=== PATIENT | female | born 1960 | race Caucasian/White ===

== ENCOUNTER → 2018-03-22 | Outpatient (CLI) | payer OTHER ==
[~2018-03-22] MED LIST: CLC100 PO; LVNIS30 SQ
[2018-03-22 12:43] LABS: BASO % 0.9 %; BASO ABS # 0.04 K/uL (0-0.2); EOS ABS # 0.14 K/uL (0-0.5); HEMATOCRIT 39.7 % (37-47); HEMOGLOBIN 13.3 g/dL (12.0-16.0); LYMPH % 31.2 %; LYMPH ABS # 1.46 K/uL (1.2-3.4); MEAN CELL VOLUME 94.3 fL (80-100); MEAN CORPUSCULAR HEMOGLOBIN 31.6 pg (25-34); MEAN CORPUSCULAR HGB CONC 33.5 g/dl (32-36); MEAN PLATELET VOLUME 9.7 fL (7.4-10.4); MONO % 7.3 %; MONO ABS # 0.34 K/uL (0.11-0.59); NEUT % 57.6 %; PLATELET COUNT 268 K/uL (130-400); RED CELL DISTRIBUTION WIDTH CV 13.5 % (11.5-14.5); RED CELL DISTRIBUTION WIDTH SD 46.7 fL (36.4-46.3); WHITE BLOOD COUNT 4.68 K/uL (4.8-10.8)
[2018-03-22 12:54] LABS: ALBUMIN 3.4 gm/dl (3.4-5.0); BLOOD UREA NITROGEN 13 mg/dl (7-18); CALCIUM 8.7 mg/dl (8.5-10.1); CARBON DIOXIDE 31 mmol/L (21-32); CREATININE 0.67 mg/dl (0.60-1.20); GLUCOSE 63 mg/dl (70-99); SODIUM 143 mmol/L (136-145)
[2018-03-22 12:57] LABS: ALKALINE PHOSPHATASE 53 U/L (45-117); ALT/SGPT 17 U/L (12-78); AST/SGOT 17 U/L (15-37); TOTAL PROTEIN 7.3 gm/dl (6.4-8.2)
== END | disposition home or self-care (01) ==
LOC: C.LAB1850 10:15
PROVIDERS: ATTEND Internal Medicine Infectious Disease
DX: T84.59XA Infection and inflammatory reaction due to other internal joint prosthesis, initial encounter (principal); Z96.659 Presence of unspecified artificial knee joint; Y79.1 Therapeutic (nonsurgical) and rehabilitative orthopedic devices associated with adverse incidents; Y83.1 Surgical operation with implant of artificial internal device as the cause of abnormal reaction of the patient, or of later complication, without mention of misadventure at the time of the procedure

== ENCOUNTER → 2018-03-29 | Outpatient (CLI) | payer OTHER ==
[~2018-03-29] MED LIST changes: +GADAVIST IV PRN
--- NOTE | 2018-03-29 19:04 | DIAGNOSTIC IMAGING REPORT ---
CERVICAL SPINE COMBO HISTORY: Pain. Neuropathy. 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 COMPARISON STUDY: None. FINDINGS: Normal signal characteristics of the vertebral bodies. Moderate degenerative disc change from C5 through C7. Signal characteristics of the cervical cord are unremarkable. Sagittal images suggest posterior extradural defects from C4 through C7. No abnormal postcontrast sagittal enhancement. Cerebellar tonsils are somewhat low-lying. C2-C3: No significant central canal or neural foraminal narrowing. C3-C4: No significant central canal or neural foraminal narrowing. C4-C5: Minimal broad-based disc bulge. There is contact with but no deformity of the cervical cord. Minimal narrowing of the neuroforamina bilaterally. C5-C6: Mild broad-based disc herniation. Mild impact anterior cervical cord. Significant narrowing of the left and to a lesser extent right neural foramina. C6-C7: Left central bulging disc showing no significant impact with the cervical cord. Moderate narrowing left neuroforamina. C7-T1: No significant central canal or neural foraminal narrowing. IMPRESSION: 1. Broad-based disc herniation C5-C6. Mild impact with anterior cervical cord with significant narrowing of the left and to a lesser extent right neural foramina. 2. Left central bulging disc C6-C7 with minimal if any impact upon the cervical cord and moderate narrowing left neuroforamina. 3. Minimal broad-based disc bulge C4-C5 4. No abnormal postcontrast enhancement The above report was generated using voice recognition software. It may contain grammatical, syntax or spelling errors. Electronically signed by: Chalino Valdivia M.D. 03/29/2018 7:02 PM Dictated Date/Time: 03/29/2018 6:56 PM
== END | disposition home or self-care (01) ==
LOC: C.MRI 17:09
PROVIDERS: ATTEND Psychiatry & Neurology Neurology
DX: M50.00 Cervical disc disorder with myelopathy, unspecified cervical region (principal); M50.222 Other cervical disc displacement at C5-C6 level; M50.223 Other cervical disc displacement at C6-C7 level

== ENCOUNTER → 2018-06-10 | Outpatient (CLI) | payer OTHER ==
[~2018-06-10] MED LIST changes: +AMOX500C3 PO; +CHOL1CAP57 PO; -CLC100 PO; +CYAN100020 PO; +DTRSR/10 PO; +FLUC100T4 PO; -GADAVIST IV PRN; -LVNIS30 SQ; +MULT-506 PO; +OXYC-90 PO
== END | disposition home or self-care (01) ==
LOC: C.MAMM 10:22
PROVIDERS: ATTEND Physician Assistant Medical
DX: M85.88 Other specified disorders of bone density and structure, other site (principal)

== ENCOUNTER → 2018-06-17 | Outpatient (CLI) | payer OTHER ==
--- NOTE | 2018-06-17 18:25 | DIAGNOSTIC IMAGING REPORT ---
MRI LUMBAR SPINE W/O CONTRAST CLINICAL HISTORY: Left leg radiculopathy and weakness. TECHNIQUE: Sagittal and axial T1, T2 and STIR images were obtained. COMPARISON STUDY: Conventional radiographic study dated 05/13/2018 OBSERVATIONS: The vertebral bodies and posterior elements appear intact. There is no abnormal bony signal present to suggest a marrow replacement process. L1-2: No disc protrusions or extrusions. No evidence of spinal canal or neural foraminal compromise. L2-3: No disc protrusions or extrusions. No evidence of spinal canal or neural foraminal compromise. L3-4: No disc protrusions or extrusions. No evidence of spinal canal or neural foraminal compromise. L4-5: No disc protrusions or extrusions. No evidence of spinal canal or neural foraminal compromise. L5-S1: There is disc degeneration disc narrowing. No focal herniations are visualized. There is no significant spinal or foraminal stenosis. In the sagittal images, there is a suspected T10-11 disc bulge. The conus medullaris and cauda equina appear normal. On the account executive metalworking images, no left kidney is visualized IMPRESSION: 1. No lumbar spine disc herniations. No evidence of spinal or foraminal stenosis 2. On the account [employer] images, no left kidney is visualized within the left renal fossa. Electronically signed by: Camilo Elliott M.D. 06/17/2018 6:23 PM Dictated Date/Time: 06/17/2018 6:18 PM
== END | disposition home or self-care (01) ==
LOC: C.MRI 17:37
PROVIDERS: ATTEND Neurological Surgery
DX: M79.606 Pain in leg, unspecified (principal)

== ENCOUNTER 2021-09-12 12:46 | Inpatient (IN) ==
[2021-09-12 13:43] LABS: Basophils # (auto) 0.02 K/uL (0-0.2); Basophils % (auto) 0.2 %; Eosinophils # (auto) 0.01 K/uL (0-0.5); Eosinophils % (auto) 0.1 %; Hematocrit (blood only) 42.1 % (37-47); Hemoglobin 13.8 g/dL (12.0-16.0); Immature Granulocytes # (auto) 0.04 K/uL (0.00-0.02); Immature Granulocytes % (auto) 0.3 %; Lymphocytes # (auto) 0.27 K/uL (1.2-3.4); Lymphocytes % (auto) 2.2 %; Mean Corpuscular Hemoglobin 30.3 pg (25-34); Mean Corpuscular Hgb Conc 32.8 g/dL (32-36); Mean Corpuscular Volume 92.5 fL (80-100); Mean Platelet Volume 10.1 fL (7.4-10.4); Monocytes # (auto) 0.53 K/uL (0.11-0.59); Monocytes % (auto) 4.2 %; Neutrophils # (auto) 11.67 K/uL (1.4-6.5); Platelet Count 265 K/uL (130-400); RDW Coefficient of Variation 14.1 % (11.5-14.5); RDW Standard Deviation 47.5 fL (36.4-46.3); Red Blood Count 4.55 M/uL (4.2-5.4); White Blood Count 12.54 K/uL (4.8-10.8)
[2021-09-12 14:03] LABS: Albumin Globulin Ratio 0.8 (0.9-2); Albumin Level 3.4 gm/dl (3.4-5.0); BUN Creatinine Ratio 18.4 (10-20); Bilirubin,Total 0.6 mg/dl (0.2-1); Calcium 9.1 mg/dl (8.5-10.1); Creatinine Clr Calc Pharmacy 94.7 ml/min; Est GFR (African American) 99.7 ml/min; Globulin 4.4 gm/dl (2.5-4.0); Total Protein 7.8 gm/dl (6.4-8.2)
[2021-09-12] MEDS ORDERED: SODIUM CHLORIDE 0.9% 1000ML 1,000 ML IV ONE (14:07)
[2021-09-12] MEDS ORDERED: ONDANSETRON INJ 2 MG/ML 2 ML VIAL IV STA (14:07)
[2021-09-12] MEDS ORDERED: cefTRIAXone SODIUM 2,000 MG/70 ML BAG IV STA (14:07)
--- NOTE | 2021-09-12 14:26 | Emergency Department Note ---
Impression & Plan Cellulitis, Lymphedema, Fever, Renal mass, Superficial thrombophlebitis ED Provider Note NAME: ELVIN SILVESTRE AGE: 61 SEX: F : 1960 ARRIVES VIA: Ambulance INFORMANT: Patient ED PROVIDER(S): Jose Bardales DO CHIEF COMPLAINT: Chills, nausea vomiting and right leg pain HPI: Patient is a 61-year-old female who went to see her PCP. She has been having right foot pain over first metatarsal for the past several weeks. Got worse over the past week. She also notes pain in the back of the calf and feels warm. She is been having shaking chills and is unable to control it. She had nausea and vomiting with this. She denies any recorded fevers. No chest pain or shortness of breath but notes that when she vomited she did feel little short of breath. No dysuria, urgency, or frequency. No other exacerbating or remitting factors. ROS: See above HPI for pertinent positives & negatives. A total of 10 systems reviewed and were otherwise negative. PAST MEDICAL HISTORY:See Below PAST SURGICAL HISTORY:See Below FAMILY HISTORY:See Below SOCIAL HISTORY:See Below HOME MEDICATIONS:See Below ALLERGIES:See Below VITALS:See Below PHYSICAL EXAMINATION: GENERAL: Sitting up in bed, alert, ill-appearing, disheveled, shaking chills EYE EXAM: normal conjunctiva. PERRL and EOM's grossly intact. OROPHARYNX: Dry mucous membranes NECK: supple, no nuchal rigidity, no adenopathy, non-tender LUNGS: Clear to auscultation. Normal chest wall mechanics HEART: no murmurs, S1 normal and S2 normal ABDOMEN: abdomen soft, non-tender, normo-active bowel sounds, no masses, no rebound or guarding. BACK: Back is symmetrical on inspection and there is no deformity, no midline tenderness, no CVA tenderness. SKIN: no rashes and no bruising UPPER EXTREMITIES: upper extremities are grossly normal. LOWER EXTREMITIES: Calves are equal bilateral. Right calf is warm tender with mild overlying erythema in the posterior aspect. DPs 2 out of 4. Tenderness over the first metatarsal. NEURO EXAM: Normal sensorium, cranial nerves II-XII grossly intact, normal speech, no gross weakness of arms, no gross weakness of legs. No drift. Finger to nose intact. Gross sensation intact. MEDICAL DECISION MAKING: Patient is a 61-year-old female who presents the ER for pain tenderness and warmth as well as erythema in the back of the right calf associated with shaking chills leukocytosis and low-grade fever. IV was established blood work was obtained. She was sent by PCP. Labs showed mild leukocytosis 12.5 thousand. No significant anemia. INR was unremarkable. BMP with slightly elevated chloride. LFTs bilirubin was unremarkable. Troponin was negative. Pro-Mitul 0.46. UA was negative. Covid was negative. Chest x-ray was unremarkable. CT abdomen pelvis showed a questionable renal carcinoma. This was discussed with the patient. Venous Doppler shows superficial thrombosis and the saphenous was very torturous. Nothing is within 5 cm of deep venous structure. There is a small distal clot that may be close to 5 cm per radiology/Franky. Will defer to the hospitalist for treatment and hold at this time. Patient was given IV Rocep hin. She was updated bedside. Discussed with hospitalist and she will be evaluated for further work-up. Triage Nursing notes reviewed. Limited review of prior medical records performed Vital Signs: reviewed and remarkable for no significant abnormalities Differential diagnosis: Differential diagnosis includes etiologies such as sepsis, UTI, pneumonia, metabolic, electrolyte abnormalities, cardiac sources, intracerebral event, toxicologic, neurological, as well as others were entertained. ER treatment provided: See below Diagnostics interpreted by me: ECG: Sinus rhythm rate of 87 Normal axis Poor baseline QTC 450 Cardiac Monitoring: An order was placed for continuous cardiac monitoring. The monitor shows a rate of 90 with sinus rhythm. Laboratory studies: As stated above and show below. Imaging studies: CT abdomen pelvis showed questionable renal carcinoma X-ray of the foot was reviewed as it was done earlier today and [facility] and showed no obvious fractures or dislocations per my review Duplex of the lower extremity shows multiple areas of superficial clot and was very torturous. Nothing is within 5 cm of deep venous structure. There is a small distal clot that may be close to 5 cm per Franky from radiology. Consultation(s): Discussed with Dr. Mast for further evaluation Procedures: none Critical Care: None Past Med/Surg History Medical History (Updated 09/12/21 @ 16:39 by Jose Bardales DO) Chronic back pain Degenerative disc disease History of asthma History of depression History of hyperlipidemia History of migraine headaches History of sleep apnea NO LONGER USES DEVICE SINCE WT LOSS Morbid obesity with BMI of 40.0-44.9, adult Osteopenia of lumbar spine Vitamin B12 deficiency Surgical History H/O gastric bypass H/O hernia repair H/O total knee replacement (12/07/14) History of 2 sections History of cardiac cath 2010 - [facility] - ABN EKG - NO STENTS/ANGIOPLASTY History of colonoscopy History of D&C History of eye surgery X 3 History of foot surgery History of hernia repair X 2 UMBILICAL History of left knee replacement History of ovarian cystectomy History of revision of total replacement of left knee joint History of weight loss surgery 2016 History of wisdom tooth extraction Hx of section Nausea and vomiting after administration of anesthetic agent Family History Father Cardiac disorder Myocardial infarction Grandfather Heart disease Mother Diabetes Chronic kidney disease Breast cancer Stroke syndrome Hypertension Heart disease Stroke Sister Ovarian cancer Diabetes Valvular heart disease Atrial fibrillation Cardiomyopathy Malignant neoplasm of uterus Slow to wake up after anesthesia Breast cancer Grandmother Diabetes Hypertension Daughter Endometriosis Uncle Myocardial infarction Grandmother (Maternal) No problems noted. 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) How many Children do You have: 2 Feels Safe at Home: Yes Childhood Exposure to Second-Hand Smoke: Yes caffeine: Yes Dental Care, Regularly: Yes Physical Activity Frequency: Does not Exercise Seatbelt Use: always Sunscreen Use: Yes Assistive Devices: Denture - Upper and Glasses Allergies Allergies Allergy/AdvReac Type Severity Reaction Status Date / Time coconut Allergy Severe HIVES Verified 08/14/21 08:22 Sulfa (Sulfonamide Allergy Unknown PT UNSURE Verified 08/19/21 12:59 Antibiotics) oxaprozin Allergy Unknown Verified 08/14/21 08:22 Home Meds Home Medications Medication Instructions Recorded Confirmed cyanocobalamin (vitamin B-12) 1,000 mcg PO PM tab 05/17/19 08/14/21 1,000 mcg tablet multivitamin 1 tab PO PM 05/17/19 08/14/21 ascorbic acid (vitamin C) 500 mg 500 mg PO PM cap 06/08/19 08/14/21 capsule cholecalciferol (vitamin D3) 125 5,000 unit PO PM 06/20/19 08/14/21 mcg (5,000 unit) tablet (Vitamin D3) ibuprofen 600 mg tablet 600 mg PO BID PRN 12/08/19 08/14/21 fluconazole 150 mg tablet 150 mg PO Q3D PRN tab 05/30/21 08/14/21 Previous Rx's Medication Instructions Recorded escitalopram oxalate 10 mg tablet 10 mg PO DAILY #30 tab 11/28/20 (Lexapro) doxycycline hyclate 100 mg capsule 100 mg PO BID #14 cap 08/19/21 Results & Data (ED) Vital Signs Vital Signs - 24 hr 09/12/21 12:46 09/12/21 15:12 09/12/21 15:30 Temperature 37.7 C H Temperature Source Oral Pulse Rate 88 72 Pulse Rate [Apical] 74 Pulse Rate from SpO2 Sensor 72 Respiratory Rate 18 19 22 Respiratory Effort / Characteristics Non-Labored Non-Labored Spontaneous Respiratory Depth Normal Respiratory Pattern Regular Blood Pressure 140/85 139/70 Blood Pressure [Right Arm] 142/72 H Blood Pressure Mean 103 93 Blood Pressure Mean [Right Arm] 95 Pulse Oximetry 98 95 95 Oxygen Delivery Method Room Air Room Air Room Air Sepsis Recent Fever Within 48 Hours No Sepsis New/Unexplained Change in Mental Status No Sepsis Action Taken by Nursing No Action Required 09/12/21 16:18 Temperature Temperature Source Pulse Rate 84 Pulse Rate [Apical] Pulse Rate from SpO2 Sensor 82 Respiratory Rate 21 Respiratory Effort / Characteristics Respiratory Depth Respiratory Pattern Blood Pressure 126/67 Blood Pressure [Right Arm] Blood Pressure Mean 86 Blood Pressure Mean [Right Arm] Pulse Oximetry 96 Oxygen Delivery Method Room Air Sepsis Recent Fever Within 48 Hours Sepsis New/Unexplained Change in Mental Status Sepsis Action Taken by Nursing Laboratory Data Result diagrams: 09/12/21 13:00 09/12/21 15:10 Lab Results 09/12/21 09/12/21 09/12/21 Range/Units 13:00 13:00 14:15 WBC 12.54 H (4.8-10.8) K/uL RBC 4.55 (4.2-5.4) M/uL Hgb 13.8 (12.0-16.0) g/dL Hct 42.1 (37-47) % MCV 92.5 (80-100) fL MCH 30.3 (25-34) pg MCHC 32.8 (32-36) g/dL RDW Std Deviation 47.5 H (36.4-46.3) fL RDW Coeff of Ashlie 14.1 (11.5-14.5) % Plt Count 265 (130-400) K/uL MPV 10.1 (7.4-10.4) fL Immature Gran % (Auto) 0.3 % Neut % (Auto) 93.0 % Lymph % (Auto) 2.2 % [place] % (Auto) 4.2 % Eos % (Auto) 0.1 % Baso % (Auto) 0.2 % Neut # (Auto) 11.67 H (1.4-6.5) K/uL Lymph # (Auto) 0.27 L (1.2-3.4) K/uL [place] # (Auto) 0.53 (0.11-0.59) K/uL Eos # (Auto) 0.01 (0-0.5) K/uL Baso # (Auto) 0.02 (0-0.2) K/uL Immature Gran # (Auto) 0.04 H (0.00-0.02) K/uL PT 10.3 (9.0-12.0) Seconds INR 1.0 (0.9-1.1) APTT 24.8 (21.0-31.0) Seconds PTT Ratio 0.9 Sodium 139 (136-145) mmol/L Potassium (3.5-5.1) mmol/L Chloride 108 H (98-107) mmol/L Carbon Dioxide 25 (21-32) mmol/L Anion Gap 5.0 (3-11) BUN 14 (7-18) mg/dl Creatinine 0.75 (0.6-1.2) mg/dl Est Cr Clr Drug Dosing 94.7 ml/min Est GFR ( Amer) 99.7 ml/min Est GFR (Non-Af Amer) 86.0 ml/min BUN/Creatinine Ratio 18.4 (10-20) Glucose 93 (70-99) mg/dl Lactate (0.4-2.0) mmol/L Calcium 9.1 (8.5-10.1) mg/dl Magnesium (1.8-2.4) mg/dl Total Bilirubin 0.6 (0.2-1) mg/dl AST (15-37) U/L ALT 14 (12-78) U/L Alkaline Phosphatase 62 (45-117) U/L Troponin I (0-0.045) ng/ml Total Protein 7.8 (6.4-8.2) gm/dl Albumin 3.4 (3.4-5.0) gm/dl Globulin 4.4 H (2.5-4.0) gm/dl Albumin/Globulin Ratio 0.8 L (0.9-2) Procalcitonin (0-0.5) ng/ml Urine Color Urine Appearance (Clear) Urine pH (4.5-7.5) Ur Specific [place] (1.000-1.030) Urine Protein (Negative) Urine Glucose (UA) (Negative) Urine Ketones (Negative) Urine Blood (Negative) Urine Nitrite (Negative) Urine Bilirubin (Negative) Urine Urobilinogen (Negative) Ur Leukocyte Esterase (Negative) COVID-19 Eval Order SARS-CoV-2 (PCR) (Negative) 09/12/21 09/12/21 09/12/21 Range/Units 14:15 14:25 14:50 WBC (4.8-10.8) K/uL RBC (4.2-5.4) M/uL Hgb (12.0-16.0) g/dL Hct (37-47) % MCV (80-100) fL MCH (25-34) pg MCHC (32-36) g/dL RDW Std Deviation (36.4-46.3) fL RDW Coeff of Ashlie (11.5-14.5) % Plt Count (130-400) K/uL MPV (7.4-10.4) fL Immature Gran % (Auto) % Neut % (Auto) % Lymph % (Auto) % [place] % (Auto) % Eos % (Auto) % Baso % (Auto) % Neut # (Auto) (1.4-6.5) K/uL Lymph # (Auto) (1.2-3.4) K/uL [place] # (Auto) (0.11-0.59) K/uL Eos # (Auto) (0-0.5) K/uL Baso # (Auto) (0-0.2) K/uL Immature Gran # (Auto) (0.00-0.02) K/uL PT (9.0-12.0) Seconds INR (0.9-1.1) APTT (21.0-31.0) Seconds PTT Ratio Sodium (136-145) mmol/L Potassium (3.5-5.1) mmol/L Chloride (98-107) mmol/L Carbon Dioxide (21-32) mmol/L Anion Gap (3-11) BUN (7-18) mg/dl Creatinine (0.6-1.2) mg/dl Est Cr Clr Drug Dosing ml/min Est GFR ( Amer) ml/min Est GFR (Non-Af Amer) ml/min BUN/Creatinine Ratio (10-20) Glucose (70-99) mg/dl Lactate 1.0 (0.4-2.0) mmol/L Calcium (8.5-10.1) mg/dl Magnesium (1.8-2.4) mg/dl Total Bilirubin (0.2-1) mg/dl AST (15-37) U/L ALT (12-78) U/L Alkaline Phosphatase (45-117) U/L Troponin I (0-0.045) ng/ml Total Protein (6.4-8.2) gm/dl Albumin (3.4-5.0) gm/dl Globulin (2.5-4.0) gm/dl Albumin/Globulin Ratio (0.9-2) Procalcitonin (0-0.5) ng/ml Urine Color Yellow Urine Appearance Clear (Clear) Urine pH 8.5 H (4.5-7.5) Ur Specific [place] 1.015 (1.000-1.030) Urine Protein Negative (Negative) Urine Glucose (UA) Negative (Negative) Urine Ketones Negative (Negative) Urine Blood Negative (Negative) Urine Nitrite Negative (Negative) Urine Bilirubin Negative (Negative) Urine Urobilinogen Negative (Negative) Ur Leukocyte Esterase Negative (Negative) COVID-19 Eval Order Covid19 at [facility] SARS-CoV-2 (PCR) (Negative) 09/12/21 09/12/21 09/12/21 Range/Units 14:50 15:10 15:10 WBC (4.8-10.8) K/uL RBC (4.2-5.4) M/uL Hgb (12.0-16.0) g/dL Hct (37-47) % MCV (80-100) fL MCH (25-34) pg MCHC (32-36) g/dL RDW Std Deviation (36.4-46.3) fL RDW Coeff of Ashlie (11.5-14.5) % Plt Count (130-400) K/uL MPV (7.4-10.4) fL Immature Gran % (Auto) % Neut % (Auto) % Lymph % (Auto) % [place] % (Auto) % Eos % (Auto) % Baso % (Auto) % Neut # (Auto) (1.4-6.5) K/uL Lymph # (Auto) (1.2-3.4) K/uL [place] # (Auto) (0.11-0.59) K/uL Eos # (Auto) (0-0.5) K/uL Baso # (Auto) (0-0.2) K/uL Immature Gran # (Auto) (0.00-0.02) K/uL PT (9.0-12.0) Seconds INR (0.9-1.1) APTT (21.0-31.0) Seconds PTT Ratio Sodium (136-145) mmol/L Potassium 4.1 (3.5-5.1) mmol/L Chloride (98-107) mmol/L Carbon Dioxide (21-32) mmol/L Anion Gap (3-11) BUN (7-18) mg/dl Creatinine (0.6-1.2) mg/dl Est Cr Clr Drug Dosing ml/min Est GFR ( Amer) ml/min Est GFR (Non-Af Amer) ml/min BUN/Creatinine Ratio (10-20) Glucose (70-99) mg/dl Lactate (0.4-2.0) mmol/L Calcium (8.5-10.1) mg/dl Magnesium 1.7 L (1.8-2.4) mg/dl Total Bilirubin (0.2-1) mg/dl AST 15 (15-37) U/L ALT (12-78) U/L Alkaline Phosphatase (45-117) U/L Troponin I < 0.015 (0-0.045) ng/ml Total Protein (6.4-8.2) gm/dl Albumin (3.4-5.0) gm/dl Globulin (2.5-4.0) gm/dl Albumin/Globulin Ratio (0.9-2) Procalcitonin 0.46 (0-0.5) ng/ml Urine Color Urine Appearance (Clear) Urine pH (4.5-7.5) Ur Specific [place] (1.000-1.030) Urine Protein (Negative) Urine Glucose (UA) (Negative) Urine Ketones (Negative) Urine Blood (Negative) Urine Nitrite (Negative) Urine Bilirubin (Negative) Urine Urobilinogen (Negative) Ur Leukocyte Esterase (Negative) COVID-19 Eval Order SARS-CoV-2 (PCR) NEGATIVE (Negative) Administered Medications Discontinued Medications Sodium Chloride (Nss 1000ml) 1,000 mls @ 999 mls/hr IV .Q1H1M ONE Stop: 09/12/21 15:07 Last Admin: 09/12/21 14:54 Dose: 999 mls/hr Documented by: [id number] Ceftriaxone Sodium (Rocephin) 2,000 mg in 70 mls @ 140 mls/hr IV NOW STA Stop: 09/12/21 14:36 Last Infusion: 09/12/21 15:23 Dose: 0 mls/hr Documented by: [id number] Admin: 09/12/21 14:53 Dose: 140 mls/hr Documented by: [id number] Ioversol (Optiray 320 100ml) 96 ml IV ONCE ONE Stop: 09/12/21 15:00 Last Admin: 09/12/21 15:02 Dose: 96 ml Documented by: [id number] Ondansetron HCl (Ondansetron Inj 2 Mg/Ml 2 Ml Vial) 4 mg IV NOW STA Stop: 09/12/21 14:08 Last Admin: 09/12/21 14:54 Dose: 4 mg Documented by: [id number] Imaging Data Radiologist's Impression: Abdomen/Pelvis CT 09/12/21 14:07 CT SCAN OF THE ABDOMEN AND PELVIS WITH IV CONTRAST CLINICAL HISTORY: Vomiting. COMPARISON STUDY: No priors. TECHNIQUE: Following the IV administration of 96 cc of Optiray 320, CT scan of the abdomen and pelvis is performed from the lung bases to the proximal femora. Images are reviewed in the axial, sagittal, and coronal planes. IV contrast was administered without complication. A dose lowering technique was utilized adhering to the principles of ALARA. The examination is degraded by motion artifact. CT DOSE: 935.11 mGy.cm FINDINGS: Lung bases: The heart is normal in size and without pericardial effusion. There is elevation of the right hemidiaphragm and bibasilar atelectasis. No airspace consolidation or pleural effusion is identified. Liver: The contrast-enhanced liver is enlarged, measuring 22 cm in length. The liver demonstrates diffusely diminished attenuation consistent with hepatic st eatosis. There is no intrahepatic biliary ductal dilatation. The hepatic veins and portal veins are patent. Gallbladder: Unremarkable. Spleen: Normal in size and attenuation. There are calcified splenic granulomas. Pancreas: Unremarkable. Adrenal glands: Unremarkable. Kidneys: No left kidney is identified. 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 Both renal moieties enhance homogeneously. A 3 mm nonobstructing calculus is seen in the right upper pole moiety. There is no hydronephrosis. A 2.3 cm soft tissue lesion arises from the right pelvic renal moiety seen on image #288. Abdominal vasculature: The abdominal aorta is normal in course and caliber noting mild to moderate atherosclerotic calcification. Stomach and bowel: Postoperative change is seen involving the stomach. There is moderate to advanced colonic diverticulosis without CT evidence of acute diverticulitis. No bowel obstruction is seen. Fecal retention is present throughout the colon. The appendix is well-visualized and normal. Peritoneum: There is no intraperitoneal free air or abdominal ascites. There is a ventral surgical scar with evidence of previous ventral hernia repair. Lymphadenopathy: There is bilateral inguinal lymphadenopathy, right greater than left. The largest node seen on image #460 and measures 3.4 x 2.1 cm. Prominent retroperitoneal iliac chain nodes measure up to 12 mm short axis (axial image #201. No upper abdominal or mesenteric adenopathy is seen. Pelvic viscera: The bladder, uterus, and adnexa are normal as visualized. Skeletal structures: The skeletal structures are osteopenic. There is mild to moderate lumbosacral spondylosis. No lytic or blastic lesions are seen. IMPRESSION: 1. There are no acute infectious or inflammatory findings in the abdomen or pelvis. 2. Postoperative change is noted in the stomach. No bowel obstruction is identified. 3. 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 4. A 2.3 cm soft tissue lesion arises from the lower pole of the right pelvic renal moiety. Renal cell carcinoma is the diagnosis of exclusion. Follow-up with urology is recommended. 5. A nonobstructing calculus is noted in the right upper renal moiety. 6. Moderate to advanced colonic diverticulosis without CT evidence of acute diverticulitis. 7. Right greater than left inguinal lymphadenopathy is nonspecific and may be reactive. There are also prominent retroperitoneal and iliac chain nodes. Clinical correlation will be required. 8. Additional findings as above. ACT 112: Positive. There are findings on this exam that require communication between the performing entity and the patient following Patient Test Result Information Act ([place] Act 112) guidelines. Electronically signed by: Solis Pa M.D. 09/12/2021 3:22 PM Venous Doppler Study 09/12/21 14:07 RIGHT LOWER EXTREMITY VENOUS DOPPLER HISTORY: Right lower cavity pain. COMPARISON STUDY: None. FINDINGS: There is normal compressibility, flow, and augmentation within the right lower extremity deep venous system. Multiple areas of thrombosis seen within the right greater saphenous vein at the proximal thigh, distal thigh, proximal calf. A few mildly enlarged right inguinal lymph nodes measuring up to 4.4 x 3.9 x 1.5 cm. IMPRESSION: 1. No DVT within the right lower extremity. 2. Scattered areas of superficial thrombus identified within the right greater saphenous vein. 3. Mild right inguinal lymphadenopathy. ACT 112: Negative or not required by law. Electronically signed by: Franky Yoo M.D. 09/12/2021 4:16 PM Chest X-Ray 09/12/21 14:08 XR chest 1V portable CLINICAL HISTORY: Sepsis. COMPARISON STUDY: Chest radiograph July 01, 2019. FINDINGS: Lung volumes are normal. Lungs are clear. There is no pneumothorax or pleural effusion. Cardiac size is normal. Mediastinal contours are normal. There is no evidence for pulmonary edema. IMPRESSION: No acute cardiopulmonary findings. ACT 112: Negative or not required by law. Electronically signed by: Sahil Tineo M.D. 09/12/2021 3:08 PM Discharge Plan Visit Data Chief Complaint: Illness Stated Complaint: CHILLS, NAUSEA, VOMITING, R FOOT PAIN ED Provider: oJse Bardales Discharge Problem: Cellulitis, Lymphedema, Fever, Renal mass, Superficial thrombophlebitis Forms Stand Alone Forms: My [facility] Prescriptions Prescriptions: No Action doxycycline hyclate 100 mg capsule 100 mg PO BID Qty: 14 RF: 0 escitalopram oxalate [Lexapro] 10 mg tablet 10 mg PO DAILY Qty: 30 RF: 5 cyanocobalamin (vitamin B-12) 1,000 mcg tablet 1,000 mcg PO PM RF: 0 fluconazole 150 mg tablet 150 mg PO Q3D PRN (Reason: Unknown) RF: 0 multivitamin tablet 1 tab PO PM RF: 0 ascorbic acid (vitamin C) 500 mg capsule 500 mg PO PM RF: 0 cholecalciferol (vitamin D3) [Vitamin D3] 5,000 unit Tablet 5,000 unit PO PM RF: 0 ibuprofen 600 mg tablet 600 mg PO BID PRN (Reason: pain) RF: 0 Referrals Referrals: Inocente Daley MD [Primary Care Provider] - Discharge Problem: Cellulitis Qualifiers: Site of cellulitis: unspecified site Qualified Code(s): L03.90 - Cellulitis, unspecified Fever Qualifiers: Fever type: unspecified Qualified Code(s): R50.9 - Fever, unspecified Superficial thrombophlebitis Qualifiers: Superficial thrombophlebitis-Involved body area: lower extremity Laterality: right Qualified Code(s): I80.01 - Phlebitis and thrombophlebitis of superficial vessels of right lower extremity
[2021-09-12 14:38] LABS: Appearance Urine Clear (Clear); Bilirubin Urine Negative (Negative); Blood Urine Negative (Negative); Color Urine Yellow; Glucose Urine UA Negative (Negative); Ketones Urine Negative (Negative); Leukocyte Esterase Urine Negative (Negative); Nitrite Urine Negative (Negative); Protein Urine Negative (Negative); Specific Gravity Urine 1.015 (1.000-1.030); Urobilinogen Urine Negative (Negative); pH Urine 8.5 (4.5-7.5)
[2021-09-12 14:43] LABS: Partial Thromboplastin Ratio 0.9; Partial Thromboplastin Time 24.8 Seconds (21.0-31.0); Prothrombin Time 10.3 Seconds (9.0-12.0)
[2021-09-12] MEDS ORDERED: OPTIRAY 320 100ml IV ONE (14:59)
--- NOTE | 2021-09-12 15:09 | XRay Report ---
XR chest 1V portable CLINICAL HISTORY: Sepsis. COMPARISON STUDY: Chest radiograph July 01, 2019. FINDINGS: Lung volumes are normal. Lungs are clear. There is no pneumothorax or pleural effusion. Car diac size is normal. Mediastinal contours are normal. There is no evidence for pulmonary edema. IMPRESSION: No acute cardiopulmonary findings. ACT 112: Negative or not required by law. Electronically signed by: Sahil Tineo M.D. 09/12/2021 3:08 PM
--- NOTE | 2021-09-12 15:23 | CT Scan Report ---
CT SCAN OF THE ABDOMEN AND PELVIS WITH IV CONTRAST CLINICAL HISTORY: Vomiting. COMPARISON STUDY: No priors. TECHNIQUE: Following the IV administration of 96 cc of Optiray 320, CT scan of the abdomen and pelvi s is performed from the lung bases to the proximal femora. Images are reviewed in the axial, sagittal , and coronal planes. IV contrast was administered without complication. A dose lowering technique wa s utilized adhering to the principles of ALARA. The examination is degraded by motion artifact. CT DOSE: 935.11 mGy.cm FINDINGS: Lung bases: The heart is normal in size and without pericardial effusion. There is elevation of the r ight hemidiaphragm and bibasilar atelectasis. No airspace consolidation or pleural effusion is identi fied. Liver: The contrast-enhanced liver is enlarged, measuring 22 cm in length. The liver demonstrates dif fusely diminished attenuation consistent with hepatic steatosis. There is no intrahepatic biliary esthela david dilatation. The hepatic veins and portal veins are patent. Gallbladder: Unremarkable. Spleen: Normal in size and attenuation. There are calcified splenic granulomas. Pancreas: Unremarkable. Adrenal glands: Unremarkable. Kidneys: No left kidney is identified. 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 Both renal m oieties enhance homogeneously. A 3 mm nonobstructing calculus is seen in the right upper pole moiety. There is no hydronephrosis. A 2.3 cm soft tissue lesion arises from the right pelvic renal moiety se en on image #288. Abdominal vasculature: The abdominal aorta is normal in course and caliber noting mild to moderate at herosclerotic calcification. Stomach and bowel: Postoperative change is seen involving the stomach. There is moderate to advanced colonic diverticulosis without CT evidence of acute diverticulitis. No bowel obstruction is seen. Fec al retention is present throughout the colon. The appendix is well-visualized and normal. Peritoneum: There is no intraperitoneal free air or abdominal ascites. There is a ventral surgical sc ar with evidence of previous ventral hernia repair. Lymphadenopathy: There is bilateral inguinal lymphadenopathy, right greater than left. The largest no de seen on image #460 and measures 3.4 x 2.1 cm. Prominent retroperitoneal iliac chain nodes measure up to 12 mm short axis (axial image #201. No upper abdominal or mesenteric adenopathy is seen. Pelvic viscera: The bladder, uterus, and adnexa are normal as visualized. Skeletal structures: The skeletal structures are osteopenic. There is mild to moderate lumbosacral sp ondylosis. No lytic or blastic lesions are seen. IMPRESSION: 1. There are no acute infectious or inflammatory findings in the abdomen or pelvis. 2. Postoperative change is noted in the stomach. No bowel obstruction is identified. 3. 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 4. A 2.3 cm soft tissue lesion arises from the lower pole of the right pelvic renal moiety. Renal tracey l carcinoma is the diagnosis of exclusion. Follow-up with urology is recommended. 5. A nonobstructing calculus is noted in the right upper renal moiety. 6. Moderate to advanced colonic diverticulosis without CT evidence of acute diverticulitis. 7. Right greater than left inguinal lymphadenopathy is nonspecific and may be reactive. There are als o prominent retroperitoneal and iliac chain nodes. Clinical correlation will be required. 8. Additional findings as above. ACT 112: Positive. There are findings on this exam that require communication between the performing entity and the patient following Patient Test Result Information Act ([place] Act 112) guidelines. Electronically signed by: Solis Pa M.D. 09/12/2021 3:22 PM
--- NOTE | 2021-09-12 15:31 | Electrocardiogram Report ---
Test Reason : Blood Pressure : / mmHG Vent. Rate : 087 BPM Atrial Rate : 087 BPM P-R Int : 148 ms QRS Dur : 086 ms QT Int : 374 ms P-R-T Axes : 071 018 071 degrees QTc Int : 450 ms Poor data quality, interpretation may be adversely affected Sinus rhythm with Premature atrial complexes Possible Left atrial enlargement Borderline ECG When compared with ECG of 05-DEC-2014 12:13, Premature atrial complexes are now Present Confirmed by Klaus Lozada ([id number]) on 09/12/2021 3:31:16 PM Referred By: Confirmed By:Klaus Lozada
[2021-09-12 15:37] LABS: Potassium 4.1 mmol/L (3.5-5.1)
[2021-09-12 15:47] LABS: Aspartate Aminotransferase 15 U/L (15-37); Magnesium 1.7 mg/dl (1.8-2.4); Troponin I < 0.015 ng/ml (0-0.045)
--- NOTE | 2021-09-12 16:18 | Ultrasound Report ---
RIGHT LOWER EXTREMITY VENOUS DOPPLER HISTORY: Right lower cavity pain. COMPARISON STUDY: None. FINDINGS: There is normal compressibility, flow, and augmentation within the right lower extremity de ep venous system. Multiple areas of thrombosis seen within the right greater saphenous vein at the pr oximal thigh, distal thigh, proximal calf. A few mildly enlarged right inguinal lymph nodes measuring up to 4.4 x 3.9 x 1.5 cm. IMPRESSION: 1. No DVT within the right lower extremity. 2. Scattered areas of superficial thrombus identified within the right greater saphenous vein. 3. Mild right inguinal lymphadenopathy. ACT 112: Negative or not required by law. Electronically signed by: Franky Yoo M.D. 09/12/2021 4:16 PM
--- NOTE | 2021-09-12 16:31 | History & Physical Report ---
Date of Service September 12, 2021 Assessment & Plan (1) Cellulitis: Plan: Patient reports she has not had any episodes of MRSA. will admit and place on cefazolin 2 gr IV Q8H Patient received a one time dose of ceftriaxone by the ED. will closely monitor her vitals and cbc in AM. (2) Renal mass: Plan: Incidental finding on CT scan will need urology followup (3) Tremor: Plan: chronci and appears stable Patient will followup with Neuro as an outpatient (4) Vitamin B12 deficiency: Plan: on B12 supplements as an outpatient. (5) H/O gastric bypass: (6) Fever: Plan: Patient had a temp while in the ER. will closely monitor vitals. 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 Patient was then placed on chronic suppresion and treated with amoxicillin. Patient follows Dr. Wheeler. Since then patient has had recurrent episodes of right lower extremity cellulitis. Patient has been off antibiotics since January this year without any setbacks, until not. Patient comes in today with a 1 day history of fever, chills, rigors. Patient feels she has pain in her left foot and is unable to bear weight. She was seen by her local telephone operator who states she needed to come to the hospital as she appeared to be sick. Allergies Allergy/AdvReac Type Severity Reaction Status Date / Time coconut Allergy Severe HIVES Verified 09/12/21 16:35 Sulfa (Sulfonamide Allergy Unknown PT UNSURE Verified 09/12/21 16:35 Antibiotics) oxaprozin Allergy Unknown Verified 09/12/21 16:35 Home Medications Medication Instructions Recorded Confirmed Type cyanocobalamin (vitamin B-12) 1,000 mcg PO PM tab 05/17/19 09/12/21 History 1,000 mcg tablet multivitamin 1 tab PO PM 05/17/19 09/12/21 History ascorbic acid (vitamin C) 500 mg 500 mg PO PM cap 06/08/19 09/12/21 History capsule cholecalciferol (vitamin D3) 125 5,000 unit PO PM 06/20/19 09/12/21 History mcg (5,000 unit) tablet (Vitamin D3) ibuprofen 600 mg tablet 600 mg PO BID PRN 12/08/19 09/12/21 History escitalopram oxalate 10 mg tablet 10 mg PO DAILY #30 tab 11/28/20 09/12/21 Rx (Lexapro) fluconazole 150 mg tablet 150 mg PO Q3D PRN tab 05/30/21 09/12/21 History doxycycline hyclate 100 mg capsule 100 mg PO BID #14 cap 08/19/21 09/12/21 Rx Past Med/Surg History Medical History Chronic back pain Degenerative disc disease History of asthma History of depression History of hyperlipidemia History of migraine headaches History of sleep apnea NO LONGER USES DEVICE SINCE WT LOSS Morbid obesity with BMI of 40.0-44.9, adult Osteopenia of lumbar spine Vitamin B12 deficiency Surgical History H/O gastric bypass H/O hernia repair H/O total knee replacement (12/07/14) History of 2 sections History of cardiac cath 2009 - [facility] - ABN EKG - NO STENTS/ANGIOPLASTY History of colonoscopy History of D&C History of eye surgery X 3 History of foot surgery History of hernia repair X 2 UMBILICAL History of left knee replacement History of ovarian cystectomy History of revision of total replacement of left knee joint History of weight loss surgery 2016 History of wisdom tooth extraction Hx of section Nausea and vomiting after administration of anesthetic agent Family History Father Cardiac disorder Myocardial infarction Grandfather Heart disease Mother Diabetes Chronic kidney disease NKF Classification Breast cancer Stroke syndrome Hypertension Heart disease Stroke Sister Ovarian cancer Diabetes Valvular heart disease Atrial fibrillation Cardiomyopathy Malignant neoplasm of uterus Slow to wake up after anesthesia Breast cancer Grandmother Diabetes Hypertension Daughter Endometriosis Uncle Myocardial infarction Grandmother (Maternal) No problems noted. 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) How many Children do You have: 2 Feels Safe at Home: Yes Childhood Exposure to Second-Hand Smoke: Yes caffeine: Yes Dental Care, Regularly: Yes Physical Activity Frequency: Does not Exercise Seatbelt Use: always Sunscreen Use: Yes Assistive Devices: Denture - Upper and Glasses Review of Systems Constitutional: + fever; no sweats Eyes: no blind spots and no diplopia Ear, Nose, Mouth, Throat: no ear pain and no ear trauma Respiratory: no cough and no change in sputum Cardiovascular: no chest pain and no chest pain with activity Gastrointestinal: no abdominal pain Genitourinary: no dysuria and no urinary frequency Musculoskeletal: no back pain Integumentary: no acne and no rash Neurologic: no gait abnormality and no falls Psychiatric: no behavioral changes and no hopelessness Endocrine: no fatigue Hematologic / Lymphatic: no easy bleeding Physical Exam Physical Exam: Constitutional: Patient is pleasant, alert answering questions appropriately and appears to be in no distress. Sister is at bedside. Eyes: anicteric sclerae. Respiratory: Lungs sinha are clear to auscultation without wheezes, rhonchi or rales. Cardiovascular: Regular Rate and Rhythm, Heart Murmur 2/6 holosystolic murmur heard best at RUSB. No rubs or gallops appreciated. Gastrointestinal (Abdomen): Normoactive bowel sounds x4, soft, non-distended, non-tender. Musculoskeletal: No cyanosis or clubbing is appreciated. Trace lymphedema noted to BLE. Extremities: She's noted to have mild erythema circumferentially around the right ankle. This is extremely warm and tender to touch. No open areas are noted. No fluctuant areas are noted. Vascular: DP and PT +2 RLE. Results & Data Results & Data ([facility]) Vital Signs (Past 12 Hours) Vital Signs Temp Pulse Pulse Resp BP BP Pulse Ox 09/12/21 16:18 84 21 126/67 96 09/12/21 15:30 72 22 139/70 95 09/12/21 15:12 74 19 142/72 H 95 09/12/21 12:46 37.7 C H 88 18 140/85 98 PG Care Time/CCT Total # of Minutes Spent Total Time Spent with Patient: Total time spent is greater than 50% in coordination of care (as documented) at patient's floor/unit and/or counseling patient: Coding Level of Care Code 87470 Initial Inpt Care Lvl 3 Diagnoses Cellulitis L03.90 Site of cellulitis: unspecified site Renal mass N28.89 Tremor R25.1 Vitamin B12 deficiency E53.8 H/O gastric bypass Z98.84 Fever R50.9 Fever type: unspecified (1) Cellulitis Site of cellulitis: unspecified site Qualified Code(s): L03.90 - Cellulitis, unspecified (2) Fever Fever type: unspecified Qualified Code(s): R50.9 - Fever, unspecified
[2021-09-12] MEDS ORDERED: ACETAMINOPHEN 325 MG TAB PO PRN (18:43)
[2021-09-12] MEDS ORDERED: ACETAMINOPHEN 325 MG TAB PO SCH (18:45)
[2021-09-12] MEDS: ASCORBIC ACID 500 MG TAB PO SCH (21:55)
[2021-09-12] MEDS: CHOLECALCIFEROL 1,000 UNITS 25 MCG TAB PO SCH (21:55)
[2021-09-12] MEDS: MULTIVITAMIN TAB PO SCH (21:56)
[2021-09-12] MEDS: CYANOCOBALAMIN 500 MCG TABLET (VITAMIN B-12) PO SCH (21:56)
[2021-09-12] MEDS ORDERED: SODIUM CHLORIDE 0.9% 1000ML 500 ML IV ONE (22:34)
[2021-09-13] MEDS: ACETAMINOPHEN 500 MG TAB PO PRN (04:22)
[2021-09-13 07:19] LABS: Hematocrit (blood only) 35.5 % (37-47); Hemoglobin 11.5 g/dL (12.0-16.0); Mean Corpuscular Hemoglobin 29.9 pg (25-34); Mean Corpuscular Hgb Conc 32.4 g/dL (32-36); Mean Corpuscular Volume 92.2 fL (80-100); Mean Platelet Volume 9.6 fL (7.4-10.4); Platelet Count 206 K/uL (130-400); RDW Coefficient of Variation 14.4 % (11.5-14.5); RDW Standard Deviation 48.9 fL (36.4-46.3); Red Blood Count 3.85 M/uL (4.2-5.4); White Blood Count 8.77 K/uL (4.8-10.8)
[2021-09-13] MEDS ORDERED: SODIUM CHLORIDE 0.9% 1000ML 1,000 ML IV ONE (07:40)
[2021-09-13 07:41] LABS: BUN Creatinine Ratio 19.5 (10-20); Calcium 8.6 mg/dl (8.5-10.1); Creatinine Clr Calc Pharmacy 91.6 ml/min; Est GFR (African American) 95.1 ml/min; Est GFR (Non-African American) 82.1 ml/min; Potassium 3.9 mmol/L (3.5-5.1)
[2021-09-13] MEDS: ESCITALOPRAM OXALATE 10 MG TAB PO SCH (08:49)
[2021-09-13] MEDS: ENOXAPARIN INJ 40 MG/0.4 ML SYR SQ SCH (08:49)
[2021-09-13] MEDS: cefTRIAXone SODIUM 2,000 MG in DEXTROSE 5% 50 ML IV SCH (09:34)
[2021-09-13] MEDS: NORMOSOL-R 1,000 ML IV SCH ×2 (10:12→22:04)
[2021-09-13] MEDS: DAPTOmycin 500 MG in SYRINGE 0 ML IV SCH (10:12)
--- NOTE | 2021-09-13 12:27 | Hospitalist Progress Note ---
Date of Service September 13, 2021 Assessment & Plan (1) Septicemia: Plan: 11/26 admission blood cx's + for GPC in chains add daptomycin in the event this is enterococcus change ancef to rocephin repeat blood cx's now echo - r/o SBE (loud murmur on exam) additional IV fluid bolus (NS 1 L x 1) followed by normosol at 125cc/hr. (2) Cellulitis: Plan: RLE. change ancef to rocephin. add dapto as mentioned in #[address] right foot due to pain (and fairly unremarkable dorsum of foot) -- r/o abscess, hardware issues, etc. mid-foot gout?? once CT is back consider NSAIDs. clinically no signs/symptoms of septic arthritis of R ankle. (3) Right foot pain: Plan: 2nd to swelling from cellulitis? mid-foot gout? abscess of foot? other? CT R foot ordered. Consider NSAIDs for pain. (4) Renal mass: Plan: Incidental finding on CT scan 2.3cm R-sided renal mass worrisome for ca will inform patient of this (5) Tremor: Plan: 2nd PD (6) Vitamin B12 deficiency: Plan: Hb 11.5 (7) H/O gastric bypass: Plan: noted caution with NSAIDs if used (a couple of doses then d/c) (8) Fever: Plan: Patient had a temp while in the ER. will closely monitor vitals. secondary to problem 1 (9) Systolic murmur: Plan: echo to assess valve function and rule out vegetations in light of #1 (10) Parkinson disease: Plan: DVT proph - lovenox Admission and Anticipated Discharge Date Admission Date: September 12, 2021 Subjective patient states she continues with mild soreness of the RLE but particularly the right foot the right foot pain started about 1 week ago BEFORE the distal right johnson became erythematous and swollen of note - records show she had R GSV ablation on 08/08/[address] Wray has never had gout hurts to bear weight on the right foot because of pain she can flex the right ankle without pain denies right knee pain still feeling "warm" this am appetite ok pt states she is aware of a heart murmur - has had "for years" Review of Systems Review of Systems: gen - fever, sweats/chills pulm - no cough or congestion or dyspnea cv - no orthopnea Gi - no N/V/abd pain Physical Exam Physical Exam: gen - NAD, obese, a/o x 3 mouth - MMM neck - no JVD heart - 2-3/6 DAINE LSB, RRR, s1 s2 lungs - CTA b/l abd - soft, NT, ND, BS+, no HSM ext - 1+ edema right johnson/ankle/foot; <1+ edema left leg; pulses 2+ b/l skin - mild erythema extending from mid-calf region/tib-fib down to the achilles area; no fluctuance or crepitus musculo - I can passively dorsiflex/plantarflex the R ankle without any pain; right foot dorsum - NO REDNESS OR abnormalities but very tender with minimal palpation Results & Data Results & Data ([facility]) Vital Signs (Past 12 Hours) Vital Signs Temp Pulse Pulse Resp BP Pulse Ox 09/13/21 08:21 50 L 09/13/21 07:11 36.8 C 45 L 16 97/59 L 95 09/13/21 02:08 36.7 C 71 16 115/74 98 Laboratory Results blood cx's -- 11/26 + for GPC in chains Diagnostic Findings doppler RLE findings noted - areas of superficial clot scattered in GSV but no DVT CXR clear CT a/p - 2.3cm mass right kidney, diverticular disease PG Care Time/CCT Total # of Minutes Spent Total Time Spent with Patient: Total time spent is greater than 50% in coordination of care (as documented) at patient's floor/unit and/or counseling patient: Coding Level of Care Code 25092 Subseq Hosp Care Lvl 3 Diagnoses Cellulitis L03.90 Site of cellulitis: unspecified site Renal mass N28.89 Tremor R25.1 Vitamin B12 deficiency E53.8 H/O gastric bypass Z98.84 Fever R50.9 Fever type: unspecified Systolic murmur R01.1 Parkinson disease G20 Septicemia A41.9 Right foot pain M79.671 (1) Fever Fever type: unspecified Qualified Code(s): R50.9 - Fever, unspecified (2) Cellulitis Site of cellulitis: unspecified site Qualified Code(s): L03.90 - Cellulitis, unspecified
[2021-09-13 13:26] LABS: C Reactive Protein 14.2 mg/dl (0-0.29); Uric Acid 4.4 mg/dl (2.6-7.2)
[2021-09-13] MEDS ORDERED: ceFAZolin 2000MG 2,000 MG/15 ML SYR IV SCH (14:00)
--- NOTE | 2021-09-13 15:04 | Electrocardiogram Report ---
Test Reason : Blood Pressure : / mmHG Vent. Rate : 057 BPM Atrial Rate : 057 BPM P-R Int : 154 ms QRS Dur : 100 ms QT Int : 468 ms P-R-T Axes : 053 015 036 degrees QTc Int : 455 ms Sinus bradycardia Nonspecific T wave abnormality Abnormal ECG When compared with ECG of 12-SEP-2021 14:10, Premature atrial complexes are no longer Present Vent. rate has decreased BY 30 BPM Nonspecific T wave abnormality now evident in Inferior leads Nonspecific T wave abnormality now evident in Lateral leads Confirmed by Klaus Lozada ([id number]) on 09/13/2021 3:03:45 PM Referred By: REFERRED SELF Confirmed By:Klaus Lozada
--- NOTE | 2021-09-13 15:22 | CT Scan Report ---
CT foot RT wo con CLINICAL HISTORY: severe mid-foot pain; eval abscess, hardware, etc TECHNIQUE: Multidetector row helical CT of the right foot was performed without intravenous contrast. Coronal and sagittal reformations were obtained. Automated dose lowering techniques and/or adjustmen t according to patient size were utilized for this examination. Comparison: None available at the time of this dictation. FINDINGS: The osseous structures are without fracture or dislocation. Patient is status post plate and screw fi xation of the first digit proximal phalanx and first metatarsal. Pes planus deformity is seen. Soft t issue swelling is seen most prominent in the dorsum of the foot. No evidence of drainable fluid colle ction. No evidence of focal bony erosions to suggest osteomyelitis. IMPRESSION: Degenerative changes and pes planus deformity. No evidence of drainable fluid collection. Soft tissue swelling and skin thickening is seen most prominent in the dorsum of the foot. ACT 112: Negative or not required by law. Electronically signed by: Patrick Vargas M.D. 09/13/2021 3:20 PM
[2021-09-13] MEDS ORDERED: KETOROLAC 30 MG/ML VIAL IV SCH (15:34)
[2021-09-13] MEDS ORDERED: KETOROLAC 30 MG/ML VIAL IV ONE (15:34)
--- NOTE | 2021-09-13 16:33 | XCELERA ---
[id number]
[2021-09-13] MEDS: ASCORBIC ACID 500 MG TAB PO SCH (20:24)
[2021-09-13] MEDS: CYANOCOBALAMIN 500 MCG TABLET (VITAMIN B-12) PO SCH (20:25)
[2021-09-13] MEDS: MULTIVITAMIN TAB PO SCH (20:25)
[2021-09-13] MEDS: CHOLECALCIFEROL 1,000 UNITS 25 MCG TAB PO SCH (20:25)
[2021-09-14] MEDS: NORMOSOL-R 1,000 ML IV SCH ×3 (05:57→19:22)
[2021-09-14] MEDS: DAPTOmycin 500 MG in SYRINGE 0 ML IV SCH (08:29)
[2021-09-14] MEDS: ENOXAPARIN INJ 40 MG/0.4 ML SYR SQ SCH (08:30)
[2021-09-14] MEDS: ESCITALOPRAM OXALATE 10 MG TAB PO SCH (08:30)
[2021-09-14] MEDS ORDERED: KETOROLAC 30 MG/ML VIAL IV ONE (09:19)
[2021-09-14] MEDS: cefTRIAXone SODIUM 2,000 MG in DEXTROSE 5% 50 ML IV SCH (09:47)
[2021-09-14 09:58] LABS: BUN Creatinine Ratio 20.6 (10-20); Calcium 8.7 mg/dl (8.5-10.1); Creatinine Clr Calc Pharmacy 92.8 ml/min; Est GFR (African American) 96.6 ml/min; Est GFR (Non-African American) 83.3 ml/min; Potassium 3.7 mmol/L (3.5-5.1)
[2021-09-14] MEDS: PANTOprazole 40 MG TAB PO SCH (10:43)
--- NOTE | 2021-09-14 16:28 | Hospitalist Progress Note ---
Date of Service September 14, 2021 Assessment & Plan (1) Septicemia: Plan: resolving. 11/26 admission blood cx's positive for strep pneumoniae. source - presumed to be RLE cellulitis. very unusual pathogen to cause cellulitis but literature suggests it is a "rare" cause. I have no other source on exam for her septicemia. d/c dapto. cont rocephin. repeat blood cx's are thus far negative. echo - no vegetations; uncertain what is causing the murmur (outflow tract murmu r??) [facility] ID consult on Thursday (2) Cellulitis: Plan: RLE. MUCH IMPROVED. presumably due to strep pneumoniae as this grew out in blood cx's (1 out of 4) at admission. "rare" cause of cellulitis per what I could find in the literature. could her right GSV ablation in Jul 2021 have set her up for this ?? cont rocephin d/c dapto CT right foot without issues with hardware, abscess, etc clinically no signs/symptoms of septic arthritis of R ankle. (3) Right foot pain: Plan: 2nd to swelling from cellulitis? doubt, as the right mid-foot never had cellulitis/erythema (it was mildly warm the first day I saw her, but this has resolved). mid-foot gout? CT R foot w/ swelling only. Pain is improved s/p NSAIDs yesterday. Cont nsaids - 3 doses of motrin ordered for today/tonight/am. again will Rx for presumed gout. no CPPD crystals on any imaging study. reassess am. (4) Renal mass: Plan: Incidental finding on CT scan 2.3cm R-sided renal mass worrisome for ca pt and daughter were told about this in the ER urology referral post-d/c (5) Tremor: Plan: 2nd PD (6) Vitamin B12 deficiency: Plan: Hb 11.5 (7) H/O gastric bypass: Plan: noted caution with NSAIDs PPI (8) Systolic murmur: Plan: echo did not show valvular dysfunction or vegetations ?outflow tract murmur?? 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 GBS) Review of Systems Review of Systems: gen - no fevers/chills; fatigue slowly improving CV - no cp GI - no abd pain Pulm - no cough or congestion ENT - no ear pain or facial pain Physical Exam Physical Exam: gen - NAD, obese, a/o x 3, looks good today mouth - MMM neck - no JVD heart - 2/6 DIANE LSB, RRR, s1 s2 lungs - CTA b/l abd - soft, NT, ND, BS+, no HSM ext - trace edema right johnson/ankle/foot; <1+ edema left leg; pulses 2+ b/l skin - mild erythema extending from mid-calf region/tib-fib down to the achilles area MUCH improved; erythema is now pink in color; warmth improve; the achilles redness is resolved; no fluctuance or crepitus tinea pedis R foot musculo - I can passively dorsiflex/plantarflex the R ankle without any pain once again; right foot dorsum - NO REDNESS OR abnormalities; tenderness improved to palpation Results & Data Results & Data ([facility]) Vital Signs (Past 12 Hours) Vital Signs Temp Pulse Resp BP BP Pulse Ox 09/14/21 15:48 36.7 C 55 L 18 172/83 H 96 09/14/21 06:17 36.7 C 53 L 16 146/88 H 97 Laboratory Results Laboratory Results - last 24 hr 09/14/21 08:52 Sodium 140 Potassium 3.7 Chloride 108 H Carbon Dioxide 30 Anion Gap 2.0 L BUN 16 Creatinine 0.77 Est Cr Clr Drug Dosing 92.8 Est GFR ( Amer) 96.6 Est GFR (Non-Af Amer) 83.3 BUN/Creatinine Ratio 20.6 H Glucose 99 Calcium 8.7 Diagnostic Findings blood cx - 1/4 from admit - strep pneumonaie PG Care Time/CCT Total # of Minutes Spent Total Time Spent with Patient: Total time spent is greater than 50% in coordination of care (as documented) at patient's floor/unit and/or counseling patient: Coding Level of Care Code 02393 Subseq Hosp Care Lvl 3 Diagnoses Septicemia A41.9 Cellulitis L03.90 Site of cellulitis: unspecified site Right foot pain M79.671 Renal mass N28.89 Tremor R25.1 Vitamin B12 deficiency E53.8 H/O gastric bypass Z98.84 Systolic murmur R01.1 Parkinson disease G20 Tinea pedis B35.3 (1) Cellulitis Site of cellulitis: unspecified site Qualified Code(s): L03.90 - Cellulitis, unspecified
[2021-09-14] MEDS: KETOCONAZOLE 2% CR 15 GM TUBE EXT SCH ×2 (17:22→20:57)
[2021-09-14] MEDS: IBUPROFEN 600 MG TAB PO SCH (17:22)
[2021-09-14] MEDS: SUCRALFATE 1 GM/10 ML UDC PO SCH ×2 (17:23→20:57)
[2021-09-14] MEDS: ADVANCED PROBIOTIC 1250 MG CAPSULE PO SCH (17:23)
[2021-09-14] MEDS: MULTIVITAMIN TAB PO SCH (20:56)
[2021-09-14] MEDS: CYANOCOBALAMIN 500 MCG TABLET (VITAMIN B-12) PO SCH ×2 (20:56→21:43)
[2021-09-14] MEDS: ASCORBIC ACID 500 MG TAB PO SCH (20:56)
[2021-09-14] MEDS: CHOLECALCIFEROL 1,000 UNITS 25 MCG TAB PO SCH (20:56)
[2021-09-14] MEDS: ACETAMINOPHEN 500 MG TAB PO PRN (21:18)
[2021-09-14] MEDS: MELATONIN 3 MG TAB PO PRN (21:43)
[2021-09-15] MEDS: IBUPROFEN 600 MG TAB PO SCH ×2 (00:21→08:07)
[2021-09-15 07:57] LABS: Hematocrit (blood only) 36.3 % (37-47); Hemoglobin 11.7 g/dL (12.0-16.0); Mean Corpuscular Hemoglobin 29.9 pg (25-34); Mean Corpuscular Hgb Conc 32.2 g/dL (32-36); Mean Corpuscular Volume 92.8 fL (80-100); Platelet Count 184 K/uL (130-400); RDW Coefficient of Variation 14.3 % (11.5-14.5); RDW Standard Deviation 48.7 fL (36.4-46.3); Red Blood Count 3.91 M/uL (4.2-5.4); White Blood Count 3.62 K/uL (4.8-10.8)
[2021-09-15] MEDS: SUCRALFATE 1 GM/10 ML UDC PO SCH ×4 (08:07→20:57)
[2021-09-15] MEDS: ENOXAPARIN INJ 40 MG/0.4 ML SYR SQ SCH (08:07)
[2021-09-15] MEDS: ADVANCED PROBIOTIC 1250 MG CAPSULE PO SCH (08:07)
[2021-09-15] MEDS: ESCITALOPRAM OXALATE 10 MG TAB PO SCH (08:07)
[2021-09-15] MEDS: PANTOprazole 40 MG TAB PO SCH (08:07)
[2021-09-15] MEDS: KETOCONAZOLE 2% CR 15 GM TUBE EXT SCH ×2 (08:07→20:58)
[2021-09-15] MEDS: cefTRIAXone SODIUM 2,000 MG in DEXTROSE 5% 50 ML IV SCH (08:08)
[2021-09-15 08:56] LABS: Creatinine Clr Calc Pharmacy 119.1 ml/min; Est GFR (Non-African American) 98.4 ml/min
[2021-09-15 09:51] LABS: Folate (Folic Acid) 11.9 ng/ml (>5.38)
--- NOTE | 2021-09-15 19:13 | Hospitalist Progress Note ---
Date of Service September 15, 2021 Assessment & Plan (1) Septicemia: Plan: resolved. 11/26 admission blood cx's positive for strep pneumoniae. source - presumed to be RLE cellulitis. very unusual pathogen to cause cellulitis but literature suggests it is a "rare" cause. I have no other source on exam for her septicemia. cont rocephin. day #3 of such. repeat blood cx's are thus far negative. echo - no vegetations; uncertain what is causing the murmur (outflow tract murmur??) [facility] ID consult on Thursday could her recent (07/2021) greater saphenous vein ablation set her up for this cellulitis?? (2) Cellulitis: Plan: RLE. MUCH IMPROVED. presumably due to strep pneumoniae as this grew out in blood cx's (1 out of 4) at admission. "rare" cause of cellulitis per what I could find in the literature. could her right GSV ablation in Jul 2021 have set her up for this ?? cont rocephin CT right foot without issues with hardware, abscess, etc clinically no signs/symptoms of septic arthritis of R ankle. I do not believe the right mid-foot pain was related to her cellulitis. (3) Right foot pain: Plan: 2nd to swelling from cellulitis? doubt, as the right mid-foot never had cellulitis/erythema (it was mildly warm the first day I saw her, but this has resolved). mid-foot gout? CT R foot w/ swelling only. Pain improved s/p NSAIDs. Has gastric sleeve - I am nervous to cont NSAIDs - will use prednisone x 2 doses then stop all Rx. PPI to protect gastric sleeve. reassess am. 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 will she need APPLE due to +blood cultures? (9) Parkinson disease: Plan: no issues PT, OT (10) Tinea pedis: Plan: right foot ketoconazole cream BID likely to need several weeks of Rx (11) Abnormal ultrasound of lower extremity: Plan: RLE doppler at admission with multiple areas of superficial thrombosis in greater saphenous vein on RIGHT patient had ablation procedure on 08/07/[address] Wray of this vein I spoke with radiology - the thromboses seen in the GSV are small, and likely mo st c/w the ablation procedure itself no Rx needed (12) Lymphadenopathy, inguinal: Plan: b/l on recent CT the right inguinal LAD could be explained by her RLE cellulitis +/- recent ablation? the left inguinal LAD - due to ablation? additionally she has retroperitoneal LAD -- this is concerning if she indeed has renal cell ca -- are these lymph nodes involved?? needs UROLOGY follow-up val[place] post-discharge I discussed this issue with pt/daughter today Plan: DVT proph - lovenox updated pt's daughter extensively at bedside today await ID consult on Thursday Admission and Anticipated Discharge Date Admission Date: September 12, 2021 Subjective pt sitting in chair during the visit daughter was present during the encounter she feels better appetite improved energy improved but "not 100% yet" right foot pain better able to weight-bear - not fully resolved, but pain much better pt and daughter with multiple questions about recent CT scans Review of Systems Review of Systems: gen - no fevers, no chills pulm - no cough or dyspnea CV - no chest pain GI - no N/V/abd pain musculo - right foot pain improved Physical Exam Physical Exam: gen - NAD, obese, a/o x 3, looks great, sitting in chair mouth - MMM neck - no JVD heart - 2/6 DIANE LSB, RRR, s1 s2 lungs - CTA b/l abd - soft, NT, ND, BS+, no HSM, in abdominal wall there are 1 or 2 small nodules/lumps - due to prior lovenox injections? freely movable ext - trace edema right johnson/ankle/foot; trace edema left leg; pulses 2+ b/l skin - tinea pedis R foot; mild pink skin over distal R johnson with some extension to medial R calf; erythema that previously traveled down to the achilles region is resolved; there is minimal warmth over the areas of pink skin musculo - active ROM of R ankle without any pain once again; right foot dorsum - NO REDNESS, WARMTH, OR TENDERNESS Today; surgical scars over R great toe Results & Data Results & Data ([facility]) Vital Signs (Past 12 Hours) Vital Signs Temp Pulse Resp BP Pulse Ox 09/15/21 15:00 36.6 C 60 20 145/89 H 98 Laboratory Results Laboratory Results - last 24 hr 09/15/21 09/15/21 09/15/21 07:26 07:26 07:26 WBC 3.62 L RBC 3.91 L Hgb 11.7 L Hct 36.3 L MCV 92.8 MCH 29.9 MCHC 32.2 RDW Std Deviation 48.7 H RDW Coeff of Ashlie 14.3 Plt Count 184 MPV 10.0 Creatinine 0.60 Est Cr Clr Drug Dosing 119.1 Est GFR ( Amer) 114.0 Est GFR (Non-Af Amer) 98.4 Vitamin B12 531 Folate 11.90 PG Care Time/CCT Total # of Minutes Spent Total Time Spent with Patient: Total time spent is greater than 50% in coordination of care (as documented) at patient's floor/unit and/or counseling patient: Coding Level of Care Code 46385 Subseq Hosp Care Lvl 3 Diagnoses Septicemia A41.9 Cellulitis L03.90 Site of cellulitis: unspecified site Right foot pain M79.671 Renal mass N28.89 Tremor R25.1 Vitamin B12 deficiency E53.8 H/O gastric bypass Z98.84 Systolic murmur R01.1 Parkinson disease G20 Tinea pedis B35.3 Abnormal ultrasound of lower extremity R93.6 Lymphadenopathy, inguinal R59.0 (1) Cellulitis Site of cellulitis: unspecified site Qualified Code(s): L03.90 - Cellulitis, unspecified
[2021-09-15] MEDS ORDERED: predniSONE 10 MG TABLET PO STA (19:14)
[2021-09-15] MEDS: ACETAMINOPHEN 500 MG TAB PO PRN (19:34)
[2021-09-15] MEDS: CHOLECALCIFEROL 1,000 UNITS 25 MCG TAB PO SCH (20:57)
[2021-09-15] MEDS: CYANOCOBALAMIN 500 MCG TABLET (VITAMIN B-12) PO SCH (20:57)
[2021-09-15] MEDS: ASCORBIC ACID 500 MG TAB PO SCH (20:57)
[2021-09-15] MEDS: MULTIVITAMIN TAB PO SCH (20:58)
[2021-09-15] MEDS: MELATONIN 3 MG TAB PO PRN (20:58)
[2021-09-16 08:00] LABS: Basophils # (auto) 0.02 K/uL (0-0.2); Basophils % (auto) 0.4 %; Eosinophils % (auto) 2.2 %; Hematocrit (blood only) 35.8 % (37-47); Hemoglobin 11.8 g/dL (12.0-16.0); Immature Granulocytes # (auto) 0.01 K/uL (0.00-0.02); Immature Granulocytes % (auto) 0.2 %; Lymphocytes # (auto) 1.33 K/uL (1.2-3.4); Lymphocytes % (auto) 28.7 %; Mean Corpuscular Volume 91.1 fL (80-100); Mean Platelet Volume 10.3 fL (7.4-10.4); Monocytes # (auto) 0.32 K/uL (0.11-0.59); Monocytes % (auto) 6.9 %; Neutrophils # (auto) 2.85 K/uL (1.4-6.5); Neutrophils % (auto) 61.6 %; Platelet Count 216 K/uL (130-400); RDW Coefficient of Variation 13.8 % (11.5-14.5); RDW Standard Deviation 46.4 fL (36.4-46.3); Red Blood Count 3.93 M/uL (4.2-5.4); White Blood Count 4.63 K/uL (4.8-10.8)
[2021-09-16 08:34] LABS: BUN Creatinine Ratio 23.9 (10-20); Creatinine Clr Calc Pharmacy 121.1 ml/min; Est GFR (African American) 114.7 ml/min; Est GFR (Non-African American) 98.9 ml/min
[2021-09-16] MEDS: cefTRIAXone SODIUM 2,000 MG in DEXTROSE 5% 50 ML IV SCH (08:43)
[2021-09-16] MEDS: ESCITALOPRAM OXALATE 10 MG TAB PO SCH (08:44)
[2021-09-16] MEDS: PANTOprazole 40 MG TAB PO SCH (08:44)
[2021-09-16] MEDS: ADVANCED PROBIOTIC 1250 MG CAPSULE PO SCH (08:44)
[2021-09-16] MEDS: ENOXAPARIN INJ 40 MG/0.4 ML SYR SQ SCH (08:45)
[2021-09-16] MEDS: KETOCONAZOLE 2% CR 15 GM TUBE EXT SCH ×2 (08:45→19:28)
[2021-09-16] MEDS: SUCRALFATE 1 GM/10 ML UDC PO SCH ×4 (08:45→19:23)
[2021-09-16] MEDS ORDERED: predniSONE 10 MG TABLET PO ONE (09:00)
[2021-09-16] MEDS: ACETAMINOPHEN 500 MG TAB PO PRN (09:55)
--- NOTE | 2021-09-16 12:46 | Hospitalist Progress Note ---
Date of Service September 16, 2021 Assessment & Plan (1) Septicemia: Plan: - RESOLVED -- Did have a greater saphenous vein ablation in July 2021 - contributing? - 1 of 4 BCx with streptococcus pneumoniae (source is presumed to be RLE cellulitis) - Last BCx from 09/13 with NGTD; Echo without vegetations - [facility] ID consultation placed -- Continue Rocephin while hospitalized then convert to Augmentin to continue until F/U with outpatient ID Dr. Wheeler -- Consider immune workup as outpatient (2) Cellulitis: Plan: - RLE - RESOLVING - CT - degenerative changes and pes planus deformity, no fluid collection, soft tissue swelling and skin thickening in dorsum of the foot - Abx as discussed above (3) Right foot pain: Plan: - Possibly from swelling vs gout? - Seems to be improving with NSAIDs - H/O gastric sleeve - given Prednisone 10 mg x 2 dose - may benefit from an additional dose tomorrow then stop (4) Renal mass: Plan: - Incidental - 2.3 cm R sided renal mass - RCC is diagnosis of exclusion - Will need Urology F/U as outpatient (5) Tinea pedis: Plan: - Right foot - Continue Ketoconazole BID - will likely need few weeks treatment (6) Abnormal ultrasound of lower extremity: Plan: RLE doppler on admission - multiple areas of superficial thrombosis in greater saphenous vein on R - is S/P ablation in July -- Thrombosis is small and likely consistent with ablation procedure - No treatment required at this time (7) Systolic murmur: Plan: - Echo without valvular dysfunction or vegetations - outflow tract murmur? - Could consider APPLE? (8) Tremor: Plan: - STABLE - due to Parkinsons (9) Vitamin B12 deficiency: Plan: - STABLE; continue supplementation (10) H/O gastric bypass: Plan: - NOTED (11) Parkinson disease: Plan: - STABLE; not maintained on medication for this (12) Lymphadenopathy, inguinal: Plan: - Bilateral on CT and with retroperitoneal -- Possibly related to cellulitis/ablation - Urology follow-up as discussed above given renal mass Plan: DVT proph - Lovenox - Will update patient's daughter later today Admission and Anticipated Discharge Date Admission Date: September 12, 2021 Subjective Reports the redness of the RLE is much improved. Still having some foot pain but feels the steroids are assisting. Tolerating diet without issue. Verbalizes no other complaints Review of Systems Review of Systems: REVIEW OF SYSTEMS General/Constitutional: Denies fever/chills Cardiovascular: Denies chest pain, palpitations, edema Respiratory: Denies cough, sputum, SOB GI: Denies nausea, vomiting, abdominal pain, constipation, diarrhea : Denies dysuria Musculoskeletal: + R foot pain Neurologic: Denies dizziness/lightheadedness Physical Exam Physical Exam: PHYSICAL EXAM General Appearance: WDWN in NAD who is A&O x 3 HEENT: Head is normocephalic/atraumatic; Hearing grossly intact; Mucous membranes moist Neck: Supple; Trachea midline; Neg JVD; Neg lymphadenopathy Heart: RRR with +murmur Lungs: CTA in all lung sinha bilaterally; Respirations unlabored; Neg accessory muscle use Abdomen: Soft, non-tender, non-distended; Positive BS x 4 quadrants Extremities: Neg cyanosis; trace edema R ankle Neurological: Speech clear; Gross motor/sensory function intact; Neg focal neurologic deficits Psychiatric: Appropriate mood/affect Skin: Dry/cracked skin around R toes consistent with tinea pedis; no warmth to touch; mild pink coloration of R ankle Results & Data Results & Data ([facility]) Vital Signs (Past 12 Hours) Vital Signs Temp Pulse Resp BP Pulse Ox 09/16/21 07:40 36.5 C 53 L 18 160/83 H 95 PG Care Time/CCT Total # of Minutes Spent Total Time Spent with Patient: Total time spent is greater than 50% in coordination of care (as documented) at patient's floor/unit and/or counseling patient: Coding Level of Care Code 86816 Subseq Hosp Care Lvl 3 Diagnoses Septicemia A41.9 Cellulitis L03.90 Site of cellulitis: unspecified site Right foot pain M79.671 Renal mass N28.89 Tremor R25.1 Vitamin B12 deficiency E53.8 H/O gastric bypass Z98.84 Systolic murmur R01.1 Parkinson disease G20 Tinea pedis B35.3 Abnormal ultrasound of lower extremity R93.6 Lymphadenopathy, inguinal R59.0 (1) Cellulitis Site of cellulitis: unspecified site Qualified Code(s): L03.90 - Cellulitis, unspecified
[2021-09-16] MEDS: CHOLECALCIFEROL 1,000 UNITS 25 MCG TAB PO SCH (19:27)
[2021-09-16] MEDS: ASCORBIC ACID 500 MG TAB PO SCH (19:27)
[2021-09-16] MEDS: MULTIVITAMIN TAB PO SCH (19:28)
[2021-09-16] MEDS: CYANOCOBALAMIN 500 MCG TABLET (VITAMIN B-12) PO SCH (19:28)
[2021-09-17] MEDS: ACETAMINOPHEN 500 MG TAB PO PRN ×2 (06:20→19:34)
[2021-09-17 06:34] LABS: Hemoglobin 11.7 g/dL (12.0-16.0); Mean Corpuscular Hemoglobin 29.8 pg (25-34); Mean Corpuscular Hgb Conc 32.5 g/dL (32-36); Mean Corpuscular Volume 91.8 fL (80-100); Mean Platelet Volume 9.8 fL (7.4-10.4); Platelet Count 232 K/uL (130-400); RDW Coefficient of Variation 13.8 % (11.5-14.5); Red Blood Count 3.92 M/uL (4.2-5.4); White Blood Count 5.05 K/uL (4.8-10.8)
[2021-09-17 07:15] LABS: BUN Creatinine Ratio 22.4 (10-20); C Reactive Protein 1.56 mg/dl (0-0.29); Calcium 9.2 mg/dl (8.5-10.1); Creatinine Clr Calc Pharmacy 115.2 ml/min; Est GFR (African American) 112.8 ml/min; Est GFR (Non-African American) 97.3 ml/min; Potassium 3.7 mmol/L (3.5-5.1)
[2021-09-17] MEDS: cefTRIAXone SODIUM 2,000 MG in DEXTROSE 5% 50 ML IV SCH (09:45)
[2021-09-17] MEDS: ESCITALOPRAM OXALATE 10 MG TAB PO SCH (09:46)
[2021-09-17] MEDS: ADVANCED PROBIOTIC 1250 MG CAPSULE PO SCH (09:46)
[2021-09-17] MEDS: ENOXAPARIN INJ 40 MG/0.4 ML SYR SQ SCH (09:46)
[2021-09-17] MEDS: KETOCONAZOLE 2% CR 15 GM TUBE EXT SCH ×2 (09:47→21:24)
[2021-09-17] MEDS: PANTOprazole 40 MG TAB PO SCH (09:47)
[2021-09-17] MEDS: SUCRALFATE 1 GM/10 ML UDC PO SCH ×4 (09:47→21:25)
--- NOTE | 2021-09-17 10:21 | XRay Report ---
XR knee LT 3V CLINICAL HISTORY: Knee Pain - Effusion? COMPARISON: Leg length study April 02, 2021. FINDINGS: Alignment of the total left knee arthroplasty is anatomic. There is no periprosthetic frac ture or lucency. No joint effusion is evident. IMPRESSION: 1. Status post total left knee arthroplasty. No periprosthetic fracture. 2. No joint effusion. ACT 112: Negative or not required by law. Electronically signed by: Sahil Tineo M.D. 09/17/2021 10:20 AM
--- NOTE | 2021-09-17 11:52 | Hospitalist Progress Note ---
Date of Service September 17, 2021 Assessment & Plan (1) Septicemia: Plan: - RESOLVED -- Did have a greater saphenous vein ablation in July 2021 - contributing? - 1 of 4 BCx with streptococcus pneumoniae (source is presumed to be RLE cellulitis) - Last BCx from 09/13 with NGTD; Echo without vegetations - [facility] ID consultation placed -- Continue Rocephin while hospitalized then convert to Augmentin to continue until F/U with outpatient ID Dr. Wheeler -- Consider immune workup as outpatient - Will need Diflucan if needed for yeast infection while on Augmentin. Has F/U scheduled with Dr. Wheeler on 09/24 (2) Cellulitis: Plan: - RLE - RESOLVED - CT - degenerative changes and pes planus deformity, no fluid collection, soft tissue swelling and skin thickening in dorsum of the foot - Abx as discussed above (3) Right foot pain: Plan: - Possibly from swelling vs gout vs arthritic flair? - Seems to be improving with NSAIDs - H/O gastric sleeve - will given additional dose of Prednisone x 2 given good response (4) Renal mass: Plan: - Incidental - 2.3 cm R sided renal mass - RCC is diagnosis of exclusion - Will need Urology F/U as outpatient (5) Tinea pedis: Plan: - Right foot - Continue Ketoconazole BID - will likely need few weeks treatment (6) Abnormal ultrasound of lower extremity: Plan: RLE doppler on admission - multiple areas of superficial thrombosis in greater saphenous vein on R - is S/P ablation in July -- Thrombosis is small and likely consistent with ablation procedure - No treatment required at this time (7) Systolic murmur: Plan: - Echo without valvular dysfunction or vegetations - outflow tract murmur? (8) Tremor: Plan: - STABLE - due to Parkinsons (9) Vitamin B12 deficiency: Plan: - STABLE; continue supplementation (10) H/O gastric bypass: Plan: - NOTED (11) Parkinson disease: Plan: - STABLE; not maintained on medication for this (12) Lymphadenopathy, inguinal: Plan: - Bilateral on CT and with retroperitoneal -- Possibly related to cellulitis/ablation - Urology follow-up as discussed above given renal mass Plan: DVT proph - Lovenox - Will continue another day of IV Abx; will convert to Augmentin on D/C - Has F/U with Dr. Wheeler already arranged (Nov ) - Will need F/U with Urology (can assist to arrange with [facility]) Admission and Anticipated Discharge Date Admission Date: September 12, 2021 Subjective Reports feeling well today. Some mild foot pain but resolves with Tylenol. Knee stiffness is improving and Xray with no effusion. She is tolerating her diet and verbalizes no complaints. Review of Systems Review of Systems: REVIEW OF SYSTEMS General/Constitutional: Denies fever/chills Cardiovascular: Denies chest pain, palpitations, edema Respiratory: Denies cough, sputum, SOB GI: Denies nausea, vomiting, abdominal pain, constipation, diarrhea : Denies dysuria Musculoskeletal: + R foot pain (improving); mild L knee stiffness (improving) Neurologic: Denies dizziness/lightheadedness Physical Exam Physical Exam: PHYSICAL EXAM General Appearance: WDWN in NAD who is A&O x 3 HEENT: Head is normocephalic/atraumatic; Hearing grossly intact; Mucous membranes moist Neck: Supple; Trachea midline; Neg JVD; Neg lymphadenopathy Heart: RRR with +murmur Lungs: CTA in all lung sinha bilaterally; Respirations unlabored; Neg accessory muscle use Abdomen: Soft, non-tender, non-distended; Positive BS x 4 quadrants Extremities: Neg cyanosis; trace edema R ankle Neurological: Speech clear; Gross motor/sensory function intact; Neg focal neurologic deficits Psychiatric: Appropriate mood/affect Skin: Dry/cracked skin around R toes consistent with tinea pedis; no warmth to touch; no erythema of the ankle/leg; some slight darkening of the johnson skin and slightly toughened skin Results & Data Results & Data ([facility]) Vital Signs (Past 12 Hours) Vital Signs Temp Pulse Resp BP Pulse Ox 09/17/21 07:13 36.5 C 48 L 16 127/70 95 PG Care Time/CCT Total # of Minutes Spent Total Time Spent with Patient: Total time spent is greater than 50% in coordination of care (as documented) at patient's floor/unit and/or counseling patient: Coding Level of Care Code 52979 Subseq Hosp Care Lvl 2 Diagnoses Septicemia A41.9 Cellulitis L03.90 Site of cellulitis: unspecified site Right foot pain M79.671 Renal mass N28.89 Tinea pedis B35.3 Abnormal ultrasound of lower extremity R93.6 Systolic murmur R01.1 Tremor R25.1 Vitamin B12 deficiency E53.8 H/O gastric bypass Z98.84 Parkinson disease G20 Lymphadenopathy, inguinal R59.0 (1) Cellulitis Site of cellulitis: unspecified site Qualified Code(s): L03.90 - Cellulitis, unspecified
[2021-09-17] MEDS: predniSONE 10 MG TABLET PO SCH (12:38)
[2021-09-17] MEDS: ASCORBIC ACID 500 MG TAB PO SCH (21:24)
[2021-09-17] MEDS: CHOLECALCIFEROL 1,000 UNITS 25 MCG TAB PO SCH (21:24)
[2021-09-17] MEDS: CYANOCOBALAMIN 500 MCG TABLET (VITAMIN B-12) PO SCH (21:24)
[2021-09-17] MEDS: MULTIVITAMIN TAB PO SCH (21:25)
[2021-09-17] MEDS: MELATONIN 3 MG TAB PO PRN (21:39)
[2021-09-18] MEDS: ADVANCED PROBIOTIC 1250 MG CAPSULE PO SCH (07:48)
[2021-09-18] MEDS: ESCITALOPRAM OXALATE 10 MG TAB PO SCH (07:48)
[2021-09-18] MEDS: SUCRALFATE 1 GM/10 ML UDC PO SCH (07:48)
[2021-09-18] MEDS: KETOCONAZOLE 2% CR 15 GM TUBE EXT SCH (07:48)
[2021-09-18] MEDS: PANTOprazole 40 MG TAB PO SCH (07:48)
[2021-09-18] MEDS: predniSONE 10 MG TABLET PO SCH (07:48)
[2021-09-18] MEDS: ENOXAPARIN INJ 40 MG/0.4 ML SYR SQ SCH (07:49)
[2021-09-18] MEDS: ACETAMINOPHEN 500 MG TAB PO PRN (07:51)
[2021-09-18] MEDS: cefTRIAXone SODIUM 2,000 MG in DEXTROSE 5% 50 ML IV SCH (07:52)
--- NOTE | 2021-09-18 15:39 | Discharge Summary ---
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 Patient was then placed on chronic suppresion and treated with amoxicillin. Patient follows Dr. Wheeler. Since then patient has had recurrent episodes of right lower extremity cellulitis. Patient has been off antibiotics since January this year without any setbacks, until not. Patient comes in today with a 1 day history of fever, chills, rigors. Patient feels she has pain in her left foot and is unable to bear weight. She was seen by her dietary server who states she needed to come to the hospital as she appeared to be sick. Principal Diagnosis Septicemia with Right Lower Extremity Cellulitis Discharge Exam PHYSICAL EXAM General Appearance: WDWN in NAD who is A&O x 3 HEENT: Head is normocephalic/atraumatic; Hearing grossly intact; Mucous membranes moist Neck: Supple; Trachea midline; Neg JVD; Neg lymphadenopathy Heart: RRR with +murmur Lungs: CTA in all lung sinha bilaterally; Respirations unlabored; Neg accessory muscle use Abdomen: Soft, non-tender, non-distended; Positive BS x 4 quadrants Extremities: Neg cyanosis; trace edema R ankle and dorsum of foot but non- pitting Neurological: Speech clear; Gross motor/sensory function intact; Neg focal neurologic deficits Psychiatric: Appropriate mood/affect Skin: Dry/cracked skin around R toes consistent with tinea pedis predominantly impacting the R great toe and between the big toe and 2nd toe; also cracking is on plantar aspect of foot near the big toe; no warmth to touch; no erythema of the ankle/leg; some slight darkening of the johnson skin and slightly toughened skin Discharge Data Allergies Allergy/AdvReac Type Severity Reaction Status Date / Time coconut Allergy Severe HIVES Verified 09/12/21 16:35 Sulfa (Sulfonamide Allergy Unknown PT UNSURE Verified 09/12/21 16:35 Antibiotics) oxaprozin Allergy Unknown Verified 09/12/21 16:35 Consultations 09/12/21 16:07 ED Decision to Admit Stat 09/15/21 10:32 Consult Infectious Diseases Routine Ordered Studies Abdomen/Pelvis CT 09/12/21 14:07 CT SCAN OF THE ABDOMEN AND PELVIS WITH IV CONTRAST CLINICAL HISTORY: Vomiting. COMPARISON STUDY: No priors. TECHNIQUE: Following the IV administration of 96 cc of Optiray 320, CT scan of the abdomen and pelvis is performed from the lung bases to the proximal femora. Images are reviewed in the axial, sagittal, and coronal planes. IV contrast was administered without complication. A dose lowering technique was utilized adhering to the principles of ALARA. The examination is degraded by motion artifact. CT DOSE: 935.11 mGy.cm FINDINGS: Lung bases: The heart is normal in size and without pericardial effusion. There is elevation of the right hemidiaphragm and bibasilar atelectasis. No airspace consolidation or pleural effusion is identified. Liver: The contrast-enhanced liver is enlarged, measuring 22 cm in length. The liver demonstrates diffusely diminished attenuation consistent with hepatic steatosis. There is no intrahepatic biliary ductal dilatation. The hepatic veins and portal veins are patent. Gallbladder: Unremarkable. Spleen: Normal in size and attenuation. There are calcified splenic granulomas. Pancreas: Unremarkable. Adrenal glands: Unremarkable. Kidneys: No left kidney is identified. 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 Both renal moieties enhance homogeneously. A 3 mm nonobstructing calculus is seen in the right upper pole moiety. There is no hydronephrosis. A 2.3 cm soft tissue lesion arises from the right pelvic renal moiety seen on image #288. Abdominal vasculature: The abdominal aorta is normal in course and caliber noting mild to moderate atherosclerotic calcification. Stomach and bowel: Postoperative change is seen involving the stomach. There is moderate to advanced colonic diverticulosis without CT evidence of acute diverticulitis. No bowel obstruction is seen. Fecal retention is present throughout the colon. The appendix is well-visualized and normal. Peritoneum: There is no intraperitoneal free air or abdominal ascites. There is a ventral surgical scar with evidence of previous ventral hernia repair. Lymphadenopathy: There is bilateral inguinal lymphadenopathy, right greater than left. The largest node seen on image #460 and measures 3.4 x 2.1 cm. Prominent retroperitoneal iliac chain nodes measure up to 12 mm short axis (axial image #201. No upper abdominal or mesenteric adenopathy is seen. Pelvic viscera: The bladder, uterus, and adnexa are normal as visualized. Skeletal structures: The skeletal structures are osteopenic. There is mild to moderate lumbosacral spondylosis. No lytic or blastic lesions are seen. IMPRESSION: 1. There are no acute infectious or inflammatory findings in the abdomen or pelvis. 2. Postoperative change is noted in the stomach. No bowel obstruction is identified. 3. 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 4. A 2.3 cm soft tissue lesion arises from the lower pole of the right pelvic renal moiety. Renal cell carcinoma is the diagnosis of exclusion. Follow-up with urology is recommended. 5. A nonobstructing calculus is noted in the right upper renal moiety. 6. Moderate to advanced colonic diverticulosis without CT evidence of acute diverticulitis. 7. Right greater than left inguinal lymphadenopathy is nonspecific and may be reactive. There are also prominent retroperitoneal and iliac chain nodes. Clinical correlation will be required. 8. Additional findings as above. ACT 112: Positive. There are findings on this exam that require communication between the performing entity and the patient following Patient Test Result Information Act ([place] Act 112) guidelines. Electronically signed by: Solis Pa M.D. 09/12/2021 3:22 PM Venous Doppler Study 09/12/21 14:07 RIGHT LOWER EXTREMITY VENOUS DOPPLER HISTORY: Right lower cavity pain. COMPARISON STUDY: None. FINDINGS: There is normal compressibility, flow, and augmentation within the right lower extremity deep venous system. Multiple areas of thrombosis seen within the right greater saphenous vein at the proximal thigh, distal thigh, proximal calf. A few mildly enlarged right inguinal lymph nodes measuring up to 4.4 x 3.9 x 1.5 cm. IMPRESSION: 1. No DVT within the right lower extremity. 2. Scattered areas of superficial thrombus identified within the right greater saphenous vein. 3. Mild right inguinal lymphadenopathy. ACT 112: Negative or not required by law. Electronically signed by: Franky Yoo M.D. 09/12/2021 4:16 PM Chest X-Ray 09/12/21 14:08 XR chest 1V portable CLINICAL HISTORY: Sepsis. COMPARISON STUDY: Chest radiograph July 01, 2019. FINDINGS: Lung volumes are normal. Lungs are clear. There is no pneumothorax or pleural effusion. Cardiac size is normal. Mediastinal contours are normal. There is no evidence for pulmonary edema. IMPRESSION: No acute cardiopulmonary findings. ACT 112: Negative or not required by law. Electronically signed by: Sahil Tineo M.D. 09/12/2021 3:[address] 09/13/21 12:24 CT foot RT wo con CLINICAL HISTORY: severe mid-foot pain; eval abscess, hardware, etc TECHNIQUE: Multidetector row helical CT of the right foot was performed without intravenous contrast. Coronal and sagittal reformations were obtained. Automated dose lowering techniques and/or adjustment according to patient size were u tilized for this examination. Comparison: None available at the time of this dictation. FINDINGS: The osseous structures are without fracture or dislocation. Patient is status post plate and screw fixation of the first digit proximal phalanx and first metatarsal. Pes planus deformity is seen. Soft tissue swelling is seen most prominent in the dorsum of the foot. No evidence of drainable fluid collection. No evidence of focal bony erosions to suggest osteomyelitis. IMPRESSION: Degenerative changes and pes planus deformity. No evidence of drainable fluid collection. Soft tissue swelling and skin thickening is seen most prominent in the dorsum of the foot. ACT 112: Negative or not required by law. Electronically signed by: Patrick Vargas M.D. 09/13/2021 3:20 PM Knee X-Ray 09/17/21 07:47 XR knee LT 3V CLINICAL HISTORY: Knee Pain - Effusion? COMPARISON: Leg length study April 02, 2021. FINDINGS: Alignment of the total left knee arthroplasty is anatomic. There is no periprosthetic fracture or lucency. No joint effusion is evident. IMPRESSION: 1. Status post total left knee arthroplasty. No periprosthetic fracture. 2. No joint effusion. ACT 112: Negative or not required by law. Electronically signed by: Saihl Tineo M.D. 09/17/2021 10:20 AM Hospital Course (1) Septicemia: - RESOLVED -- Did have a greater saphenous vein ablation in July 2021 - contributing? - 1 of 4 BCx with streptococcus pneumoniae (source is presumed to be RLE cellulitis) - Last BCx from 09/13 with NGTD; Echo without vegetations - [facility] ID consultation placed -- Continued Rocephin while hospitalized then converted to Augmentin to continue until F/U with outpatient ID Dr. Wheeler (September 24) -- Consider immune workup as outpatient per ID which can be arranged with her established ID provider - She was previously on suppressive Abx after her L knee infection - Gave Diflucan if needed for yeast infection while on Augmentin (2) Cellulitis: - RLE - RESOLVED - CT - degenerative changes and pes planus deformity, no fluid collection, soft tissue swelling and skin thickening in dorsum of the foot - Abx as discussed above (3) Right foot pain: - Possibly from swelling vs gout vs arthritic flair? - Seems to be improving with NSAIDs - H/O gastric sleeve - gave a short course of low dose Prednisone to assist with pain (4) Renal mass: - Incidental - 2.3 cm R sided renal mass - RCC is diagnosis of exclusion - Arranged F/U with Dr. Pelletier on September 23 for further evaluation (5) Tinea pedis: - Right foot - Continue Ketoconazole BID - will likely need few weeks treatment - She is established with a dietary server for ongoing monitoring and treatment needs (6) Abnormal ultrasound of lower extremity: RLE doppler on admission - multiple areas of superficial thrombosis in greater saphenous vein on R - is S/P ablation in July -- Thrombosis is small and likely consistent with ablation procedure - No treatment required at this time (7) Systolic murmur: - Echo without valvular dysfunction or vegetations - outflow tract murmur? - If continues with ongoing infections could consider a APPLE to further assess the heart valves (8) Vitamin B12 deficiency: - STABLE; continue supplementation (9) H/O gastric bypass: - NOTED (10) Parkinson disease: - STABLE; Has tremor; not maintained on medication for this (11) Lymphadenopathy, inguinal: - Bilateral on CT and with retroperitoneal -- Possibly related to cellulitis/ablation - Urology follow-up as discussed above given renal mass DVT proph - Lovenox - Has F/U with Dr. Wheeler already arranged (Sep 24) - Has F/U with Urology (Sep 23) - Has F/U with PCP on (Sep 25) Total Time Total Time Spent Total Time Spent (In Minutes): Spent greater than 30 minutes preparing patient for discharge. This includes discussion with patient/family, assessment, intervention, medication reconciliation, and coordination of care. Discharge Plan Discharge Items Patient Disposition: Home - Self-Care Reason For Visit: CELLULITIS Discharge Diagnosis: Cellulitis (Skin Infection) and Septicemia Activity: Resume your previous activity Non-emergency contact: Primary Care Provider Call non-emergency contact if: you have any medication questions, your symptoms worsen and you have a fever Follow-up/Referrals: Inocente Daley MD [Primary Care Provider] - (Has appointment already arranged for September 25.) David Pelletier MD [Physician] - 09/23/21 2:30 pm (Urology appointment for follow up regarding renal mass. Dr. Pelletier works with Dr. Dinh.) Diet: Regular Addtl Attending Provider Instructions: Cellulitis and Septicemia: - You were admitted due to a skin infection with bacteria also growing in one of your blood cultures. This culture was growing streptococcus pneumoniae. - Thankfully repeat blood cultures do not have any bacterial growth. The echo (ultrasound of your heart) did not show any vegetations on the heart valves. If you continue to have infections it may be worth doing an echo that is called transesophageal echo but you need anesthesia as this is a scope that goes into your mouth and down to look at your heart closer. - You have been treated with IV Rocephin while in the hospital and will transition to Augmentin starting tomorrow. You will take this until you follow up with Dr. Wheeler on September 24. From there you may continue this treatment or they may adjust it as needed. Since you had Rocephin in the hospital today you do not need to start the Augmentin until tomorrow - You will be given Diflucan to help prevent/treat any yeast infection you may get Tinea Pedis/Athletes Foot: - This can be a challenge to treat but can lead to ongoing skin infections so i ts best to try and control it as much as possible - We will continue the twice a day Ketoconazole treatment to see how this helps. - It may be best to talk with your dietary server about any other options or different treatments that may help. This can take weeks to fully treat Renal Mass: - Incidentally a kidney mass measuring 2.3 cm was found. You will need to see Urology to coordinate further work-up to determine the cause of this mass - An appointment was arranged with Dr. Pelletier. Pending Studies at Discharge: No Stand-Alone Forms: My [facility] [employer], Smoking Cessation Medications and DC Order Prescriptions: New ketoconazole 2 % Cream 1 applic EXT BID 28 Days Qty: 60 RF: 1 amoxicillin-pot clavulanate [Augmentin] 875-125 mg tablet 1 tab PO BID 10 Days Qty: 20 RF: 0 fluconazole [Diflucan] 150 mg tablet 150 mg PO Q3D PRN (Reason: Yeast Infection) Qty: 3 RF: 0 Continued escitalopram oxalate [Lexapro] 10 mg tablet 10 mg PO DAILY Qty: 30 RF: 5 cyanocobalamin (vitamin B-12) 1,000 mcg tablet 1,000 mcg PO PM RF: 0 multivitamin tablet 1 tab PO PM RF: 0 ascorbic acid (vitamin C) 500 mg capsule 500 mg PO PM RF: 0 cholecalciferol (vitamin D3) [Vitamin D3] 5,000 unit Tablet 5,000 unit PO PM RF: 0 ibuprofen 600 mg tablet 600 mg PO BID PRN (Reason: pain) RF: 0 Discontinued doxycycline hyclate 100 mg capsule 100 mg PO BID Qty: 14 RF: 0 fluconazole 150 mg tablet 150 mg PO Q3D PRN (Reason: Unknown) RF: 0 Discharge Orders: Discharge Order (Routine); Ordered 09/18/21 Ordered By: Halie Liu/Other Patient Handouts: Discharge Instructions for Cellulitis Admission Data Admit Date/Time: 09/12/21 16:45 Attending Provider: Patrick Mcbride Admit Provider: Lokesh Mast Primary Care Provider: Inocente Daley Other Providers: Lokesh Mast ; Casey Kramer ; Alicia Cook ; Danny Rubin I. ; Jonny Bowling II ; Opal Waite ; Chalino Whitmore ; Maxi Alvarado Other Interventions: Discharge Summary Assessment (RN) Last Done: 09/18/21 12:50 Supervising Physician Co-Signing Physician Notes Attending note: patient seen and examined with Halie Cedeno PA-C. I agree with her discharge summary. I personally reviewed the labs and imaging findings. patient doing well, no fever, no chills, repeat blood cultures clear, eating well, plans to follow up with ID - Septicemia, Strep pneumoniae completed Rocephin, change to Augmentin, follow up with ID on 09/24 Coding Level of Care Code D/C DAY MANAGEMENT >30 MINS Diagnoses Septicemia A41.9 Cellulitis L03.90 Site of cellulitis: unspecified site Right foot pain M79.671 Renal mass N28.89 Tinea pedis B35.3 Abnormal ultrasound of lower extremity R93.6 Systolic murmur R01.1 Vitamin B12 deficiency E53.8 H/O gastric bypass Z98.84 Parkinson disease G20 Lymphadenopathy, inguinal R59.0
--- NOTE | 2021-09-24 14:13 | Coding Query ---
CODING QUERY To promote full compliance with coding requirements relating to patient care, provider participation is requested in all cases of gas welder uncertainty. Please assist us with the question(s) below: Coding Question(s): Septicemia with Right Lower Extremity Cellulitis is documented and there is documentation, as on the Discharge Summary of, "Septicemia: - RESOLVED -- Did have a greater saphenous vein ablation in July 2021 - contributing? - 1 of 4 BCx with streptococcus pneumoniae (source is presumed to be RLE cellulitis)" , and there is documentation on Progress Notes, as on PN 09/15 of, "could her recent (07/2021) greater saphenous vein ablation set her up for this cellulitis??". Please specify below, in your clinical opinion. ( ) Sepsis with RLE Cellulitis are possibly due to Postprocedural Complication of infection from the ablation procedure ( x ) Sepsis with RLE Cellulitis are Not due Postprocedural Complication ( ) Other: Please Specify Physician's Response(s): Thank you Argenis Ramsey Principal Diagnosis: "that condition established after study, to be chiefly responsible for occasioning the admission of the patient to the hospital for care." Co-Existing Principal Diagnosis: "when two or more diagnoses equally meet the criteria for principal diagnosis as determined by the circumstances of admission, diagnostic work up, and/or therapy provided, and the Alphabetic Index, Tabular List, or another coding guideline does not provide sequencing direction, any one of the diagnoses may be sequenced first." "When the physician has documented what appears to be a current diagnosis in the body of the record, but has not included the diagnosis in the final diagnostic statement, the physician should be asked whether the diagnosis should be added." (Source Coding Clinic 2 QTR90. p3-4) DEBO
== END 2021-09-18 13:54 | disposition home or self-care (01) | DRG 872 ==
LOC: ED 12:46 → SUATTDRO 16:45 → 3E 16:45

== ENCOUNTER 2021-11-10 10:53 | Inpatient (IN) ==
[2021-11-10] MEDS ORDERED: ACETAMINOPHEN 1,000 MG/100 ML VIAL IV STA (11:04)
[2021-11-10] MEDS ORDERED: ONDANSETRON INJ 2 MG/ML 2 ML VIAL IV STA (11:26)
[2021-11-10] MEDS ORDERED: VANCOMYCIN CONSULT ACTIVE PRN (11:26)
[2021-11-10] MEDS ORDERED: VANCOMYCIN HCL 2,000 MG in SODIUM CHLORIDE 0.9% 500 ML IV ONE (11:26)
--- NOTE | 2021-11-10 11:32 | Emergency Department Note ---
History of Present Illness General Chief complaint: Fever Stated complaint: FEVER/LEGS HURT W/REDNESS/UPSET STOMACH Time Seen by Provider: 11/10/21 11:03 History of Present Illness Provider complaint: Fever right leg infection Onset (ago): day(s) 2 Location: lower extremity and right Radiation: non-radiation Severity: moderate Maximum Pain Intensity: 8 Current Pain Intensity: 8 Quality: + aching Relieved By: + none Exacerbated By: + none Associated symptoms: + fever/chills, + malaise, + nausea/vomiting and + rash; no cough, no seizure, no shortness of breath or no weakness 61-year-old female presents emergency department for right lower extremity pain fever. Patient states that she was recently started on cefdinir for cellulitis of her lower extremities. She states that yesterday she began having nausea and body aches. She states she developed a fever overnight. She states that now she is having body aches all over and nausea and her fever is getting worse. Patient states this is similar to last time that she had to be admitted for IV antibiotics for cellulitis. Patient denies any falls. She denies any chest pain or difficulty breathing. She does report a mild headache. Home Medications Medication Instructions Recorded Confirmed Type cyanocobalamin (vitamin B-12) 1,000 mcg PO PM tab 05/17/19 11/10/21 History 1,000 mcg tablet multivitamin 1 tab PO PM 05/17/19 11/10/21 History ascorbic acid (vitamin C) 500 mg 500 mg PO PM cap 06/08/19 11/10/21 History capsule cholecalciferol (vitamin D3) 125 5,000 unit PO PM 06/20/19 11/10/21 History mcg (5,000 unit) tablet (Vitamin D3) ibuprofen 600 mg tablet 600 mg PO BID PRN 12/08/19 11/10/21 History escitalopram oxalate 10 mg tablet 10 mg PO DAILY #30 tab 11/28/20 11/10/21 Rx (Lexapro) ketoconazole 2 % topical cream 1 applic EXT BID 28 Days #60 g 09/18/21 11/10/21 Rx cefdinir 300 mg capsule 300 mg PO BID 10 Days #20 cap 10/03/21 11/10/21 Rx acetaminophen 325 mg tablet 325 mg PO QID PRN 11/10/21 11/10/21 History (Tylenol) carbidopa 25 mg-levodopa 100 mg 1 tab PO TID 11/10/21 11/10/21 History tablet ciclopirox 8 % topical solution 1 applic TOPICAL DAILY 11/10/21 11/10/21 History Allergies Allergy/AdvReac Type Severity Reaction Status Date / Time coconut Allergy Intermediate HIVES Verified 11/10/21 12:36 oxaprozin Allergy Unknown Unknown Verified 11/10/21 12:36 Sulfa (Sulfonamide Allergy Unknown PT UNSURE Verified 11/10/21 12:36 Antibiotics) Past Med/Surg History Medical History Cellulitis Chronic back pain Degenerative disc disease History of asthma History of depression History of hyperlipidemia History of migraine headaches History of sleep apnea NO LONGER USES DEVICE SINCE WT LOSS Morbid obesity with BMI of 40.0-44.9, adult Osteopenia of lumbar spine Parkinson disease Vitamin B12 deficiency Surgical History H/O gastric bypass H/O hernia repair H/O total knee replacement (12/07/14) History of 2 sections History of cardiac cath 2009 - [facility], [place] - ABN EKG - NO STENTS/ANGIOPLASTY History of colonoscopy History of D&C History of eye surgery X 3 History of foot surgery History of hernia repair X 2 UMBILICAL History of left knee replacement History of ovarian cystectomy History of revision of total replacement of left knee joint History of weight loss surgery 2016 History of wisdom tooth extraction Hx of section Nausea and vomiting after administration of anesthetic agent Family History Father Cardiac disorder Myocardial infarction Grandfather Heart disease Mother Diabetes Chronic kidney disease NKF Classification Breast cancer Stroke syndrome Hypertension Heart disease Stroke Sister Ovarian cancer Diabetes Valvular heart disease Atrial fibrillation Cardiomyopathy Malignant neoplasm of uterus Slow to wake up after anesthesia Breast cancer Grandmother Diabetes Hypertension Daughter Endometriosis Uncle Myocardial infarction Grandmother (Maternal) No problems noted. 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) How many Children do You have: 2 Feels Safe at Home: Yes Childhood Exposure to Second-Hand Smoke: Yes caffeine: Yes Dental Care, Regularly: Yes Physical Activity Frequency: Does not Exercise Seatbelt Use: always Sunscreen Use: Yes Assistive Devices: Glasses and Walker Review of Systems A total of 10 systems reviewed and were otherwise negative Physical Exam Vital Signs Vital Signs - 24 hr 11/10/21 10:59 11/10/21 12:38 Temperature 39.1 C H Temperature Source Temporal Artery Scan Pulse Rate 105 H Pulse Rate [Apical] 96 H Respiratory Rate 20 18 Respiratory Effort / Characteristics Non-Labored Spontaneous Respiratory Depth Normal Respiratory Pattern Regular Blood Pressure 126/72 Blood Pressure [Left Arm] 107/64 Blood Pressure Mean 90 Blood Pressure Mean [Left Arm] 78 Pulse Oximetry 95 94 Oxygen Delivery Method Room Air Room Air Sepsis Recent Fever Within 48 Hours Yes Sepsis New/Unexplained Change in Mental Status No Sepsis Action Taken by Nursing No Action Required Physical Exam GENERAL: She is oriented to person, place, and time. She appears well-developed and well-nourished. She does not appear distressed. HENT: Exam performed. -Head: Normocephalic and atraumatic. -Right Ear: External ear normal. No mastoid tenderness. -Left Ear: External ear normal. No mastoid tenderness. -Mouth/Throat: The oropharynx is clear and moist. No trismus in the jaw. No dental abscesses or uvula swelling. No oropharyngeal exudate or tonsillar abscesses. EYES: Conjunctivae and EOM are normal. Pupils are equal, round, and reactive to light. Right eye exhibits no discharge. Left eye exhibits no discharge. No scleral icterus. NECK: Normal range of motion. Neck supple. No JVD present. No spinous process tenderness present. No carotid bruit present. No rigidity. No tracheal deviation and normal range of motion present. No Brudzinski's sign and no Kernig's sign noted. CV: Tachycardic rate, regular rhythm, normal heart sounds and intact distal pulses. Palpable radial pulses bue. PULM/CHEST: Effort normal and breath sounds normal. No respiratory distress. No stridor. She has no wheezes. She has no rales. -Chest Wall: She exhibits no tenderness. ABD: The abdomen is soft. Bowel sounds are normal. She has no distension. No mass is present. There is no tenderness. There is no rebound, no guarding, no Drew's sign and no tenderness at McBurney's point. Rovsig negative MUSC/SKEL: Erythema and warmth to the right lower extremity over the calf that is circumferential. Consistent with appearance of cellulitis. No fluctuant areas. No vesicles. No purpura. LYMPH: No cervical adenopathy. NEURO: She is alert and oriented to person, place, and time. She has normal strength. No cranial nerve deficit or sensory deficit. Coordination and gait normal. GCS eye subscore is 4. GCS verbal subscore is 5. GCS motor subscore is 6. Cerebellar tests wnl. PSYCH: She has a normal mood and affect. Behavior is normal. Judgment and thought content normal. Course Course 1103: The patient was evaluated in room C10. A complete history and physical exam was performed Cardiac monitoring: An order was placed for continuous cardiac monitoring. The monitor shows a rate of 90 with sinus rhythm 1311: Vital signs stable. Labs show leukocytosis 16.7. Lactic acid within normal limits. Procalcitonin elevated 0.6. Patient treated with vancomycin for her cellulitis. Patient be admitted to Dr. Halie valdez any hospitalist team he is aware. Ultrasound of the lower extremity is still pending however DVT is unlikely given the clinical appearance elevated white blood cell count and elevated procalcitonin level. Administered Medications Vancomycin HCl 2,000 mg/ (Sodium Chloride) 540 mls @ 200 mls/hr IV NOW ONE Stop: 11/10/21 14:07 Last Admin: 11/10/21 12:52 Dose: 200 mls/hr Documented by: [id number] Discontinued Medications Acetaminophen (Ofirmev) 1,000 mg in 100 mls @ 400 mls/hr IV NOW STA Stop: 11/10/21 11:18 Last Infusion: 11/10/21 12:26 Dose: 0 mls/hr Documented by: [id number] Admin: 11/10/21 11:45 Dose: 400 mls/hr Documented by: [id number] Ondansetron HCl (Ondansetron Inj 2 Mg/Ml 2 Ml Vial) 4 mg IV NOW STA Stop: 11/10/21 11:27 Last Admin: 11/10/21 12:03 Dose: 4 mg Documented by: [id number] Medical Decision Making Laboratory Data Result diagrams: 11/10/21 11:30 11/10/21 11:30 Lab Results 11/10/21 11/10/21 11/10/21 Range/Units 11:30 11:30 11:30 WBC 16.78 H (4.8-10.8) K/uL RBC 4.10 L (4.2-5.4) M/uL Hgb 12.6 (12.0-16.0) g/dL Hct 38.6 (37-47) % MCV 94.1 (80-100) fL MCH 30.7 (25-34) pg MCHC 32.6 (32-36) g/dL RDW Std Deviation 49.6 H (36.4-46.3) fL RDW Coeff of Ashlie 14.5 (11.5-14.5) % Plt Count 269 (130-400) K/uL MPV 9.6 (7.4-10.4) fL Immature Gran % (Auto) 0.4 % Neut % (Auto) 94.7 % Lymph % (Auto) 2.4 % Caroline % (Auto) 2.4 % Eos % (Auto) 0.0 % Baso % (Auto) 0.1 % Neut # (Auto) 15.90 H (1.4-6.5) K/uL Lymph # (Auto) 0.41 L (1.2-3.4) K/uL Caroline # (Auto) 0.40 (0.11-0.59) K/uL Eos # (Auto) 0.00 (0-0.5) K/uL Baso # (Auto) 0.01 (0-0.2) K/uL Immature Gran # (Auto) 0.06 H (0.00-0.02) K/uL PT (9.0-12.0) Seconds INR (0.9-1.1) APTT (21.0-31.0) Seconds PTT Ratio Sodium 140 (136-145) mmol/L Potassium 3.7 (3.5-5.1) mmol/L Chloride 106 (98-107) mmol/L Carbon Dioxide 25 (21-32) mmol/L Anion Gap 9.0 (3-11) BUN 18 (7-18) mg/dl Creatinine 0.70 (0.6-1.2) mg/dl Est Cr Clr Drug Dosing 102.4 ml/min Est GFR ( Amer) 108.4 ml/min Est GFR (Non-Af Amer) 93.5 ml/min BUN/Creatinine Ratio 26.1 H (10-20) Glucose 99 (70-99) mg/dl Lactate (0.4-2.0) mmol/L Calcium 9.1 (8.5-10.1) mg/dl Magnesium 1.6 L (1.8-2.4) mg/dl Total Bilirubin 0.7 (0.2-1) mg/dl AST 44 H (15-37) U/L ALT 10 L (12-78) Alkaline Phosphatase 68 (45-117) U/L Troponin I < 0.015 (0-0.045) ng/ml Total Protein 7.4 (6.4-8.2) gm/dl Albumin 3.2 L (3.4-5.0) gm/dl Globulin 4.2 H (2.5-4.0) gm/dl Albumin/Globulin Ratio 0.8 L (0.9-2) Procalcitonin 0.60 H (0-0.5) ng/ml Urine Color Urine Appearance (Clear) Urine pH (4.5-7.5) Ur Specific [place] (1.000-1.030) Urine Protein (Negative) Urine Glucose (UA) (Negative) Urine Ketones (Negative) Urine Blood (Negative) Urine Nitrite (Negative) Urine Bilirubin (Negative) Urine Urobilinogen (Negative) Ur Leukocyte Esterase (Negative) 11/10/21 11/10/21 11/10/21 Range/Units 11:30 11:30 12:55 WBC (4.8-10.8) K/uL RBC (4.2-5.4) M/uL Hgb (12.0-16.0) g/dL Hct (37-47) % MCV (80-100) fL MCH (25-34) pg MCHC (32-36) g/dL RDW Std Deviation (36.4-46.3) fL RDW Coeff of Ashlie (11.5-14.5) % Plt Count (130-400) K/uL MPV (7.4-10.4) fL Immature Gran % (Auto) % Neut % (Auto) % Lymph % (Auto) % Caroline % (Auto) % Eos % (Auto) % Baso % (Auto) % Neut # (Auto) (1.4-6.5) K/uL Lymph # (Auto) (1.2-3.4) K/uL Caroline # (Auto) (0.11-0.59) K/uL Eos # (Auto) (0-0.5) K/uL Baso # (Auto) (0-0.2) K/uL Immature Gran # (Auto) (0.00-0.02) K/uL PT 10.4 (9.0-12.0) Seconds INR 1.0 (0.9-1.1) APTT 27.5 (21.0-31.0) Seconds PTT Ratio 1.0 Sodium (136-145) mmol/L Potassium (3.5-5.1) mmol/L Chloride (98-107) mmol/L Carbon Dioxide (21-32) mmol/L Anion Gap (3-11) BUN (7-18) mg/dl Creatinine (0.6-1.2) mg/dl Est Cr Clr Drug Dosing ml/min Est GFR ( Amer) ml/min Est GFR (Non-Af Amer) ml/min BUN/Creatinine Ratio (10-20) Glucose (70-99) mg/dl Lactate 1.0 (0.4-2.0) mmol/L Calcium (8.5-10.1) mg/dl Magnesium (1.8-2.4) mg/dl Total Bilirubin (0.2-1) mg/dl AST (15-37) U/L ALT (12-78) Alkaline Phosphatase (45-117) U/L Troponin I (0-0.045) ng/ml Total Protein (6.4-8.2) gm/dl Albumin (3.4-5.0) gm/dl Globulin (2.5-4.0) gm/dl Albumin/Globulin Ratio (0.9-2) Procalcitonin (0-0.5) ng/ml Urine Color Yellow Urine Appearance Clear (Clear) Urine pH 7.5 (4.5-7.5) Ur Specific [place] 1.021 (1.000-1.030) Urine Protein Negative (Negative) Urine Glucose (UA) Negative (Negative) Urine Ketones Negative (Negative) Urine Blood Negative (Negative) Urine Nitrite Negative (Negative) Urine Bilirubin Negative (Negative) Urine Urobilinogen Negative (Negative) Ur Leukocyte Esterase Negative (Negative) Imaging Data Radiologist's Impression: Chest X-Ray 11/10/21 11:04 XR chest 1V portable HISTORY: 61 years-old Female SEPSIS acute sepsis COMPARISON: Chest radiograph 09/12/2021 TECHNIQUE: Portable AP view of the chest FINDINGS: Cardiac silhouette is upper limits of normal in size. Asymmetric right hilar prominence is unchanged. Chronic right hemidiaphragmatic elevation. No pneumothorax, pleural effusion, airspace consolidation or overt pulmonary edema. Left cervical rib. Degenerative changes of the shoulders and spine. IMPRESSION: No acute process. ACT 112: Negative or not required by law. The above report was generated using voice recognition software. It may contain grammatical, syntax or spelling errors. Electronically signed by: Vargas Moreno M.D. 11/10/2021 11:36 AM ECG Data Indication: + other (sepsis) Rate (beats per minute): 95 Rhythm: + normal sinus ECG Intervals/blocks: + Normal QRS, + Normal RI and + Normal QT-c ECG ST segments: + Normal ST segments MDM Narrative Vital signs stable. Labs show leukocytosis 16.7. Lactic acid within normal limits. Procalcitonin elevated 0.6. Patient treated with vancomycin for her cellulitis. Patient be admitted to Dr. Halie valdez any hospitalist team he is aware. Ultrasound of the lower extremity is still pending however DVT is unlikely given the clinical appearance elevated white blood cell count and elevated procalcitonin level. Impression & Plan Cellulitis, Sepsis Discharge Plan Visit Data Chief Complaint: Fever Stated Complaint: FEVER/LEGS HURT W/REDNESS/UPSET STOMACH ED Provider: Bubba Brand Discharge Problem: Cellulitis, Sepsis Patient Disposition: Admitted As Inpatient Forms Stand Alone Forms: [facility] Prescriptions Prescriptions: No Action cefdinir 300 mg capsule 300 mg PO BID 10 Days Qty: 20 RF: 0 escitalopram oxalate [Lexapro] 10 mg tablet 10 mg PO DAILY Qty: 30 RF: 5 cyanocobalamin (vitamin B-12) 1,000 mcg tablet 1,000 mcg PO PM RF: 0 multivitamin tablet 1 tab PO PM RF: 0 ascorbic acid (vitamin C) 500 mg capsule 500 mg PO PM RF: 0 cholecalciferol (vitamin D3) [Vitamin D3] 5,000 unit Tablet 5,000 unit PO PM RF: 0 ibuprofen 600 mg tablet 600 mg PO BID PRN (Reason: pain) RF: 0 ketoconazole 2 % Cream 1 applic EXT BID 28 Days Qty: 60 RF: 1 acetaminophen [Tylenol] 325 mg Tablet 325 mg PO QID PRN (Reason: Pain) RF: 0 ciclopirox 8 % solution 1 applic TOPICAL DAILY RF: 0 carbidopa-levodopa 25-100 mg tablet 1 tab PO TID RF: 0 Referrals Referrals: Inocente Daley MD [Primary Care Provider] -
--- NOTE | 2021-11-10 11:37 | XRay Report ---
XR chest 1V portable HISTORY: 61 years-old Female SEPSIS acute sepsis COMPARISON: Chest radiograph 09/12/2021 TECHNIQUE: Portable AP view of the chest FINDINGS: Cardiac silhouette is upper limits of normal in size. Asymmetric right hilar prominence is unchanged. Chronic right hemidiaphragmatic elevation. No pneumothorax, pleural effusion, airspace consolidation or overt pulmonary edema. Left cervical rib. Degenerative changes of the shoulders and spine. IMPRESSION: No acute process. ACT 112: Negative or not required by law. The above report was generated using voice recognition software. It may contain grammatical, syntax o r spelling errors. Electronically signed by: Vargas Moreno M.D. 11/10/2021 11:36 AM
[2021-11-10 11:49] LABS: Basophils # (auto) 0.01 K/uL (0-0.2); Basophils % (auto) 0.1 %; Hematocrit (blood only) 38.6 % (37-47); Hemoglobin 12.6 g/dL (12.0-16.0); Immature Granulocytes # (auto) 0.06 K/uL (0.00-0.02); Immature Granulocytes % (auto) 0.4 %; Lymphocytes # (auto) 0.41 K/uL (1.2-3.4); Lymphocytes % (auto) 2.4 %; Mean Corpuscular Hemoglobin 30.7 pg (25-34); Mean Corpuscular Hgb Conc 32.6 g/dL (32-36); Mean Corpuscular Volume 94.1 fL (80-100); Mean Platelet Volume 9.6 fL (7.4-10.4); Monocytes % (auto) 2.4 %; Neutrophils % (auto) 94.7 %; Platelet Count 269 K/uL (130-400); RDW Coefficient of Variation 14.5 % (11.5-14.5); RDW Standard Deviation 49.6 fL (36.4-46.3); White Blood Count 16.78 K/uL (4.8-10.8)
[2021-11-10 12:00] LABS: Partial Thromboplastin Time 27.5 Seconds (21.0-31.0); Prothrombin Time 10.4 Seconds (9.0-12.0)
[2021-11-10 12:08] LABS: Alanine Aminotransferase 10 (12-78); Albumin Level 3.2 gm/dl (3.4-5.0); Aspartate Aminotransferase 44 U/L (15-37); BUN Creatinine Ratio 26.1 (10-20); Blood Urea Nitrogen 18 mg/dl (7-18); Calcium 9.1 mg/dl (8.5-10.1); Carbon Dioxide 25 mmol/L (21-32); Chloride 106 mmol/L (98-107); Creatinine Clr Calc Pharmacy 102.4 ml/min; Est GFR (African American) 108.4 ml/min; Est GFR (Non-African American) 93.5 ml/min; Glucose 99 mg/dl (70-99); Magnesium 1.6 mg/dl (1.8-2.4); Potassium 3.7 mmol/L (3.5-5.1); Sodium 140 mmol/L (136-145)
[2021-11-10 12:13] LABS: Albumin Globulin Ratio 0.8 (0.9-2); Alkaline Phosphatase 68 U/L (45-117); Bilirubin,Total 0.7 mg/dl (0.2-1); Globulin 4.2 gm/dl (2.5-4.0); Total Protein 7.4 gm/dl (6.4-8.2); Troponin I < 0.015 ng/ml (0-0.045)
[2021-11-10] MEDS ORDERED: cefTRIAXone SODIUM 2,000 MG/70 ML BAG IV STA (13:01)
[2021-11-10 13:06] LABS: Appearance Urine Clear (Clear); Bilirubin Urine Negative (Negative); Blood Urine Negative (Negative); Color Urine Yellow; Glucose Urine UA Negative (Negative); Ketones Urine Negative (Negative); Leukocyte Esterase Urine Negative (Negative); Nitrite Urine Negative (Negative); Protein Urine Negative (Negative); Specific Gravity Urine 1.021 (1.000-1.030); Urobilinogen Urine Negative (Negative); pH Urine 7.5 (4.5-7.5)
--- NOTE | 2021-11-10 13:27 | History & Physical Report ---
Date of Service November 10, 2021 Assessment & Plan (1) Recurrent cellulitis: Plan: Exam findings out of proportion considering how unwell she appears suggesting she is bacteremic again No history of pseudomonas therefore will cover empirically with IV ceftriaxone and vancomycin pending blood cultures Given recurrent nature will need ID consult once cultures return as may need to go back on chronic antibiotics for suppression given she was doing much better on this prior to discontinuation earlier this year. Consider repeat TTE and APPLE pending blood culture results given systolic murmur on exam with recurrent bacteremia. (2) Onychomycosis of foot with other complication: Plan: Continue ketoconazole cream (3) Renal mass: Plan: Under active surveillance by [facility] (4) H/O gastric bypass: Plan: Notes history of such. Continue her usual supplementation (5) Systolic murmur: Plan: Noted history of this (6) Parkinson disease: Plan: Continue Sinemet 1 tab PO TID Plan: VTE Prophylaxis - Lovenox 40mg SQ QPM Diet - regular Disposition - admit to med/surg Admission and Anticipated Discharge Date Admission Date: November 10, 2021 History of Present Illness Chief Complaint: Cellulitis Primary Care Provider: Inocente Daley MD Renu Santana is a 61 year old female who presents to the ER with fever, chills and concern for right lower extremity cellulitis. She reports symptoms present for the last week progressively getting worse despite relatively quickly being prescribed cefdinir. Despite this her right lower extremity has become more swollen, warm and tender and she has felt increasingly weak. She reports ongoing problems with infections for multiple years (since ) however significant recurrence of cellulitis starting with an infected left total knee arthroplasty in 2014 with Group B strep. She was previously on chronic amoxicillin/augmentin for prophylaxis however this was discontinued 6 months ago after switching infectious disease doctors. She was admitted for strep pneumoniae bacteremia from presumed RLE cellulitis earlier this year in August. In the ER WBC 16.78. Temp 39.1 degrees celsius. She was started on IV vancomycin. Lactate 1.0. She was referred to medicine for admission and ongoing management of cellultitis. Allergies Allergy/AdvReac Type Severity Reaction Status Date / Time coconut Allergy Intermediate HIVES Verified 11/10/21 12:36 oxaprozin Allergy Unknown Unknown Verified 11/10/21 12:36 Sulfa (Sulfonamide Allergy Unknown PT UNSURE Verified 11/10/21 12:36 Antibiotics) Home Medications Medication Instructions Recorded Confirmed Type cyanocobalamin (vitamin B-12) 1,000 mcg PO PM tab 05/17/19 11/10/21 History 1,000 mcg tablet multivitamin 1 tab PO PM 05/17/19 11/10/21 History ascorbic acid (vitamin C) 500 mg 500 mg PO PM cap 06/08/19 11/10/21 History capsule cholecalciferol (vitamin D3) 125 5,000 unit PO PM 06/20/19 11/10/21 History mcg (5,000 unit) tablet (Vitamin D3) ibuprofen 600 mg tablet 600 mg PO BID PRN 12/08/19 11/10/21 History escitalopram oxalate 10 mg tablet 10 mg PO DAILY #30 tab 11/28/20 11/10/21 Rx (Lexapro) ketoconazole 2 % topical cream 1 applic EXT BID 28 Days #60 g 09/18/21 11/10/21 Rx cefdinir 300 mg capsule 300 mg PO BID 10 Days #20 cap 10/03/21 11/10/21 Rx acetaminophen 325 mg tablet 325 mg PO QID PRN 11/10/21 11/10/21 History (Tylenol) carbidopa 25 mg-levodopa 100 mg 1 tab PO TID 11/10/21 11/10/21 History tablet ciclopirox 8 % topical solution 1 applic TOPICAL DAILY 11/10/21 11/10/21 History Past Med/Surg History Medical History (Updated 11/10/21 @ 21:17 by Demetrius Ambrose MD) Cellulitis Chronic back pain Degenerative disc disease History of asthma History of depression History of hyperlipidemia History of migraine headaches History of sleep apnea NO LONGER USES DEVICE SINCE WT LOSS Morbid obesity with BMI of 40.0-44.9, adult PATRICK (obstructive sleep apnea) Osteopenia of lumbar spine Parkinson disease Vitamin B12 deficiency Surgical History H/O gastric bypass H/O hernia repair H/O total knee replacement (12/07/14) History of 2 sections History of cardiac cath 2009 - [facility] - ABN EKG - NO STENTS/ANGIOPLASTY History of colonoscopy History of D&C History of eye surgery X 3 History of foot surgery History of hernia repair X 2 UMBILICAL History of left knee replacement History of ovarian cystectomy History of revision of total replacement of left knee joint History of weight loss surgery 2016 History of wisdom tooth extraction Hx of section Nausea and vomiting after administration of anesthetic agent Family History Father Cardiac disorder Myocardial infarction Grandfather Heart disease Mother Diabetes Chronic kidney disease NKF Classification Breast cancer Stroke syndrome Hypertension Heart disease Stroke Sister Ovarian cancer Diabetes Valvular heart disease Atrial fibrillation Cardiomyopathy Malignant neoplasm of uterus Slow to wake up after anesthesia Breast cancer Grandmother Diabetes Hypertension Daughter Endometriosis Uncle Myocardial infarction Grandmother (Maternal) No problems noted. Denies family history of Prostate cancer Lung cancer Colorectal cancer Social History Smoking Status: Former smoker Second Hand Exposure: No ( A CHILD); Hx Alcohol Use: Yes Alcohol type: wine Alcohol Intake Frequency: Monthly or Less Hx Substance Use: No Preferred Language: Maori Communication Ability: Effective Visual Impairment: Limited Hearing Ability: Normal [employer] Required: No Beliefs That Will Affect Care: None marital status: Current Living Situation: Significant Other Current Living Situation Comment: boyfriend current occupational status: employed current occupation: [employer] ([employer]) How many Children do You have: 2 Feels Safe at Home: No Is there a partner from a previous relationship who is making you feel unsafe now?: No Safety Concerns: Feels Safe At This Time Childhood Exposure to Second-Hand Smoke: Yes caffeine: Yes Dental Care, Regularly: Yes Physical Activity Frequency: Does not Exercise Seatbelt Use: always Sunscreen Use: Yes Assistive Devices: Wheelchair Review of Systems Review of Systems: All systems reviewed & are unremarkable except as noted in HPI & below Bilateral lateral hip pain Physical Exam Constitutional: WD/WN, vitals as above + acute distress (pain in right leg) Eyes: + anicteric sclerae; normal pupil size Neck: trachea midline, no thyromegaly Respiratory: normal respiratory effort, lungs clear to auscultation Cardiovascular: Rate/Rhythm: regular rate and regular rhythm Heart Sounds: + murmur (holosystolic throughout) Vessels: no JVD Extremities: normal capillary refill, + calf tenderness (right) and + pedal edema (1+ right pre- tibial pitting) Gastrointestinal (Abdomen): Inspection/Auscultation: normal bowel sounds Percussion/Palpation: abdomen soft; abdomen nontender, no guarding and abdomen not rigid Skin: + erythema (mild anterior johnson to ankle with associated swelling and warmth) Neurologic: moves all extremities and awake; not confused Psychiatric: A+Ox3, euthymic affect Results & Data Results & Data ([facility]) Vital Signs (Past 12 Hours) Vital Signs Temp Pulse Pulse Resp BP BP Pulse Ox 11/10/21 13:00 97 H 11 L 11/10/21 12:38 96 H 18 107/64 94 11/10/21 12:30 21 107/64 94 11/10/21 12:00 94 H 23 118/64 95 11/10/21 11:30 95 H 25 H 11/10/21 11:23 90 27 H 11/10/21 10:59 39.1 C H 105 H 20 126/72 95 Laboratory Results Abnormal lab results 11/10/21 11/10/21 11/10/21 Range/Units 11:30 11:30 11:30 WBC 16.78 H (4.8-10.8) K/uL RBC 4.10 L (4.2-5.4) M/uL RDW Std Deviation 49.6 H (36.4-46.3) fL Neut # (Auto) 15.90 H (1.4-6.5) K/uL Lymph # (Auto) 0.41 L (1.2-3.4) K/uL Immature Gran # (Auto) 0.06 H (0.00-0.02) K/uL BUN/Creatinine Ratio 26.1 H (10-20) Magnesium 1.6 L (1.8-2.4) mg/dl AST 44 H (15-37) U/L ALT 10 L (12-78) Albumin 3.2 L (3.4-5.0) gm/dl Globulin 4.2 H (2.5-4.0) gm/dl Albumin/Globulin Ratio 0.8 L (0.9-2) Procalcitonin 0.60 H (0-0.5) ng/ml Diagnostic Findings XR chest 1V portable HISTORY: 61 years-old Female SEPSIS acute sepsis COMPARISON: Chest radiograph 09/12/2021 TECHNIQUE: Portable AP view of the chest FINDINGS: Cardiac silhouette is upper limits of normal in size. Asymmetric right hilar prominence is unchanged. Chronic right hemidiaphragmatic elevation. No pneumothorax, pleural effusion, airspace consolidation or overt pulmonary edema. Left cervical rib. Degenerative changes of the shoulders and spine. IMPRESSION: No acute process. US venous doppler LE RT HISTORY: 61 years-old Female ro dvt acute pain and swelling of the right lower leg. Follow up study in a patient with superficial venous thrombus of the right greater saphenous vein. COMPARISON: Duplex venous Doppler study 09/12/2021 TECHNIQUE: Multiple real-time sonographic images of the right lower extremity deep venous structures were obtained assessing grayscale appearance, color and spectral flow. FINDINGS: Normal flow, compressibility, phasicity and augmentation within the deep venous structures. Limited visualization of the calf veins. Chronic areas of partial calcified thrombus are again noted within the greater saphenous vein appears similar to prior. Right inguinal chain lymph nodes are redemonstrated. Beasley bcutaneous edema. IMPRESSION: 1. No DVT. 2. Chronic superficial venous thrombi of the greater saphenous vein are redemonstrated. 3. Right inguinal chain adenopathy. Medications Administered ER Medications Given: Acetaminophen 1000mg IV Vancomycin 2000mg IV Ondansetron 4mg IV ECG Indication: tachycardia Rate (beats per minute): 95 Rhythm: normal sinus Findings: no acute ischemic change Comparison ECG Date: from (Sep 13, 2021) Change: the following changes noted (Nonspecific TW abnormality no longer present) Code Status & VTE Plan Code Status Full VTE Prophylaxis Plan VTE Prophylaxis will be ordered: Yes PG Care Time/CCT Total # of Minutes Spent Total Time Spent with Patient: Total time spent is greater than 50% in coordination of care (as documented) at patient's floor/unit and/or counseling patient: Coding Level of Care Code 78984 Initial Inpt Care Lvl 3 Diagnoses Recurrent cellulitis L03.90 Onychomycosis of foot with other complication B35.1 Renal mass N28.89 H/O gastric bypass Z98.84 Systolic murmur R01.1 Parkinson disease G20
[2021-11-10] MEDS ORDERED: SODIUM CHLORIDE 0.9% 1000ML 500 ML IV ONE (13:41)
[2021-11-10 13:47] LABS: Influenza A virus by PCR Negative (Neg); Influenza B virus by PCR Negative (Neg); RSV by PCR Negative (Neg); SARS CoV2 RNA(COVID-19) InHosp NEGATIVE (Negative)
--- NOTE | 2021-11-10 14:31 | Electrocardiogram Report ---
Test Reason : Blood Pressure : / mmHG Vent. Rate : 095 BPM Atrial Rate : 095 BPM P-R Int : 154 ms QRS Dur : 096 ms QT Int : 388 ms P-R-T Axes : 051 -07 044 degrees QTc Int : 487 ms Normal sinus rhythm Possible Left atrial enlargement Possible Anterior infarct , age undetermined vs lead placement Abnormal ECG When compared with ECG of 13-SEP-2021 09:08, Vent. rate has increased BY 38 BPM Nonspecific T wave abnormality no longer evident in Lateral leads Confirmed by Ruben Rubin ([id number]) on 11/10/2021 2:31:04 PM Referred By: REFERRED SELF Confirmed By:Ruben Rubin
--- NOTE | 2021-11-10 14:40 | Ultrasound Report ---
US venous doppler LE RT HISTORY: 61 years-old Female ro dvt acute pain and swelling of the right lower leg. Follow up study in a patient with superficial venous thrombus of the right greater saphenous vein. COMPARISON: Duplex venous Doppler study 09/12/2021 TECHNIQUE: Multiple real-time sonographic images of the right lower extremity deep venous structures were obtained assessing grayscale appearance, color and spectral flow. FINDINGS: Normal flow, compressibility, phasicity and augmentation within the deep venous structures. Limited v isualization of the calf veins. Chronic areas of partial calcified thrombus are again noted within th e greater saphenous vein appears similar to prior. Right inguinal chain lymph nodes are redemonstrate d. Subcutaneous edema. IMPRESSION: 1. No DVT. 2. Chronic superficial venous thrombi of the greater saphenous vein are redemonstrated. 3. Right inguinal chain adenopathy. ACT 112: Negative or not required by law. The above report was generated using voice recognition software. It may contain grammatical, syntax o r spelling errors. Electronically signed by: Vargas Moreno M.D. 11/10/2021 2:39 PM
[2021-11-10] MEDS ORDERED: SODIUM CHLORIDE 0.9% 1000ML 1,000 ML IV ONE (15:37)
[2021-11-10] MEDS ORDERED: ONDANSETRON INJ 2 MG/ML 2 ML VIAL IV PRN (16:46)
[2021-11-10] MEDS ORDERED: POLYETHYLENE (MIRALAX) 17 GM PACK PO PRN (16:46)
[2021-11-10] MEDS: ACETAMINOPHEN 325 MG TAB PO PRN ×2 (18:14→22:41)
--- NOTE | 2021-11-10 19:23 | Pharmacy Report ---
Pharmacy Vanc AUC Short Note - Date of Service November 10, 2021 - Assessment & Plan Assessment 61 year old F presenting with right lower extremity pain and also fever. She recently was on cefdinir for LE cellulitis. She reports having nausea and body aches per notes. Vancomycin and rocephin started on admission. Blood cultures are pending. Records list hx of prosthetic knee infection Plan Vancomycin * AUC/GIN is the preferred PK/PD target for vancomycin * AUC guided dosing is effective and associated with decreased risk of nephrotoxicity compared to traditional trough targets * Patient received vancomycin 2000 mg x 1 loading dose, then will start 1500 mg iv q 12 hrs * Dosing estimated to produce a trough level of 18 mcg/mL is predicted to achieve target AUC/GIN of 400-600 mg/L.hr and may be associated with a 15 % risk of nephrotoxicity * Plan to order level if continued >48 hrs or sooner if renal function changes Pharmacy will continue to follow and will adjust dose/frequency as necessary. Thank you.
[2021-11-10] MEDS: VANCOMYCIN HCL 1,500 MG in SODIUM CHLORIDE 0.9% 500 ML IV SCH (20:03)
[2021-11-10] MEDS: CARBIDOPA/LEVODOPA 25/100MG TAB PO SCH ×3 (20:07→22:40)
[2021-11-10] MEDS: CYANOCOBALAMIN 500 MCG TABLET (VITAMIN B-12) PO SCH (20:08)
[2021-11-10] MEDS: ASCORBIC ACID 500 MG TAB PO SCH (20:08)
[2021-11-10] MEDS: CHOLECALCIFEROL 5,000 UNITS 125 MCG TAB PO SCH (20:09)
[2021-11-10] MEDS: MULTIVITAMIN TAB PO SCH (20:09)
[2021-11-10] MEDS: MAGNESIUM OXIDE 400 MG TAB PO SCH (20:09)
[2021-11-10] MEDS: KETOCONAZOLE 2% CR 15 GM TUBE EXT SCH (20:10)
[2021-11-10] MEDS: ENOXAPARIN INJ 40 MG/0.4 ML SYR SQ SCH (22:40)
[2021-11-11 07:12] LABS: Basophils # (auto) 0.01 K/uL (0-0.2); Basophils % (auto) 0.1 %; Eosinophils # (auto) 0.04 K/uL (0-0.5); Eosinophils % (auto) 0.5 %; Hematocrit (blood only) 33.6 % (37-47); Hemoglobin 10.7 g/dL (12.0-16.0); Immature Granulocytes # (auto) 0.03 K/uL (0.00-0.02); Immature Granulocytes % (auto) 0.3 %; Lymphocytes # (auto) 1.04 K/uL (1.2-3.4); Lymphocytes % (auto) 11.9 %; Mean Corpuscular Hemoglobin 30.3 pg (25-34); Mean Corpuscular Hgb Conc 31.8 g/dL (32-36); Mean Corpuscular Volume 95.2 fL (80-100); Monocytes % (auto) 5.7 %; Neutrophils # (auto) 7.15 K/uL (1.4-6.5); Neutrophils % (auto) 81.5 %; Platelet Count 211 K/uL (130-400); RDW Coefficient of Variation 14.9 % (11.5-14.5); Red Blood Count 3.53 M/uL (4.2-5.4); White Blood Count 8.77 K/uL (4.8-10.8)
[2021-11-11] MEDS: VANCOMYCIN HCL 1,500 MG in SODIUM CHLORIDE 0.9% 500 ML IV SCH ×2 (07:15→20:26)
[2021-11-11] MEDS: KETOCONAZOLE 2% CR 15 GM TUBE EXT SCH ×2 (07:18→20:29)
[2021-11-11] MEDS: CARBIDOPA/LEVODOPA 25/100MG TAB PO SCH ×3 (07:19→20:25)
[2021-11-11] MEDS: MAGNESIUM OXIDE 400 MG TAB PO SCH ×2 (07:19→20:25)
[2021-11-11] MEDS: ESCITALOPRAM OXALATE 10 MG TAB PO SCH (07:19)
[2021-11-11 07:47] LABS: BUN Creatinine Ratio 19.9 (10-20); C Reactive Protein 13.4 mg/dl (0-0.29); Calcium 8.5 mg/dl (8.5-10.1); Creatinine Clr Calc Pharmacy 108.5 ml/min; Est GFR (Non-African American) 94.9 ml/min; Potassium 3.6 mmol/L (3.5-5.1)
[2021-11-11] MEDS: ACETAMINOPHEN 325 MG TAB PO PRN ×4 (09:58→22:15)
--- NOTE | 2021-11-11 11:17 | Hospitalist Progress Note ---
Date of Service November 11, 2021 Assessment & Plan (1) Recurrent cellulitis: Plan: Ms. Santana is a 61 y/o female with recurrent lower extremity cellulitis. She was previously on suppressive Abx (Amoxicillin/Augmentin) but this was stopped about 6 months ago with changing ID doctors. She has had recurrent infections since her L TKA in 2015 (group B strep). She had a recent admission for strep pneumoniae presumed from RLE cellulitis - She did start Cefdinir as outpatient due to the LLE area prior to admission - Continue Rocephin and Vancomycin - BCx pending - Consider repeat echo vs consideration for APPLE pending blood cultures in the setting of systolic murmur - ID consultation pending Cx vs reaching out to Dr. Wheeler -- Follows with Dr. 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 - Continue her usual supplementation (5) Systolic murmur: Plan: - Noted - as above - Echo - EF 55-60%; mild concentric L ventricular hypertrophy; L atrium moderately dilated; R ventricular systolic pressure elevated at 30-40 mmHg -- Aortic valv trileaflet with restricted motion of the L coronary cusp with calcification at the commissure of the non and L coronary cusps; no sigifncicant regurg/stenosis -- Pulmonic valve/tricuspid valve not well visutalize but appears grossly normal -- mitral vavle normal with trace regurgitation (6) Parkinson disease: Plan: - Follows with [facility] - Continue Sinemet 1 tab PO TID -- Reports she has been undergoing taper. She is currently on 1 tab TID until Thursday then will increase to 1.5 tabs TID then increase until at 2 tabs TID Plan: - Continue IV Abx and await for clinical improvement and Cx; do not anticipate home needs Admission and Anticipated Discharge Date Admission Date: November 10, 2021 Subjective Reports she is feeling a bit better since admission but still very run down. She feels the RLE cellulitis is a bit worse today compared to when she came in. The spot on her LLE looks a bit better. She denies feeling febrile at this point. She is tolerating a diet. She verbalizes no new complaints at this time. Review of Systems Review of Systems: All systems reviewed & are unremarkable except as noted in Subjective Physical Exam Physical Exam: PHYSICAL EXAM General Appearance: WDWN in NAD who is A&O x 3 HEENT: Head is normocephalic/atraumatic; Hearing grossly intact; Mucous membranes moist Neck: Supple; Trachea midline; Neg JVD; Heart: RRR with murmur Lungs: CTA in all lung sinha bilaterally; Respirations unlabored; Neg accessory muscle use Abdomen: Soft, non-tender, non-distended; Positive BS x 4 quadrants Extremities: RLE with erythema and mild warmth of the anterior johnson about midway up leg with extension to the R calf; 1+ edema; small dry scaling lesion of LLE (medial ankle) Neurological: Speech clear; Gross motor/sensory function intact; Neg focal neurologic deficits; + tremor of bilateral hands Psychiatric: Appropriate mood/affect Skin: Normal Color; Warm/Dry; other than discussed above Results & Data Results & Data ([facility]) Vital Signs (Past 12 Hours) Vital Signs Temp Pulse Resp BP Pulse Ox 11/11/21 07:33 36.8 C 81 18 104/63 94 PG Care Time/CCT Total # of Minutes Spent Total Time Spent with Patient: Total time spent is greater than 50% in coordination of care (as documented) at patient's floor/unit and/or counseling patient: Coding Level of Care Code 70625 Subseq Hosp Care Lvl 3 Diagnoses Recurrent cellulitis L03.90 Onychomycosis of foot with other complication B35.1 Renal mass N28.89 H/O gastric bypass Z98.84 Systolic murmur R01.1 Parkinson disease G20
[2021-11-11] MEDS: cefTRIAXone SODIUM 2,000 MG in DEXTROSE 5% 50 ML IV SCH (14:25)
[2021-11-11] MEDS: MULTIVITAMIN TAB PO SCH (20:25)
[2021-11-11] MEDS: ENOXAPARIN INJ 40 MG/0.4 ML SYR SQ SCH (20:25)
[2021-11-11] MEDS: ASCORBIC ACID 500 MG TAB PO SCH (20:25)
[2021-11-11] MEDS: CHOLECALCIFEROL 5,000 UNITS 125 MCG TAB PO SCH (20:25)
[2021-11-11] MEDS: CYANOCOBALAMIN 500 MCG TABLET (VITAMIN B-12) PO SCH (20:25)
[2021-11-12] MEDS: ACETAMINOPHEN 325 MG TAB PO PRN ×4 (02:18→17:58)
[2021-11-12] MEDS: MAGNESIUM OXIDE 400 MG TAB PO SCH ×2 (07:26→20:20)
[2021-11-12] MEDS: ESCITALOPRAM OXALATE 10 MG TAB PO SCH (07:26)
[2021-11-12] MEDS: KETOCONAZOLE 2% CR 15 GM TUBE EXT SCH ×2 (07:26→20:20)
[2021-11-12] MEDS: CARBIDOPA/LEVODOPA 25/100MG TAB PO SCH ×3 (07:27→20:20)
[2021-11-12] MEDS ORDERED: VANCOMYCIN TROUGH ONE (07:30)
[2021-11-12] MEDS: VANCOMYCIN HCL 1,500 MG in SODIUM CHLORIDE 0.9% 500 ML IV SCH ×2 (07:34→20:19)
[2021-11-12 08:59] LABS: Creatinine Clr Calc Pharmacy 113.6 ml/min; Est GFR (African American) 111.6 ml/min; Est GFR (Non-African American) 96.3 ml/min
--- NOTE | 2021-11-12 10:22 | Pharmacy Report ---
Pharmacy Vanc AUC Short Note - Date of Service November 12, 2021 - Assessment & Plan Assessment 61 year old F receiving Vancomycin and Ceftriaxone for treatment of recurrent RLE cellulitis. * Day #3 of antimicrobial therapy. * Has had recurrent infections since her L TKA in 2014. Recently admitted in August 2021 for Strep pneumoniae in blood cultures. * Primary team reaching out to Dr. Wheeler to get recommendations for abx. Plan Vancomycin * AUC/GIN is the preferred PK/PD target for vancomycin * AUC guided dosing is effective and associated with decreased risk of nephrotoxicity compared to traditional trough targets * Trough level of 14.9 mcg/mL is predicted to achieve target AUC/GIN of 400-600 mg/L.hr and may be associated with a 11% risk of nephrotoxicity * Continue dose of 1500 mg IV every 12 hours * Trough level ordered prior to 0800 dose on 11/14/21 given slightly elevated BMI and risk of accumulation. Ceftriaxone * Continue Ceftriaxone 2000 mg IV every 24 hours Pharmacy will continue to follow and will adjust dose/frequency as necessary. Thank you.
[2021-11-12] MEDS: cefTRIAXone SODIUM 2,000 MG in DEXTROSE 5% 50 ML IV SCH (14:47)
[2021-11-12] MEDS ORDERED: KETOROLAC TROMETHAMINE 15 MG/ML VIAL IV PRN (18:30)
--- NOTE | 2021-11-12 19:17 | Hospitalist Progress Note ---
Date of Service November 12, 2021 Assessment & Plan (1) Recurrent cellulitis: Plan: Ms. Santana is a 61 y/o female with recurrent lower extremity cellulitis. She was previously on suppressive Abx (Amoxicillin/Augmentin) but this was stopped about 6 months ago with changing ID doctors. She has had recurrent infections since her L TKA in 2015 (group B strep). She had a recent admission for strep pneumoniae presumed from RLE cellulitis - She did start Cefdinir as outpatient due to the LLE area prior to admission - Continue Rocephin and Vancomycin -- Discussed with her ID team - plan to convert to Doxycycline and Cefadroxil for 10-14 days total and at least continue Doxy until follow-up Dec 03 -- Given she was on Cefdinir prior to admission - question possible MRSA component? -- Maybe needs suppressive Abx after treatment given recurrence? 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 - Continue her usual supplementation (5) Systolic murmur: Plan: - Noted - as above - Echo - EF 55-60%; mild concentric L ventricular hypertrophy; L atrium moderately dilated; R ventricular systolic pressure elevated at 30-40 mmHg -- Aortic valv trileaflet with restricted motion of the L coronary cusp with calcification at the commissure of the non and L coronary cusps; no sigifncicant regurg/stenosis -- Pulmonic valve/tricuspid valve not well visutalize but appears grossly normal -- mitral vavle normal with trace regurgitation (6) Parkinson disease: Plan: - Follows with [facility] - Continue Sinemet 1 tab PO TID -- Reports she has been undergoing taper. She is currently on 1 tab TID until Thursday then will increase to 1.5 tabs TID then increase until at 2 tabs TID Plan: - Likely convert to oral Abx tomorrow (does not look like we care Cefadroxil but can change to Doxy) - possible D/C tomorrow afteroon vs ; do not anticipate home needs Admission and Anticipated Discharge Date Admission Date: November 10, 2021 Subjective Reports feeling a bit better today. Still having a headache that is band like in the forehead. Participated with PT and reports feeling a bit slow but a little bit better with walking. Erythema and warmth improving but reports some ongoing edema and tightness. Remains afebrile. BCx remain without growth. Review of Systems Review of Systems: All systems reviewed & are unremarkable except as noted in Subjective Physical Exam Physical Exam: PHYSICAL EXAM General Appearance: WDWN in NAD who is A&O x 3 HEENT: Head is normocephalic/atraumatic; Hearing grossly intact; Mucous membranes moist Neck: Supple; Trachea midline; Neg JVD; Heart: RRR with murmur Lungs: CTA in all lung sinha bilaterally; Respirations unlabored; Neg accessory muscle use Abdomen: Soft, non-tender, non-distended; Positive BS x 4 quadrants Extremities: RLE with erythema and minimal warmth of the anterior johnson about midway up leg with extension to the R calf but is reducing around drawn line; 2+ edema; small dry scaling lesion of LLE (medial ankle) with a bit thicker middle but no fluctulance Neurological: Speech clear; Gross motor/sensory function intact; Neg focal neurologic deficits; + tremor of bilateral hands Psychiatric: Appropriate mood/affect Skin: Normal Color; Warm/Dry; other than discussed above Results & Data Results & Data ([facility]) Vital Signs (Past 12 Hours) Vital Signs Temp Pulse Resp BP BP Pulse Ox 11/12/21 15:17 36.7 C 81 18 114/73 95 11/12/21 07:50 36.8 C 66 16 133/73 97 PG Care Time/CCT Total # of Minutes Spent Total Time Spent with Patient: Total time spent is greater than 50% in coordination of care (as documented) at patient's floor/unit and/or counseling patient: Coding Level of Care Code 06692 Subseq Hosp Care Lvl 3 Diagnoses Recurrent cellulitis L03.90 Onychomycosis of foot with other complication B35.1 Renal mass N28.89 H/O gastric bypass Z98.84 Systolic murmur R01.1 Parkinson disease G20
[2021-11-12] MEDS: ENOXAPARIN INJ 40 MG/0.4 ML SYR SQ SCH (20:19)
[2021-11-12] MEDS: MULTIVITAMIN TAB PO SCH (20:19)
[2021-11-12] MEDS: CYANOCOBALAMIN 500 MCG TABLET (VITAMIN B-12) PO SCH (20:20)
[2021-11-12] MEDS: ASCORBIC ACID 500 MG TAB PO SCH (20:20)
[2021-11-12] MEDS: CHOLECALCIFEROL 5,000 UNITS 125 MCG TAB PO SCH (20:20)
[2021-11-13] MEDS: ACETAMINOPHEN 325 MG TAB PO PRN (05:07)
[2021-11-13] MEDS: CARBIDOPA/LEVODOPA 25/100MG TAB PO SCH ×2 (08:04→13:09)
[2021-11-13] MEDS: MAGNESIUM OXIDE 400 MG TAB PO SCH (08:04)
[2021-11-13] MEDS: ESCITALOPRAM OXALATE 10 MG TAB PO SCH (08:04)
[2021-11-13] MEDS: KETOCONAZOLE 2% CR 15 GM TUBE EXT SCH (08:05)
[2021-11-13] MEDS: VANCOMYCIN HCL 1,500 MG in SODIUM CHLORIDE 0.9% 500 ML IV SCH (08:08)
[2021-11-13] MEDS: cefTRIAXone SODIUM 2,000 MG in DEXTROSE 5% 50 ML IV SCH (13:08)
--- NOTE | 2021-11-13 17:36 | Discharge Summary ---
Date of Service November 13, 2021 Admission HPI Per Admitting Provider Renu Santana is a 61 year old female who presents to the ER with fever, chills and concern for right lower extremity cellulitis. She reports symptoms present for the last week progressively getting worse despite relatively quickly being prescribed cefdinir. Despite this her right lower extremity has become more swollen, warm and tender and she has felt increasingly weak. She reports ongoing problems with infections for multiple years (since ) however significant recurrence of cellulitis starting with an infected left total knee arthroplasty in 2014 with Group B strep. She was previously on chronic amoxicillin/augmentin for prophylaxis however this was discontinued 6 months ago after switching infectious disease doctors. She was admitted for strep pneumoniae bacteremia from presumed RLE cellulitis earlier this year in August. In the ER WBC 16.78. Temp 39.1 degrees celsius. She was started on IV vancomycin. Lactate 1.0. She was referred to medicine for admission and ongoing management of cellultitis. Principal Diagnosis RLE Cellulitis Discharge Exam PHYSICAL EXAM General Appearance: WDWN in NAD who is A&O x 3 HEENT: Head is normocephalic/atraumatic; Hearing grossly intact; Mucous membranes moist Neck: Supple; Trachea midline; Neg JVD; Heart: RRR with murmur Lungs: CTA in all lung sinha bilaterally; Respirations unlabored; Neg accessory muscle use Abdomen: Soft, non-tender, non-distended; Positive BS x 4 quadrants Extremities: RLE with erythema and minimal warmth of the anterior johnson about midway up leg with extension to the R calf but is reducing around drawn line; 2+ edema; small dry scaling lesion of LLE (medial ankle) with a bit thicker middle but no fluctulance Neurological: Speech clear; Gross motor/sensory function intact; Neg focal neurologic deficits; + tremor of bilateral hands Psychiatric: Appropriate mood/affect Skin: Normal Color; Warm/Dry; other than discussed above Discharge Data Allergies Allergy/AdvReac Type Severity Reaction Status Date / Time coconut Allergy Intermediate HIVES Verified 11/21/21 11:45 oxaprozin Allergy Unknown Unknown Verified 11/21/21 11:45 Sulfa (Sulfonamide Allergy Unknown PT UNSURE Verified 11/21/21 11:45 Antibiotics) Consultations 11/10/21 12:23 ED Decision to Admit Stat Ordered Studies 11/10/21 11:11 US venous doppler LE RT Stat Hospital Course (1) Recurrent cellulitis: Ms. Santana is a 61 y/o female with recurrent lower extremity cellulitis. She was previously on suppressive Abx (Amoxicillin/Augmentin) but this was stopped about 6 months ago with changing ID doctors. She has had recurrent infections since her L TKA in 2014 (group B strep). She had a recent admission for strep pneumoniae presumed from RLE cellulitis - She did start Cefdinir as outpatient due to the LLE area prior to admission - UTilized Rocephin and Vancomycin -- Discussed with her ID team - plan to convert to Doxycycline and Cefadroxil for 10-14 days total and at least continue Doxy until follow-up Dec 03 -- Given she was on Cefdinir prior to admission - question possible MRSA component? -- Maybe needs suppressive Abx after treatment given recurrence? 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 - Continue her usual supplementation (5) Systolic murmur: - Noted - as above - Echo - EF 55-60%; mild concentric L ventricular hypertrophy; L atrium moderately dilated; R ventricular systolic pressure elevated at 30-40 mmHg -- Aortic valv trileaflet with restricted motion of the L coronary cusp with calcification at the commissure of the non and L coronary cusps; no sigifncicant regurg/stenosis -- Pulmonic valve/tricuspid valve not well visutalize but appears grossly normal -- Mitral vavle normal with trace regurgitation (6) Parkinson disease: - Follows with [facility] - Continue Sinemet 1 tab PO TID -- Reports she has been undergoing taper. She is currently on 1 tab TID until Thursday then will increase to 1.5 tabs TID then increase until at 2 tabs TID - Converted to oral Abx; F/U with her established ID team Total Time Total Time Spent Total Time Spent (In Minutes): Spent greater than 30 minutes preparing patient for discharge. This includes discussion with patient/family, assessment, intervention, medication reconciliation, and coordination of care. Discharge Plan Discharge Items Patient Disposition: Home - Self-Care Reason For Visit: cellulitis Discharge Diagnosis: Cellulitis (Skin Infection) Activity: Resume your previous activity Non-emergency contact: Primary Care Provider Call non-emergency contact if: you have any medication questions, your symptoms worsen and you have a fever Follow-up/Referrals: Inocente Daley MD [Primary Care Provider] - Diet: Regular Addtl Attending Provider Instructions: Recurrent Cellulitis: - You were admitted for a skin infection of the right lower leg. The spot on your left ankle is looking great but should be monitored. - It may take some time for the redness and swelling to go down. Definitely continue to elevate the legs to help facilitate drainage. As the redness improves recommend to continue your compression pumps or tubigrips - Thankfully your blood cultures did not reveal any bacteria - You will continue a course of antibiotics -- Cefadroxil 500 mg twice a day for 14 days. You can start this tomorrow as you had a once a day IV dose today. -- Doxycycline 100 mg twice a day until your follow-up with Infectious Disease - December 03. Start this tomorrow as well. Home Medications: - Continue your home medications as previously prescribed. Pending Studies at Discharge: No Stand-Alone Forms: My [facility] [employer], Smoking Cessation Medications and DC Order Prescriptions: New doxycycline hyclate 100 mg capsule 100 mg PO BID 21 Days Qty: 42 RF: 0 cefadroxil 500 mg capsule 500 mg PO BID 14 Days Qty: 28 RF: 0 Continued escitalopram oxalate [Lexapro] 10 mg tablet 10 mg PO DAILY Qty: 30 RF: 5 cyanocobalamin (vitamin B-12) 1,000 mcg tablet 1,000 mcg PO PM RF: 0 multivitamin tablet 1 tab PO PM RF: 0 ascorbic acid (vitamin C) 500 mg capsule 500 mg PO PM RF: 0 cholecalciferol (vitamin D3) [Vitamin D3] 5,000 unit Tablet 5,000 unit PO PM RF: 0 ibuprofen 600 mg tablet 600 mg PO BID PRN (Reason: pain) RF: 0 ketoconazole 2 % Cream 1 applic EXT BID 28 Days Qty: 60 RF: 1 acetaminophen [Tylenol] 325 mg Tablet 325 mg PO QID PRN (Reason: Pain) RF: 0 ciclopirox 8 % solution 1 applic TOPICAL DAILY RF: 0 Discontinued cefdinir 300 mg capsule 300 mg PO BID 10 Days Qty: 20 RF: 0 No Action carbidopa-levodopa 25-100 mg tablet 1.5 tab PO TID RF: 0 Discharge Orders: Discharge Order (Routine); Ordered 11/13/21 Ordered By: Halie Cedeno Admission Data Admit Date/Time: 11/10/21 13:45 Attending Provider: Patrick Mcbride Admit Provider: Demetrius Amrbose Primary Care Provider: Inocente Daley Other Providers: Demetrius Ambrose Other Interventions: Discharge Summary Assessment (RN) Last Done: 11/13/21 14:42 Supervising Physician Co-Signing Physician Notes Attending note: patient seen and examined with Halie Cedeno PA-C. I agree with her discharge summary. I personally reviewed the labs and imaging findings. patient doing better, redness greatly reduced vitals stable, eating well, breathing well - Cellulitis of lower extremity: responded well to IV antibiotics, convert to Doxycycline and Cefadroxil for 10-14 days, continue doxycycline until follow up with ID Coding Level of Care Code D/C DAY MANAGEMENT >30 MINS Diagnoses Recurrent cellulitis L03.90 Onychomycosis of foot with other complication B35.1 Renal mass N28.89 H/O gastric bypass Z98.84 Systolic murmur R01.1 Parkinson disease G20
[2021-11-14] MEDS ORDERED: VANCOMYCIN TROUGH ONE (07:30)
== END 2021-11-13 17:27 | disposition home or self-care (01) | DRG 603 ==
LOC: ED 10:53 → SUATTDRO 13:45 → EDINP 13:45 → 3E 16:47

== ENCOUNTER 2022-11-25 07:58 | Observation (INO) ==
--- NOTE | 2022-10-27 11:58 | PAT Medication Instructions ---
Medication Instructions Date of Service October 27, 2022 Home Medications Medication Instructions Recorded ketoconazole 2 % topical cream 1 applic EXT BID 4 weeks #60 grams 09/18/21 ciprofloxacin HCl 500 mg tablet 500 mg PO BID 6 days #12 tabs 08/26/22 cyanocobalamin (vitamin B-12) 1,000 mcg tablet 1,000 mcg PO QAM multivitamin 1 tab PO QAM ascorbic acid (vitamin C) 500 mg capsule 500 mg PO QAM cholecalciferol (vitamin D3) 125 mcg (5,000 unit) tablet (Vitamin D3) 5,000 unit PO QAM ibuprofen 600 mg tablet 600 mg PO BID PRN pain ketoconazole 2 % topical cream 1 applic EXT BID 4 weeks acetaminophen 325 mg tablet (Tylenol) 325 mg PO QID PRN Pain ciclopirox 8 % topical solution 1 applic topical DAILY carbidopa 25 mg-levodopa 100 mg tablet 2 tab PO QID ciprofloxacin HCl 500 mg tablet 500 mg PO BID 6 days amoxicillin 875 mg-potassium clavulanate 125 mg tablet 1 tab PO QAM paroxetine HCl 20 mg tablet 20 mg PO QPM rosuvastatin 5 mg tablet 5 mg PO QAM Continue as directed ciprofloxacin HCl 500 mg tablet 500 mg PO BID 6 days amoxicillin 875 mg-potassium clavulanate 125 mg tablet 1 tab PO QAM ASK your surgeon for instructions ibuprofen 600 mg tablet 600 mg PO BID PRN pain STOP taking 24 hours before surgery ketoconazole 2 % topical cream 1 applic EXT BID 4 weeks ciclopirox 8 % topical solution 1 applic topical DAILY DO NOT take the morning of surgery cyanocobalamin (vitamin B-12) 1,000 mcg tablet 1,000 mcg PO QAM multivitamin 1 tab PO QAM ascorbic acid (vitamin C) 500 mg capsule 500 mg PO QAM cholecalciferol (vitamin D3) 125 mcg (5,000 unit) tablet (Vitamin D3) 5,000 unit PO QAM Take morning of surgery With a small sip of water, OTHERWISE NOTHING TO EAT OR DRINK AFTER MIDNIGHT: acetaminophen 325 mg tablet (Tylenol) 325 mg PO QID PRN Pain (if needed) carbidopa 25 mg-levodopa 100 mg tablet 2 tab PO QID rosuvastatin 5 mg tablet 5 mg PO QAM Take evening before surgery acetaminophen 325 mg tablet (Tylenol) 325 mg PO QID PRN Pain (if needed) carbidopa 25 mg-levodopa 100 mg tablet 2 tab PO QID paroxetine HCl 20 mg tablet 20 mg PO QPM Other Notes If you have any questions please call us at [phone] or [phone] or [phone] or [phone]
--- NOTE | 2022-10-29 09:16 | Anesthesiology Consultation ---
Date of Service October 29, 2022 Assessment & Plan (1) Encounter for pre-operative examination: - COVID screening: Per assessment on 10/29: No known COVID-19 positive contacts or current COVID-19 related symptoms. Travel screen negative. Patient vaccinated. At surgeon discretion if preop Covid testing being done. - S/P Right First Metaphalangeal Joint Fusion, Second Hammertoe Correction and Second Metatarsal Shortening Osteotomy With Fixation (07/29/19): LMA#4 at [facility]. No issues noted per post-op anesthesia progress note. - Outpatient joint assessment: Pt currently scheduled for inpatient pathway. If surgeon requests review for outpatient joint pathway, patient is not recommended candidate for outpatient joint program from anesthesia standpoint. - Cardiology office visit (10/29/22): "She is currently stable and asymptomatic from a cardiovascular standpoint with no anginal symptoms occurring at >4 METS of activity. She has no evidence of CHF or significant valvular abnormality. BP is adequately controlled. Given this information, patient is at an acceptable risk to proceed with upcoming surgery without any additional cardiovascular testing or intervention." - Patient acceptable risk for surgery pending surgeon-ordered PCP preop evaluation ([facility], appt 11/14). Chart Review Chart Review: Patient seen in Pre Admission Testing Teaching & Discussion Pre-Anesthesia Teaching/Discussion Notes: Instructed NPO after midnight before surgery,except medications with 15 cc of water. Medication instructions provided according to the PAT guidelines. History Surgery Operation Date: 11/25/22 10:20 Proposed Procedures p Right Total Knee Arthroplasty - Casey Tim Fuller MD Height/Weight Height: 5 ft 6 in Weight: 121.7 kg Allergies Allergy/AdvReac Type Severity Reaction Status Date / Time coconut Allergy Intermediate Hives Verified 10/29/22 10:47 oxaprozin Allergy Unknown Unknown Verified 10/29/22 10:47 Sulfa (Sulfonamide Allergy Unknown Unknown Verified 10/29/22 10:47 Antibiotics) Medications Home Medications Medication Instructions Recorded Confirmed Last Taken cyanocobalamin (vitamin B-12) 1,000 mcg PO QAM 05/17/19 10/29/22 09/11/21 1,000 mcg tablet multivitamin 1 tab PO QAM 05/17/19 10/29/22 09/11/21 ascorbic acid (vitamin C) 500 mg 500 mg PO QAM 06/08/19 10/29/2209/11/21 capsule cholecalciferol (vitamin D3) 125 5,000 unit PO QAM 06/20/19 10/29/22 09/11/21 mcg (5,000 unit) tablet (Vitamin D3) ibuprofen 600 mg tablet 600 mg PO BID PRN pain 12/08/19 10/29/22 05/21/20 14:00 600 mg ketoconazole 2 % topical cream 1 applic EXT BID 4 weeks #60 grams 09/18/21 10/29/22 Unknown acetaminophen 325 mg tablet 325 mg PO QID PRN Pain 11/10/21 10/29/22 11/10/21 (Tylenol) ciclopirox 8 % topical solution 1 applic topical DAILY 11/10/21 10/29/22 11/09/21 carbidopa 25 mg-levodopa 100 mg 2 tab PO QID 08/19/22 10/29/22 Unknown tablet ciprofloxacin HCl 500 mg tablet 500 mg PO BID 6 days #12 tabs 08/26/22 10/29/22 Unknown amoxicillin 875 mg-potassium 1 tab PO QAM 10/24/22 10/29/22 Unknown clavulanate 125 mg tablet paroxetine HCl 20 mg tablet 20 mg PO QPM 10/24/22 10/29/22 Unknown rosuvastatin 5 mg tablet 5 mg PO QAM 10/24/22 10/29/22 Unknown Past Medical History Medical History Chronic back pain Degenerative disc disease History of asthma stable History of depression History of hyperlipidemia History of migraine headaches History of sleep apnea Does not use device since weight loss Pt had updating sleep study > no device recommended Morbid obesity with BMI of 40.0-44.9, adult Osteopenia of lumbar spine Parkinson disease Recurrent cellulitis RLE (most recent flare 10/2021) Renal mass Rt - [facility] nephrology monitoring Exercise / Class Metabolic Activity II 4-5 Yardwork/Stairs/Walk up hill Past Family History Family History Father Cardiac disorder Myocardial infarction Grandfather Heart disease Mother Diabetes Chronic kidney disease NKF Classification Breast cancer Stroke syndrome Hypertension Heart disease Stroke Sister Ovarian cancer Diabetes Valvular heart disease Atrial fibrillation Cardiomyopathy Malignant neoplasm of uterus Slow to wake up after anesthesia Breast cancer Grandmother Diabetes Hypertension Daughter Endometriosis Uncle Myocardial infarction Grandmother (Maternal) No problems noted. Denies family history of Prostate cancer Lung cancer Colorectal cancer Past Surgical History Surgical History H/O gastric bypass History of 2 sections History of bunionectomy History of cardiac cath 2009 > no stents History of colonoscopy History of D&C History of eye surgery x3 History of foot surgery History of hammertoe correction Right First Metaphalangeal Joint Fusion, Second Hammertoe Correction and Second Metatarsal Shortening Osteotomy With Fixation (07/29/19): LMA#4 at [facility]. No issues noted per post-op anesthesia progress note. History of hernia repair x2 UMBILICAL History of left knee replacement History of ovarian cystectomy History of revision of total replacement of left knee joint History of wisdom tooth extraction Nausea and vomiting after administration of anesthetic agent Past Anesthesia History No Hx of Anesthesia Complications (except remote PONV) and No Family Hx of Anesthesia Complications (except mother PONV) History of PONV No Hx of Motion Sickness and History of PONV (Remote) Social History Smoking Status: Former smoker tobacco type: cigarettes Do You Dip or Chew Tobacco: No Smoking End Date: Quit 15 years ago Hx Alcohol Use: Yes Alcohol type: wine alcohol intake frequency: holidays/special occasions only Hx Substance Use: No substance use type: does not use Review of Systems Patient denies chest pain, shortness of breath, dyspnea on exertion, fever, chills, cough, wheezing, palpitations. Physical Exam Vital Signs VITALS BP 129/79 P 66 TEMP 98.6 SP02 98%RA RESP 18 PHYSICAL Full cervical extension range of motion. Full TMJ range of motion. TMD 3 finger breaths Mallampati Score 2 Dentition: upper partial Lungs: clear throughout to auscultation Cardiac: regular rate and rhythm, I-II/ systolic murmur Spine: normal Carotid arteries: negative bruit Extremities: no edema Lab Results Anesthesia Preop Results Results Anesthesia Widget: WBC 4.42 K/ul (4.8-10.8) L 10/29/22 Hgb 13.3 g/dl (12.0-16.0) 10/29/22 Hct 41.0 % (34.1-44.9) 10/29/22 Plt 244 K/uL (130-400) 10/29/22 Na 141 mmol/L (136-145) 10/29/22 K 4.1 mmol/L (3.5-5.1) 10/29/22 Cl 108 mmol/L (98-107) H 10/29/22 CO2 28 mmol/L (21-32) 10/29/22 BUN 15 mg/dl (6-23) 10/29/22 Creat 0.55 mg/dl (0.6-1.2) L 10/29/22 Glucose Level 73 mg/dl (70-99(Fasting)) 10/29/22 PT 10.7 Seconds (9.0-12.0) 10/29/22 PTT 28.8 Seconds (21.0-31.0) 10/29/22 INR 1.0 (0.9-1.1) 10/29/22 Urine Color Yellow 10/29/22 Urine Appearance Clear (Clear) 10/29/22 Urine pH 6.0 (4.5-7.5) 10/29/22 Urine Specific [place] 1.023 (1.000-1.030) 10/29/22 Urine Protein Negative (Negative) 10/29/22 Urine Glucose (UA) Negative (Negative) 10/29/22 Urine Ketones Trace (Negative) H 10/29/22 Urine Blood Negative (Negative) 10/29/22 Urine Nitrite Negative (Negative) 10/29/22 Urine Bilirubin Negative (Negative) 10/29/22 Urine Urobilinogen Negative (Negative) 10/29/22 Urine Leukocyte Esterase Negative (Negative) 10/29/22 Blood Type O Positive 10/29/22 Antibody Screen NEGATIVE 10/29/22 Testing Electrocardiogram Date: 10/29/22 NSR at 67bpm. Chest X-Ray Date: 10/29/22 Findings: + NAD Echocardiogram Date: 09/13/21 EF 55-60%. No RWMA. Mild cLVH. Restriction left coronary cusp with calcification at the commissure of the non and left coronary cusps. There is no significant aortic regurgitation or stenosis. RVSP elevated at 30-40mmhg. Stress Test Date: 07/17/20 Type: DSE Normal pharmacologic stress echocardiogram. No echo or ECG evidence of myocardial ischemia having achieved heart rate adequate for diagnostic purposes. 86% MPHR. EF 60-65%. Mild MR. COVID-19 Risk Screen Screening Information COVID-19 Screen Date: 10/29/22 Exposure 21 Days Family/Household +COVID Last 21 Days: No Exposure 10 Days Any COVID Exposure Last 10 Days: No Symptoms Last 10 Days Experienced COVID Sx Last 10 Days: No + COVID 0-90 Days COVID + in Last 0-90 Days: No
[~2022-11-25 07:58] MED LIST changes: +ACETAMINOPHEN 500 MG TAB PO SCH; -AMOX500C3 PO; +BUPIVACAINE 0.5 % 5 MG/1 ML PF 10ML VIAL ONE; +BUPIVACAINE 0.75% INFIL SCH; -CHOL1CAP57 PO; -CYAN100020 PO; +CeleBREX 200 MG CAP PO SCH; -DTRSR/10 PO; +EPINEPHRINE INFIL SCH; +EPINEPHrine INJ 1 MG/ML AMP ONE; -FLUC100T4 PO; +HCL INFIL SCH; +LR 500ML BOLUS, THEN 15ML/HR IV SCH; +LR 60ML/HR IV SCH; +MIDAZOLAM HCL 1 MG/ML 2ML VIAL ONE; -MULT-506 PO; -OXYC-90 PO; +ROPIVACAINE 0.5% 5 MG/ML 30 ML VIAL ONE; +ROPIVACAINE 0.5% INFIL SCH; +Scopolamine 1 MG TDSY TD SCH; +TRANEXAMIC ACID 1,000 MG **IV Intra-op IV SCH; +TRANEXAMIC ACID 1,000 MG **IV Pre-op IV SCH; +[UNRECOGNIZED DRUG - OTHER] INFIL SCH; +fentaNYL citrate 100 MCG/2 ML VIAL ONE
[2022-11-25] MEDS: ALLERGY Noted to ORDERED Medication SCH ×4 (09:51→14:40)
[2022-11-25] MEDS ORDERED: VANCOMYCIN HCL 1000MG/20ML VIAL ONE (09:51)
[2022-11-25] MEDS ORDERED: Nursing to Pharmacy Communication SCH (10:00)
--- NOTE | 2022-11-25 10:02 | History & Physical Bridge Note ---
Date of Service November 25, 2022 History & Physical Bridge Note I have examined the patient, reviewed the History & Physical and in the interval since the performance of the History & Physical I have noted the following changes of clinical significance: She has been taking Augmentin 875 mg BID for the last week and ID recommends continuing for 1 week post-op; she will then resume her regular daily dose. Patient is aware of the risks, is asymptomatic, and tested negative for COVID- 19.
[2022-11-25] MEDS ORDERED: PHENYLEPHRINE HCL 10 MG/ML VIAL ONE (11:08)
[2022-11-25] MEDS ORDERED: ePHEDrine sulfate 50 MG/ML SYR ONE (11:08)
[2022-11-25] MEDS ORDERED: PROPOFOL IV EMULSION 10 MG/ML 20 ML VIAL IV ONE ×2 (11:08→12:00)
[2022-11-25] MEDS ORDERED: LIDOCAINE 2% MPF LOCAL 5 ML VIAL INFIL ONE (11:08)
[2022-11-25] MEDS ORDERED: ONDANSETRON INJ 2 MG/ML 2 ML VIAL ONE (11:08)
[2022-11-25] MEDS ORDERED: PROMETHAZINE HCL 12.5 MG in SODIUM CHLORIDE 0.9% 50 ML IV PRN (12:10)
[2022-11-25] MEDS ORDERED: ONDANSETRON INJ 2 MG/ML 2 ML VIAL IV PRN ×2 (12:10→14:35)
[2022-11-25] MEDS ORDERED: FLUMAZENIL 0.1 MG/1 ML 10 ML VIAL IV PRN (12:10)
[2022-11-25] MEDS ORDERED: NALOXONE HCL 0.4 MG/1 ML VIAL/CARP IV PRN ×2 (12:10→14:35)
[2022-11-25] MEDS ORDERED: HYDROmorphone INJ 1 MG/ML SYRINGE IV PRN (12:10)
[2022-11-25] MEDS ORDERED: ePHEDrine sulfate 50 MG/ML AMP IV PRN (12:10)
[2022-11-25] MEDS ORDERED: fentaNYL citrate 100 MCG/2 ML VIAL IV PRN (12:10)
[2022-11-25] MEDS ORDERED: ATROPINE SULFATE 0.1 MG/ML 10ML SYR IV PRN (12:10)
--- NOTE | 2022-11-25 12:58 | Post Operative Brief Note ---
Immediate Post Op Note v1 Date of Surgery November 25, 2022 Pre & Post Diagnosis Operation Date: 11/25/22 10:20 Pre-Op Diagnosis: Right Knee Osteoarthritis Post-Op Diagnosis: Right Knee Osteoarthritis I identified the patient and participated in the time-out.: Yes Procedure Operation Date: 11/25/22 10:20 Actual Procedures p Right Total Knee Arthroplasty, Cemented(Right) - Casey Fuller MD Surgeon Casey Fuller MD Solar Installer Technician Trixie Dowd PA-C (No fellow avail) Estimated Blood Loss 100 Findings Consistent with Post-Op Diagnosis Fluids 1300 cc Specimens Right knee contents Drains Other (Prevena) Complications none
--- NOTE | 2022-11-25 12:59 | Operative Report ---
Post Operative Report Pre & Post Diagnosis Operation Date: 11/25/22 10:20 Pre-Op Diagnosis: Right Knee Osteoarthritis Post-Op Diagnosis: Right Knee Osteoarthritis I identified the patient and participated in the time-out.: Yes Procedure Operation Date: 11/25/22 10:20 Actual Procedures p Right Total knee replacement, imageless computer assisted navigation, Cemented (Right) - Casey Fuller MD Surgeon Casey Fuller MD Lead Architect Trixie Dowd PA-C (No fellow avail) Estimated Blood Loss 100 Findings See Below Examined Under Anesthesia: ROM -- There was 10 degrees to 100 degrees of flexion Ligamentous examination -- revealed stable David, posterior drawer, varus and valgus stress at 0 and 30 degrees. [place] Type IV changes of Tri-compartments, marginal osteophytes, loose body in the intercondylar notch. Fluids 1300 cc Specimens Right knee contents Drains Prevena Anesthesia Type MAC Spinal Regional Complications none Indications This is a 62-year-old female who has clinical and radiographic findings consistent with osteoarthritis of the a right knee that has failed conservative treatment. I recommended that a right total knee replacement be performed. The patient understands the risks of surgery, which include but not limited to: bleeding, infection, re-operation, damage to nerves and arteries, continued knee pain, knee stiffness, DVT, and . The patient understands all of these instructions and explanations, all of his questions have been satisfactorily addressed and the patient has elected to proceed. Informed consent was signed. Description of Procedure IMPLANTS: 1. Femur: Triathlon #5 Right PS. 2. Tibia: Triathlon #5 [place] with 12 x 50 mm stem. 3. Insert: Triathlon #5 x 9 mm PS X3 poly. 4. Patella: Triathlon A32 x 10 mm X3 poly. 5. Palacos G + 2g Vancomycin cement. Trixie Dowd PA-C is assisting with positioning, retracting, and closure due to fellow not available. Procedure: The patient was taken to the Operating Room and placed in the supine position after spinal and adductor canal nerve block was administered. My initials and a multidisciplinary time-out were used to identify the right leg as the correct operative limb. A tourniquet was placed high in the thigh. Prior to the incision, 3 grams of intravenous Ancef were given. The right leg was then prepped and draped in a standard sterile fashion. An Esmarch was used to exsanguinate the leg and the tourniquet was inflated to 300 mmHg. The planned mid-line 24 cm incision was created exposing the extensor mechanism. The medial parapatellar arthrotomy was made and the patella was everted. The patella was addressed first. It was prepared by reaming from 21 mm down to 12 mm. An A32 button was found to fit best. The peg holes were made in the standard fashion. The femur was addressed next and using computer assisted OrthoAlign with 3 degrees of flexion and 0 degrees of valgus, removing 10 mm in the standard fashion for the distal cut. The cut was made and the 4-in-1 cutting block for a size 5 femur was placed. These cuts and the cuts to place the box were made in the standard fashion. Our attention was then drawn to the tibia cut with using imageless computer assisted OrthoAlign, taking 2 mm from the medial low side. There was sufficient extension and flexion gap to fit a 9 mm spacer. A #5 Tibial baseplate fit well. A trial with a 9 mm spacer showed excellent stability in both flexion and extension, with good ligament balance, and thumbs free patellar tracking. Range of motion of 0-120 degrees. The tibial baseplate was prepped for the keel and stem. A stem was used due to some areas of soft bone, to avoid subsidence. All components were removed. All surfaces were copiously irrigated prior to placement of the components. The femoral component followed by Tibial baseplate were cemented in place and the 9 mm X3 poly was placed. Next, the patellar button was placed using the same cement. Once the cement had cured, the range of motion and stability were unchanged. The tourniquet was deflated. Hemostasis was obtained. 90 ml of total knee cocktail were injected into the soft tissues and periosteum. The extensor mechanism was closed with 1-0 Vicryl and 0 Stratafix with the knee bent approximately 60 degrees in a standard fashion. The peritenon and deep fascia was closed with 2-0 Vicryl. The subcutaneous layer was closed with 3-0 Vicryl. The skin was closed with Britton. The limb was cleaned and dried. A Prevena was placed over top followed by sterile Webril, and a foot to thigh Kasi bandage. The patient was then transferred to the Recovery Room in stable condition. The sponge and needle counts were correct. POST-OP INSTRUCTIONS: The patient will be WBAT. The patient will be admitted to the hospital. Labs will be obtained during the stay. DVT prophylaxis will included aspirin for 6 weeks, TEDs, and mechanical foot pumps. The patient will haave 24 hours on IV ANcef and will increase her usual Agmentin to twice a day for 1 week per ID. The dressing will be changed to a Silverlon dressing in 1 week. I attest to the content of the Intraoperative Record and any orders documented therein. Any exceptions are noted below.
--- NOTE | 2022-11-25 13:05 | Operative Report ---
Post Operative Report Pre & Post Diagnosis Operation Date: 11/25/22 10:20 Pre-Op Diagnosis: Right Knee Osteoarthritis Post-Op Diagnosis: Right Knee Osteoarthritis I identified the patient and participated in the time-out.: Yes Procedure Operation Date: 11/25/22 10:20 Actual Procedures p Right Total Knee Arthroplasty, Cemented(Right) - Casey Fuller MD Surgeon Casey Fuller MD Makeup Sales Consultant Trixie Dowd PA-C (No fellow avail) Estimated Blood Loss 100 Findings Consistent with Post-Op Diagnosis Specimens none Complications none Disposition Accompanied Patient To Recovery: No Description of Procedure I was present during whole case. I assisted positioning patient, draping, retracting, holding leg, wound closure, and dressing application. No fellow was available for case. I attest to the content of the Intraoperative Record and any orders documented therein. Any exceptions are noted below.
--- NOTE | 2022-11-25 14:11 | Anesthesiology Progress Note ---
Date of Service November 25, 2022 Anesthesia Post Procedure Vital Signs Vital Signs: Temp Pulse Pulse Resp BP BP Pulse Ox 11/25/22 14:00 36.5 C 57 L 16 128/66 96 11/25/22 13:50 58 L 18 122/76 98 11/25/22 13:40 61 18 118/72 98 11/25/22 13:30 62 18 101/61 100 11/25/22 13:20 63 20 104/64 96 11/25/22 13:10 60 18 109/61 96 11/25/22 13:02 36.6 C 63 16 122/70 96 11/25/22 08:25 36.7 C 78 20 122/80 95 O2 Del Method 11/25/22 14:00 Room Air 11/25/22 13:50 Room Air 11/25/22 13:40 Room Air 11/25/22 13:30 Room Air 11/25/22 13:20 Room Air 11/25/22 13:10 Room Air 11/25/22 13:02 Room Air 11/25/22 08:25 Pain Intensity Right Knee: Pain Intensity: 4 Transfer of Care Handoff Completed per policy Notes Mental Status: alert / awake / arousable Patient Amnestic to Procedure: Yes Nausea / Vomiting: adequately controlled Pain: adequately controlled Airway Patency, RR, SpO2: stable & adequate BP & HR: stable & adequate Hydration State: stable & adequate Neuraxial Anesthesia: was administered and sensory block is resolving Anesthetic Complications: no major complications apparent
--- NOTE | 2022-11-25 14:32 | XRay Report ---
TWO VIEWS RIGHT KNEE CLINICAL HISTORY: Postoperative examination. FINDINGS: AP and crosstable lateral portable views of the right knee are obtained. A right knee arthr oplasty is in near anatomic alignment. There has been undersurface remodeling of the patella. No acut e fracture is seen. There are expected postoperative changes around the knee including skin clips, so ft tissue edema, and subcutaneous gas. IMPRESSION: Expected postoperative changes status post right knee arthroplasty. No acute fracture is seen. ACT 112: Negative or not required by law. Electronically signed by: Solis Pa M.D. 11/25/2022 2:30 PM
[2022-11-25] MEDS ORDERED: MAGNESIUM HYDROXIDE SUSP 30 ML UDC PO PRN (14:35)
[2022-11-25] MEDS ORDERED: bisacodyL 10 MG SUPP PR PRN (14:35)
[2022-11-25] MEDS: HYDROmorphone INJ 0.5 MG/0.5 ML SYR IV PRN ×2 (15:08→23:16)
[2022-11-25] MEDS: SODIUM CHLORIDE 0.9% 1000ML 1,000 ML IV SCH (15:19)
[2022-11-25] MEDS: Scopolamine CHECK PATCH PLACEMENT SCH ×2 (16:33→23:16)
[2022-11-25] MEDS: CARBIDOPA/LEVODOPA 25/100MG TAB PO SCH ×2 (16:33→20:32)
[2022-11-25] MEDS: oxyCODONE HCL IR 5 MG TAB (IMMEDIATE RELEASE) PO PRN ×2 (16:37→20:37)
[2022-11-25] MEDS: ceFAZolin 2000MG 2,000 MG/15 ML SYR IV SCH (18:33)
[2022-11-25] MEDS: AMOXICILLIN/CLAVULANATE 875 MG TAB PO SCH (20:31)
[2022-11-25] MEDS: ASPIRIN 81 MG ECTAB PO SCH (20:32)
[2022-11-25] MEDS: DOCUSATE SODIUM 100 MG CAP PO SCH (20:32)
[2022-11-25] MEDS: PARoxetine HCL 20 MG TAB PO SCH (20:33)
[2022-11-25] MEDS: SENNA 8.6 MG TAB PO SCH (20:33)
[2022-11-25] MEDS: KETOCONAZOLE 2% CR 15 GM TUBE EXT SCH (20:33)
[2022-11-26] MEDS: SODIUM CHLORIDE 0.9% 1000ML 1,000 ML IV SCH (01:19)
[2022-11-26] MEDS: oxyCODONE HCL IR 5 MG TAB (IMMEDIATE RELEASE) PO PRN ×5 (01:19→20:34)
[2022-11-26] MEDS: ceFAZolin 2000MG 2,000 MG/15 ML SYR IV SCH (03:02)
--- NOTE | 2022-11-26 07:36 | Hospitalist Consultation ---
Date of Consultation November 26, 2022 Assessment & Plan (1) Osteoarthritis of right knee: Post op day #1 Right TKA pain medication per ortho (2) Systolic murmur: Known murmur Last echo 09/12 EF 55-60% (3) PATRICK (obstructive sleep apnea): CPAP at night (4) Hyperlipidemia: Rosuvastatin 5mg q hs Can resume upon discharge (5) Left carotid bruit: Known Carotid doppler normal in 2019 Per patient was started on Statin at that time (6) Multinodular goiter: Last thyroid u/s with no change in 09/13 (7) Parkinson disease: Stable continue Carbidopa/levodopa 25/100 (8) H/O gastric bypass: B12 deficient on replacement Continue MTV upon discharge (9) Vitamin B12 deficiency: Continue replacement (10) Adult situational stress disorder: Cont Paxil 20 mg daily Plan Patient is stable from a medical standpoint and tolerating diet Discussed good bowel regimen with patient Continue Senna and if no BM instructed to use miralax 17 gm as needed Continue therapy and directions for post op care per ortho ASA 81 mg daily with food x 6 weeks per ortho Resume statin upon discharge Continue all other home medications Medicine will sign off, please message if any questions or concerns Ok for discharge when orthopedically stable Supervising Physician Co-Signing Physician Notes PA Supervision Note: I personally saw and examined the patient. I verified all murillo points and agree with RIMMA Garcia with the following exceptions and/or additions: Subjective: 62 yo F Hx Parkinson's disease, B12 deficiency anemia, OA right knee, PATRICK admitted for right TKA by Dr. Fuller, performed 11/25/22. Doing well from orthopedic perspective, with right knee pain and stiffness, otherwise feels well without complaints. Physical exam: Vitals reviewed Gen: Alert and oriented, NAD CV: RRR no cardiac murmurs, normal S1/S2 Pulm: CTAB no wheezes or crackles Abd: +BS soft NT ND no masses Ext: no edema, 2+ DP pulses Skin: no rashes, warm/dry Neuro: No focal neurologic deficits, some chronic dysarthria Labs, Rads, and ECG reviewed Assessment and Plan: Right knee OA s/p right TKA: s/p right TKA 11/25/22, PT in house and on discharge. Orthopedic care per Dr. Fuller, as well as pain control and DVT ppx with aspirin 81 daily for 6 weeks. On chronic Augmentin, did recommend she take probiotic daily with this. B12 anemia: known Hx b12 deficiency, Hgb 11.6 today but is post-op, do not have baseline to compare. Follow up with PCP regarding anemia and care of B12 deficiency. Can resume all home medications. Medicine will sign off, please reach out for any questions or if new concerns arise. History of Present Illness Reason for Consultation: Medical management Requesting Physician: Casey Fuller MD Attending Physician: Casey Fuller MD History of Present Illness Renu Santana is a 62 year old female with past medical history of Parkinson Disease, Hyperlipidemia, OA, Depression, Vitamin B12 deficiency, osteopenia, history of a carotid bruit (with normal carotid doppler in 2018) and heart murmur (with echo in 09/12) who presented to the hospital yesterday for right knee replacement. Patient tells me that she had left knee replacement in 2011 and then an infection and revision in 2014. She denies any chest pain, SOB, abdominal pain, nausea, vomiting. Patient is post op day #1 s/p right TKA. Patient is tolerating a regular diet. She is awake and sitting up in the recliner in NAD. She states she has some soreness to the knee. Currently patient has JOCELYN hose in place and foot pumps in place. She was started on ASA 81 mg for 6 weeks by ortho. VSS. CBC and BMP are essentially normal. Allergies Allergy/AdvReac Type Severity Reaction Status Date / Time coconut Allergy Intermediate Hives Verified 11/25/22 08:20 oxaprozin Allergy Unknown Unknown Verified 11/25/22 08:20 Sulfa (Sulfonamide Allergy Unknown Unknown Verified 11/25/22 08:20 Antibiotics) Home Medications Medication Instructions Recorded Confirmed Type cyanocobalamin (vitamin B-12) 1,000 mcg PO QAM 05/17/19 11/25/22 History 1,000 mcg tablet multivitamin 1 tab PO QAM 05/17/19 11/25/22 History ascorbic acid (vitamin C) 500 mg 500 mg PO QAM 06/08/19 11/25/22 History capsule cholecalciferol (vitamin D3) 125 5,000 unit PO QAM 06/20/19 11/25/22 History mcg (5,000 unit) tablet (Vitamin D3) ibuprofen 600 mg tablet 600 mg PO BID PRN pain 12/08/19 11/25/22 History ketoconazole 2 % topical cream 1 applic EXT BID 4 weeks #60 grams 09/18/21 11/25/22 Rx acetaminophen 325 mg tablet 325 mg PO QID PRN Pain 11/10/21 11/25/22 History (Tylenol) ciclopirox 8 % topical solution 1 applic topical DAILY 11/10/21 11/12/22 History carbidopa 25 mg-levodopa 100 mg 2 tab PO QID 08/19/22 11/25/22 History tablet amoxicillin 875 mg-potassium 1 tab PO QAM 10/24/22 11/25/22 History clavulanate 125 mg tablet paroxetine HCl 20 mg tablet 20 mg PO QPM 10/24/22 11/25/22 History rosuvastatin 5 mg tablet 5 mg PO QAM #90 tabs 11/25/22 Rx Patient History Medical History (Updated 11/26/22 @ 08:52 by Casey Fuller MD) Chronic back pain Degenerative disc disease History of asthma stable History of depression History of hyperlipidemia History of migraine headaches History of sleep apnea Does not use device since weight loss Pt had updating sleep study > no device recommended Morbid obesity with BMI of 40.0-44.9, adult Osteoarthritis of right knee Osteopenia of lumbar spine Parkinson disease Recurrent cellulitis RLE (most recent flare 10/2021) Renal mass Rt - [facility] [place] nephrology monitoring Surgical History H/O gastric bypass History of 2 sections History of bunionectomy History of cardiac cath 2009 > no stents History of colonoscopy History of D&C History of eye surgery x3 History of foot surgery History of hammertoe correction Right First Metaphalangeal Joint Fusion, Second Hammertoe Correction and Second Metatarsal Shortening Osteotomy With Fixation (07/29/19): [place] [facility] [place] No issues noted per post-op anesthesia progress note. History of hernia repair x2 UMBILICAL History of left knee replacement History of ovarian cystectomy History of revision of total replacement of left knee joint History of wisdom tooth extraction Nausea and vomiting after administration of anesthetic agent Family History Father Cardiac disorder Myocardial infarction Grandfather Heart disease Mother Diabetes Chronic kidney disease NKF Classification Breast cancer Stroke syndrome Hypertension Heart disease Stroke Sister Ovarian cancer Diabetes Valvular heart disease Atrial fibrillation Cardiomyopathy Malignant neoplasm of uterus Slow to wake up after anesthesia Breast cancer Grandmother Diabetes Hypertension Daughter Endometriosis Uncle Myocardial infarction Grandmother (Maternal) No problems noted. Denies family history of Prostate cancer Lung cancer Colorectal cancer Social History Smoking Status: Former smoker Smoking End Date: Quit 15 years ago; Second Hand Exposure: No ( A CHILD); Do You Dip or Chew Tobacco: No; Tobacco Cessation Education Requested by Patient: No Hx Alcohol Use: Yes Alcohol type: wine Alcohol Intake Frequency: Monthly or Less Hx Substance Use: No Preferred Language: Tajik Communication Ability: Effective Visual Impairment: Limited Hearing Ability: Normal Acid Bleacher Required: No Beliefs That Will Affect Care: None marital status: Life Partner Current Living Situation: Significant Other current occupational status: disabled current occupation: [employer]) How many Children do You have: 2 Feels Safe at Home: Yes Safety Concerns: Feels Safe At This Time Childhood Exposure to Second-Hand Smoke: Yes caffeine: Yes Dental Care, Regularly: Yes Physical Activity Frequency: Does not Exercise Seatbelt Use: always Sunscreen Use: Yes Assistive Devices: Cane and Walker Assistive Devices Comment: upper partial Review of Systems Constitutional: + fatigue; no fever, no chills and no sweats Respiratory: no cough, no chest congestion, no dyspnea and no hemoptysis Cardiovascular: no chest pain, no orthopnea, no syncope and no calf pain Gastrointestinal: no abdominal pain, no nausea, no vomiting and no constipation Genitourinary: + urinary incontinence; no dysuria, no urinary frequency and no hematuria Musculoskeletal: + joint pain and + stiffness; no back pain and no neck pain Integumentary: no rash, no lesions and no new lesions Neurologic: + tremor(s); no falls, no paresthesia, no seizure-like activity and no headache(s) Psychiatric: + anxiety; no hopelessness, no panic attacks and no confusion Physical Exam Constitutional: WD/WN, vitals as above Neck: Thyroid: + thyromegaly and + thyroid nodule Respiratory: normal respiratory effort, lungs clear to auscultation Cardiovascular: Rate/Rhythm: regular rate and regular rhythm Heart Sounds: normal S1, normal S2 and + murmur radiation of murmur to left carotid Gastrointestinal (Abdomen): normal bowel sounds, soft, nontender, no hepatosplenomegaly Skin: no rashes, warm and dry Neurologic: PERRL, EOMI, accommodation nl, no face palsy, no dysarthria Psychiatric: A+Ox3, euthymic affect Results & Data Results & Data ([facility]) Vital Signs (Past 12 Hours) Vital Signs Temp Pulse Resp BP Pulse Ox O2 Del Method 11/26/22 04:00 37.2 C 64 18 118/69 96 Room Air 11/25/22 20:30 Room Air 11/25/22 22:34 36.9 C 60 18 125/73 98 Room Air Laboratory Results Abnormal lab results 11/26/22 11/26/22 Range/Units 07:09 07:09 RBC 3.81 L (3.93-5.22) M/uL Hgb 11.6 L (12.0-16.0) g/dl Sodium 135 L (136-145) mmol/L Creatinine 0.57 L (0.6-1.2) mg/dl BUN/Creatinine Ratio 21.1 H (10-20) Glucose 126 H (70-99(Fasting)) mg/dl Calcium 8.0 L (8.5-10.1) mg/dl PG Care Time/CCT Total # of Minutes Spent Total Time Spent with Patient: Total time spent is greater than 50% in coordination of care (as documented) at patient's floor/unit and/or counseling patient: Coding Level of Care Code INP/OBS CONSULT LVL 3, 45 MIN Diagnoses Osteoarthritis of right knee M17.11 Systolic murmur R01.1 PATRICK (obstructive sleep apnea) G47.33 Hyperlipidemia E78.5 Left carotid bruit R09.89 Multinodular goiter E04.2 Parkinson disease G20 H/O gastric bypass Z98.84 Vitamin B12 deficiency E53.8 Adult situational stress disorder F43.20 Time Spent (min) 35
[2022-11-26 07:48] LABS: Hematocrit (blood only) 34.9 % (34.1-44.9); Hemoglobin 11.6 g/dl (12.0-16.0); Mean Corpuscular Hemoglobin 30.4 pg (25.0-34.0); Mean Corpuscular Hgb Conc 33.2 g/dL (32.0-36.0); Mean Corpuscular Volume 91.6 fL (80.0-100.0); Mean Platelet Volume 10.2 fL (9.4-12.3); Platelet Count 211 K/uL (130-400); RDW Coefficient of Variation 13.2 % (11.5-14.5); Red Blood Count 3.81 M/uL (3.93-5.22); White Blood Count 8.04 K/ul (4.8-10.8)
[2022-11-26 08:19] LABS: BUN Creatinine Ratio 21.1 (10-20); Creatinine Clr Calc Pharmacy 138.3 ml/min; Est GFR (African American) 115.2 ml/min; Est GFR (Non-African American) 99.4 ml/min; Potassium 4.2 mmol/L (3.5-5.1)
[2022-11-26] MEDS: CYANOCOBALAMIN (B-12) 500 MCG TABLET PO SCH (08:29)
[2022-11-26] MEDS: HYDROmorphone INJ 0.5 MG/0.5 ML SYR IV PRN ×2 (08:29→17:11)
[2022-11-26] MEDS: Scopolamine CHECK PATCH PLACEMENT SCH ×2 (08:29→17:09)
[2022-11-26] MEDS: ROSUVASTATIN CALCIUM 5 MG TAB PO SCH (08:30)
[2022-11-26] MEDS: ASCORBIC ACID 500 MG TAB PO SCH (08:30)
[2022-11-26] MEDS: MULTIVITAMIN TAB PO SCH (08:30)
[2022-11-26] MEDS: DOCUSATE SODIUM 100 MG CAP PO SCH ×2 (08:31→20:31)
[2022-11-26] MEDS: AMOXICILLIN/CLAVULANATE 875 MG TAB PO SCH ×2 (08:31→20:30)
[2022-11-26] MEDS: CARBIDOPA/LEVODOPA 25/100MG TAB PO SCH ×4 (08:31→20:30)
[2022-11-26] MEDS: ASPIRIN 81 MG ECTAB PO SCH ×2 (08:31→20:30)
[2022-11-26] MEDS: CHOLECALCIFEROL 5,000 UNITS 125 MCG TAB PO SCH (08:31)
[2022-11-26] MEDS: KETOCONAZOLE 2% CR 15 GM TUBE EXT SCH ×2 (08:34→20:31)
--- NOTE | 2022-11-26 08:57 | Orthopedic Progress Note ---
Date of Service November 26, 2022 Assessment & Plan (1) Osteoarthritis of right knee: Plan: POD #1 s/p R TKA, still requiring IV pain meds. Resume diet. WBAT with walker. OOB to chair. Continue pain control. Continue Prevena, plan change to Silverlon 1 week. DVT prophylaxis: TEDs 3 weeks, foot pumps while in hospital, ASA 81 mg BID for 6 weeks. PT/OT. Appreciate medicine input. D/C planning. Re-evaluate in afternoon to see if pain controlled with oral pain meds and determine if patient is stable for d/c. Present on Admission?: Yes Admission and Anticipated Discharge Date Admission Date: November 25, 2022 Subjective Right knee pain. Review of Systems Review of Systems: All systems reviewed & are unremarkable except as noted in HPI & below Physical Exam Physical Exam: RLE: BCR < 2 sec. Sensation to light touch intact distally. Wiggling ankle and toes. Calf soft and non-tender. Dressing is clean, dry, intact. Prevena in place and functioning. Unable to preform straight leg raise. Results & Data ([facility]) Vital Signs (Past 12 Hours) Vital Signs Temp Pulse Pulse Resp BP Pulse Ox O2 Del Method 11/26/22 07:43 37 C 88 20 118/67 98 Room Air 11/26/22 04:00 37.2 C 64 18 118/69 96 Room Air 11/25/22 22:34 36.9 C 60 18 125/73 98 Room Air Laboratory Results Laboratory Results WBC 8.04 K/ul (4.8-10.8) 11/26/22 07:09 RBC 3.81 M/uL (3.93-5.22) L 11/26/22 07:09 Hgb 11.6 g/dl (12.0-16.0) L 11/26/22 07:09 Hct 34.9 % (34.1-44.9) 11/26/22 07:09 MCV 91.6 fL (80.0-100.0) 11/26/22 07:09 MCH 30.4 pg (25.0-34.0) 11/26/22 07:09 MCHC 33.2 g/dL (32.0-36.0) 11/26/22 07:09 RDW Std Deviation 44.0 fL (36.4-46.3) 11/26/22 07:09 RDW Coeff of Ashlie 13.2 % (11.5-14.5) 11/26/22 07:09 Plt Count 211 K/uL (130-400) 11/26/22 07:09 MPV 10.2 fL (9.4-12.3) 11/26/22 07:09 Sodium 135 mmol/L (136-145) L 11/26/22 07:09 Potassium 4.2 mmol/L (3.5-5.1) 11/26/22 07:09 Chloride 105 mmol/L (98-107) 11/26/22 07:09 Carbon Dioxide 25 mmol/L (21-32) 11/26/22 07:09 Anion Gap 5 (3-11) 11/26/22 07:09 BUN 12 mg/dl (6-23) 11/26/22 07:09 Creatinine 0.57 mg/dl (0.6-1.2) L 11/26/22 07:09 Est Cr Clr Drug Dosing 138.3 ml/min 11/26/22 07:09 Est GFR ( Amer) 115.2 ml/min 11/26/22 07:09 Est GFR (Non-Af Amer) 99.4 ml/min 11/26/22 07:09 BUN/Creatinine Ratio 21.1 (10-20) H 11/26/22 07:09 Glucose 126 mg/dl (70-99(Fasting)) H 11/26/22 07:09 Calcium 8.0 mg/dl (8.5-10.1) L 11/26/22 07:09 SARS-CoV-2, RNA, NAAT NEGATIVE (NEGATIVE) 11/25/22 08:10 Impressions Knee X-Ray 11/25/22 13:20 TWO VIEWS RIGHT KNEE CLINICAL HISTORY: Postoperative examination. FINDINGS: AP and crosstable lateral portable views of the right knee are obtained. A right knee arthroplasty is in near anatomic alignment. There has been undersurface remodeling of the patella. No acute fracture is seen. There are expected postoperative changes around the knee including skin clips, soft tissue edema, and subcutaneous gas. IMPRESSION: Expected postoperative changes status post right knee arthroplasty. No acute fracture is seen. ACT 112: Negative or not required by law. Electronically signed by: Solis Pa M.D. 11/25/2022 2:30 PM
[2022-11-26] MEDS ORDERED: MULTIVITAMIN TAB PO SCH (09:00)
[2022-11-26] MEDS ORDERED: AMOXICILLIN/CLAVULANATE 875 MG TAB PO SCH (09:00)
[2022-11-26] MEDS ORDERED: NON-FORMULARY MEDICATION (Ciclopirox 8 % solution) TOP SCH (09:00)
[2022-11-26] MEDS: ACETAMINOPHEN 500 MG TAB PO SCH ×2 (14:07→20:28)
--- NOTE | 2022-11-26 15:47 | Orthopedic Progress Note ---
Date of Service November 26, 2022 Assessment & Plan (1) Osteoarthritis of right knee: Plan: POD #1 s/p R TKA, still requiring IV pain meds, however she is currently attempting to be managed on oral. She may require IV pain medication if pain is not controlled. She has been able to eat and drink fluids with any nausea and vomiting. She will continue with regular diet Continue to participate in therapies WBAT with walker OOB with assistance as tolerated Continue Prevena, plan change to Silverlon 1 week. DVT prophylaxis: TEDs 3 weeks, foot pumps while in hospital, ASA 81 mg BID for 6 weeks. D/C planning, aniticpate d/c to home tomorrow if her pain is better managed on oral pain medication and she is medically stable. She will be seen tomorrow morning to be reassessed for d/c. Admission and Anticipated Discharge Date Admission Date: November 25, 2022 Subjective Pt is s/p a right total knee POD #1. Pt was seen this afternoon approximately 3:00. She was laying in bed. She states she just got into bed after being up in the chair. She states she continues to have pain in the right knee and rates 7/10. She states she has pain in the knee with walking and moving the knee. she notes she was just given oral pain medication before she laid down. She denies any fever, chills, night sweats, CP, SOB, nausea, vomiting, or calf pain. Review of Systems Review of Systems: Please refer to H&P Physical Exam Physical Exam: General: Pt is alert and oriented x3 , answering questions appropriately Musculoskeletal: Dressing is intact w/ Prevena wound vac. Neg for any soiling and vac is functioning. Pt is able to flex the knee to approx 40 degrees and straighten the knee to -5. She is able to fully DF and PF ankle. Calf is soft and nontender. sensation is intact RLE. Results & Data ([facility]) Vital Signs (Past 12 Hours) Vital Signs Temp Pulse Pulse Resp BP Pulse Ox O2 Del Method 11/26/22 14:20 36.5 C 50 L 18 124/80 95 Room Air 11/26/22 13:23 94 11/26/22 12:11 36.7 C 50 L 18 139/71 99 Room Air 11/26/22 07:43 37 C 88 20 118/67 98 Room Air 11/26/22 04:00 37.2 C 64 18 118/69 96 Room Air Laboratory Results 11/26/22 11/26/22 Range/Units 07:09 07:09 WBC 8.04 (4.8-10.8) K/ul RBC 3.81 L (3.93-5.22) M/uL Hgb 11.6 L (12.0-16.0) g/dl Hct 34.9 (34.1-44.9) % MCV 91.6 (80.0-100.0) fL MCH 30.4 (25.0-34.0) pg MCHC 33.2 (32.0-36.0) g/dL RDW Std Deviation 44.0 (36.4-46.3) fL RDW Coeff of Ashlie 13.2 (11.5-14.5) % Plt Count 211 (130-400) K/uL MPV 10.2 (9.4-12.3) fL Sodium 135 L (136-145) mmol/L Potassium 4.2 (3.5-5.1) mmol/L Chloride 105 (98-107) mmol/L Carbon Dioxide 25 (21-32) mmol/L Anion Gap 5 (3-11) BUN 12 (6-23) mg/dl Creatinine 0.57 L (0.6-1.2) mg/dl Est Cr Clr Drug Dosing 138.3 ml/min Est GFR ( Amer) 115.2 ml/min Est GFR (Non-Af Amer) 99.4 ml/min BUN/Creatinine Ratio 21.1 H (10-20) Glucose 126 H (70-99(Fasting)) mg/dl Calcium 8.0 L (8.5-10.1) mg/dl
[2022-11-26] MEDS: PARoxetine HCL 20 MG TAB PO SCH (20:31)
[2022-11-26] MEDS: SENNA 8.6 MG TAB PO SCH (20:31)
[2022-11-27] MEDS: Scopolamine CHECK PATCH PLACEMENT SCH ×3 (00:55→16:07)
[2022-11-27] MEDS: oxyCODONE HCL IR 5 MG TAB (IMMEDIATE RELEASE) PO PRN ×4 (01:03→18:09)
[2022-11-27] MEDS: ACETAMINOPHEN 500 MG TAB PO SCH ×2 (05:35→12:41)
--- NOTE | 2022-11-27 07:40 | Orthopedic Progress Note ---
Date of Service November 27, 2022 Assessment & Plan (1) Osteoarthritis of right knee: Plan: POD #2 s/p R TKA, Now on PO pain meds. She has been able to eat and drink fluids with any nausea and vomiting. She will continue with regular diet Continue to participate in therapies WBAT with walker OOB with assistance as tolerated Continue Prevena, plan change to Silverlon 1 week. DVT prophylaxis: TEDs 3 weeks, foot pumps while in hospital, ASA 81 mg BID for 6 weeks. D/C planning, aniticpate d/c to home later today if she does well with PT and pain is well controlled w/ PO meds. Admission and Anticipated Discharge Date Admission Date: November 25, 2022 Subjective Pt is s/p a right total knee POD #2. Pt was seen this morning resting comforta edna in bed. She states that her last dose of IV pain medicine was yesterday evening. She states the she woke up once through the night and was given PO Oxycodone, which seems to be helping. She states that last evening she was able to walk much further with PO than she did yesterday AM. She denies any fever, chills, night sweats, CP, SOB, nausea, vomiting, or calf pain. Review of Systems Review of Systems: Please refer to H&P Physical Exam Physical Exam: Right Knee: prevena in place. Mild tenderness to palpation around dressing. Unable to perform active SLRT. Quad strength 2/5. Able to actively dorsi/plantar flex foot. Knee ROM from 0/85 actively. Periph pulses 2+. NV intact. Results & Data ([facility]) Vital Signs (Past 12 Hours) Vital Signs Temp Pulse Resp BP Pulse Ox O2 Del Method 11/26/22 20:30 Room Air 11/27/22 00:39 36.9 C 60 18 106/65 98 Room Air Diagnostic Findings Laboratory Results WBC 8.04 K/ul (4.8-10.8) 11/26/22 07:09 RBC 3.81 M/uL (3.93-5.22) L 11/26/22 07:09 Hgb 11.6 g/dl (12.0-16.0) L 11/26/22 07:09 Hct 34.9 % (34.1-44.9) 11/26/22 07:09 MCV 91.6 fL (80.0-100.0) 11/26/22 07:09 MCH 30.4 pg (25.0-34.0) 11/26/22 07:09 MCHC 33.2 g/dL (32.0-36.0) 11/26/22 07:09 RDW Std Deviation 44.0 fL (36.4-46.3) 11/26/22 07:09 RDW Coeff of Ashlie 13.2 % (11.5-14.5) 11/26/22 07:09 Plt Count 211 K/uL (130-400) 11/26/22 07:09 MPV 10.2 fL (9.4-12.3) 11/26/22 07:09 Sodium 135 mmol/L (136-145) L 11/26/22 07:09 Potassium 4.2 mmol/L (3.5-5.1) 11/26/22 07:09 Chloride 105 mmol/L (98-107) 11/26/22 07:09 Carbon Dioxide 25 mmol/L (21-32) 11/26/22 07:09 Anion Gap 5 (3-11) 11/26/22 07:09 BUN 12 mg/dl (6-23) 11/26/22 07:09 Creatinine 0.57 mg/dl (0.6-1.2) L 11/26/22 07:09 Est Cr Clr Drug Dosing 138.3 ml/min 11/26/22 07:09 Est GFR ( Amer) 115.2 ml/min 11/26/22 07:09 Est GFR (Non-Af Amer) 99.4 ml/min 11/26/22 07:09 BUN/Creatinine Ratio 21.1 (10-20) H 11/26/22 07:09 Glucose 126 mg/dl (70-99(Fasting)) H 11/26/22 07:09 Calcium 8.0 mg/dl (8.5-10.1) L 11/26/22 07:09 SARS-CoV-2, RNA, NAAT NEGATIVE (NEGATIVE) 11/25/22 08:10 Impressions Knee X-Ray 11/25/22 13:20 TWO VIEWS RIGHT KNEE CLINICAL HISTORY: Postoperative examination. FINDINGS: AP and crosstable lateral portable views of the right knee are obtained. A right knee arthroplasty is in near anatomic alignment. There has been undersurface remodeling of the patella. No acute fracture is seen. There are expected postoperative changes around the knee including skin clips, soft tissue edema, and subcutaneous gas. IMPRESSION: Expected postoperative changes status post right knee arthroplasty. No acute fracture is seen. ACT 112: Negative or not required by law. Electronically signed by: Solis Pa M.D. 11/25/2022 2:30 PM
[2022-11-27] MEDS: CYANOCOBALAMIN (B-12) 500 MCG TABLET PO SCH (08:33)
[2022-11-27] MEDS: ASCORBIC ACID 500 MG TAB PO SCH (08:33)
[2022-11-27] MEDS: AMOXICILLIN/CLAVULANATE 875 MG TAB PO SCH (08:34)
[2022-11-27] MEDS: CARBIDOPA/LEVODOPA 25/100MG TAB PO SCH ×3 (08:34→16:08)
[2022-11-27] MEDS: MULTIVITAMIN TAB PO SCH (08:34)
[2022-11-27] MEDS: CHOLECALCIFEROL 5,000 UNITS 125 MCG TAB PO SCH (08:34)
[2022-11-27] MEDS: DOCUSATE SODIUM 100 MG CAP PO SCH (08:34)
[2022-11-27] MEDS: ROSUVASTATIN CALCIUM 5 MG TAB PO SCH (08:34)
[2022-11-27] MEDS: KETOCONAZOLE 2% CR 15 GM TUBE EXT SCH (08:35)
[2022-11-27] MEDS: ASPIRIN 81 MG ECTAB PO SCH (08:35)
--- NOTE | 2022-11-27 16:51 | Discharge Summary ---
Date of Service November 27, 2022 Admission HPI Per Admitting Provider Patient is a 62 Years year-old Female presenting today for their pre-operative history and physical examination prior to undergoing a knee arthroplasty with Dr Fuller. Patient had a left total knee arthroplasty done by Dr. Fuller in 2011 and an ID polyexchange November 2014. She is currently on suppressive antibiotics due to recurrent cellulitis. The patient has failed conservative treatment for right knee osteoarthritis, including cortisone injections and Euflexxa injections, and is electing to proceeding with surgical intervention. Admission Exam Per Admitting Provider Physical Examination: General: Pt is well nourished, seated on the exam table AA&O, in NAD, calm and cooperative during exam HENT: Nontraumatic, no gross deformity, hearing and vision grossly in-tact, PERRL Neuro: Gross motor and sensory grossly in tact Heart: +S1, +S2, RRR, no murmurs appreciated Lungs: CTABL, no wheezing appreciated Right knee: No major swelling noted. No skin abnormalities. Patient has mild medial and lateral joint line tenderness. Range of motion -10 to 95 degrees. Calf supple and nontender. Strength 4 out of 5. Ligaments stable. Principal Diagnosis Right knee osteoarthritis Discharge Exam Right Knee: prevena in place. Mild tenderness to palpation around dressing. Unable to perform active SLRT. Quad strength 2/5. Able to actively dorsi/plantar flex foot. Knee ROM from 0/85 actively. Periph pulses 2+. NV intact. Discharge Data Allergies Allergy/AdvReac Type Severity Reaction Status Date / Time coconut Allergy Intermediate Hives Verified 11/25/22 08:20 oxaprozin Allergy Unknown Unknown Verified 11/25/22 08:20 Sulfa (Sulfonamide Allergy Unknown Unknown Verified 11/25/22 08:20 Antibiotics) Consultations 11/25/22 14:35 Consult Hospitalist Routine Procedures Performed Operation Date: 11/25/22 10:20 Actual Procedures p Right Total Knee Arthroplasty, Cemented(Right) - Casey Fuller MD Ordered Studies 11/25/22 05:00 US - OR guided needle placemen Routine Hospital Course (1) Osteoarthritis of right knee: Kasi bandage applied to Right LE. Prevena in place and working well. Patient did fairly well with PT today and they recommended discharge home would be appropriate. Today pain is well controlled with PO meds. Rx for Oxycodone sent to her pharmacy. Patient will be discharged home today with inhome PT for the first 2 weeks post operatively. POD #2 s/p R TKA, Now on PO pain meds. She has been able to eat and drink fluids with any nausea and vomiting. She will continue with regular diet Continue to participate in therapies WBAT with walker OOB with assistance as tolerated Continue Prevena, plan change to Silverlon 1 week. DVT prophylaxis: TEDs 3 weeks, foot pumps while in hospital, ASA 81 mg BID for 6 weeks. D/C planning, aniticpate d/c to home later today if she does well with PT and pain is well controlled w/ PO meds. Total Time Total Time Spent Total Time Spent (In Minutes): 20 mins Discharge Plan Discharge Items Patient Disposition: Home - Home Health Services Reason For Visit: Right Knee Osteoarthritis Discharge Diagnosis: right knee osteoarthritis s/p right total knee arthroplasty Condition on Discharge: Good Activity: Per Instructions section Lifting: Wait until after follow-up appointment Bathing: Keep incision dry Sexual Activity: Wait until after follow-up appointment Exercise/Sports: Wait until after follow-up appointment Weightbearing: Full weightbearing Non-emergency contact: Surgeon Call non-emergency contact if: your pain is not controlled, your temperature is above 101.5 and your wound has increased drainage Follow-up/Referrals: Inocente Daley MD [Primary Care Provider] - Gaby Comer PA-C [Physician Guide Domestic Tour] - 12/02/22 11:00 am Diet: Regular Addtl Attending Provider Instructions: ORTHOPEDIC DISCHARGE INSTRUCTIONS -Weight bearing as tolerated with walker to assist in ambulation -Home health/PT x 2 weeks. You will receive home exercises to do on your own for the first two weeks from home PT. Please do these exercises 3 times a day. -Frequently ice, at least 20 minutes 5 times a day. -Elevate operative leg above your heart with pillows/blankets underneath your ankle, never under your knee. This helps to keep the knee in extension and prevent a flexion contracture. -The Prevena wound vac is in place. This will stay on until your follow up appointment on 12/02/22 with Gaby Comer PA-C. Do not get the incision or area wet until this is removed at that appointment. No baths, hot tubs or swimming pools. Keep dressing clean and dry. -DVT prophylaxis: Aspirin 81mg twice a day for 6 weeks, JOCELYN compression stockings for 3 weeks -While taking Aspirin, if you start to get upset stomach, we recommend taking over the counter Pepcid, 20mg twice a day as long as you are taking the Aspirin -Pain control: oxycodone 5mg every 4-6 hours as needed, Tylenol 500-1000mg every 8 hours -Infection prophylaxis: Augmentin twice a day as prescribed by infectious disease for 1 week after surgery to help prevent infection. Then may resume normal prescription as advised by infectious disease -To promote healing, please take 500mg Vitamin C twice a day with meals x 2 weeks and Iron 325 mg twice a day with meals x 2 weeks -While on narcotic pain medication and iron supplement, we recommend you take a stool softener to prevent constipation -Follow up as scheduled in 2 weeks with [facility] for post op evaluation and Zip-line removal. Please call our office sooner @ [phone] if you have any questions or concerns Pending Studies at Discharge: No Stand-Alone Forms: [facility], Pain - Opioid Pain Management Medications and DC Order Prescriptions: New oxycodone 5 mg tablet 5 mg PO Q4H Qty: 28 0RF Continued rosuvastatin 5 mg tablet 5 mg PO QAM Qty: 90 3RF cyanocobalamin (vitamin B-12) 1,000 mcg tablet 1,000 mcg PO QAM multivitamin tablet 1 tab PO QAM ascorbic acid (vitamin C) 500 mg capsule 500 mg PO QAM cholecalciferol (vitamin D3) [Vitamin D3] 5,000 unit Tablet 5,000 unit PO QAM ibuprofen 600 mg tablet 600 mg PO BID PRN (Reason: pain) paroxetine HCl 20 mg Tablet 20 mg PO QPM amoxicillin-pot clavulanate 875-125 mg Tablet 1 tab PO QAM ketoconazole 2 % Cream 1 applic EXT BID 28 Days Qty: 60 1RF acetaminophen [Tylenol] 325 mg Tablet 325 mg PO QID PRN (Reason: Pain) ciclopirox 8 % solution 1 applic TOPICAL DAILY carbidopa-levodopa 25-100 mg tablet 2 tab PO QID Discharge Orders: Discharge Order (Routine); Ordered 11/27/22 Ordered By: Choco Larose Admission Data Admit Date/Time: 11/25/22 13:20 Attending Provider: Casey Fuller Admit Provider: Casey Fuller Primary Care Provider: Inocente Daley Other Providers: Fabien Garcias ; Arabella Tuttle ; Demetrius Vasquez ; Maxi Valdivia ; Reed Guevara ; Jose Teixeira ; Solis Quach ; Emperatriz Kelly ; Halie Cedeno ; Jim Styles ; Raman Delgado ; Cady Rubin ; Shivam Ghotra ; Guero Ledezma ; Ashlye Dai ; Sadaf Medina ; Amberly Corrigan ; Bertin Huizar ; Tucker Douglas ; Nani Garcia ; Arabella Cheatham ; Kirby Reilly ; Shakir Hammond ; Demetrius Ambrose ; Josefa Monet ; Jorge Mora ; Phan Thomas ; Cele Mishra ; Lokesh Mast ; Sandrine Szymanski ; Inocente Engel ; Jane Tate ; Nam Elliott ; Jaylon Carrillo ; Medardo Toscano ; Antonio Morales ; [facility] Other Interventions: Discharge Summary Assessment (RN) Last Done: 11/27/22 16:20
== END 2022-11-27 18:50 | disposition home health service (06) ==
LOC: ASU 07:58 → 3E 07:58